=== PATIENT | female | born 1960 | race Caucasian/White ===

== ENCOUNTER → 2017-09-02 13:57 | Outpatient (CLI) | payer MEDICARE, SELFPAY ==
--- NOTE | 2017-09-02 15:33 | NEURO ---
NCS and/or EMG Patient Report Ordering Doctor: Maurisio Bueno DATE OF SERVICE: 09/02/17 Tata Ordaz is a 57-year-old female with chief complaint of weakness in the right arm. She reports difficulty obtaining full flexion of her right elbow. She notes this to be the case after fall a few months back. Testing is ordered for needle EMG only Electrodiagnostic findings: Needle EMG testing was performed in the right infraspinatus, deltoid, pronator teres, biceps, triceps, flexor carpi ulnaris, first dorsal interosseous and right cervical paraspinals. All muscles tested showed no evidence of denervation with normal motor unit action potentials. Electrodiagnostic impression: This is a normal needle EMG of the right upper limb and cervical paraspinals. There is no electrodiagnostic evidence for cervical radiculopathy. An accurate assessment regarding peripheral neuropathy cannot be determined. If symptoms persist, consider correlation with nerve conduction testing. If there are any further questions, please do not hesitate to contact me.
== END ==
PROVIDERS: Family Provider Student in an Organized Health Care Education/Training Program; PCP Student in an Organized Health Care Education/Training Program; Visit Provider Family Medicine
DX: M54.12 Radiculopathy, cervical region (principal)
CPT/HCPCS: 95860

== ENCOUNTER 2017-09-02 19:47 | Emergency (ER) | payer MEDICARE, SELFPAY ==
[2017-09-02 19:48] VITALS: BP 166/86; PULSE 65; RESP 16; TEMP 36.9; O2SAT 98; BMI 31.1
--- NOTE | 2017-09-02 20:29 | CT_ITS ---
STUDY: CT ABDOMEN AND PELVIS WITHOUT CONTRAST REASON FOR EXAM: Female, 57 years old. Left flank pain RADIATION DOSAGE (If Supplied By Facility): CTDIvol = ( 8.20 ) mGy, DLP = ( 413.64 ) mGycm TECHNIQUE: Transaxial images were obtained from the dome of the diaphragm to the symphysis pubis without oral contrast, and without intravenous contrast. Sagittal and coronal images were reconstructed. Individualized dose optimization techniques were used for this CT. COMPARISON: None. FINDINGS: The visualized lung bases are unremarkable. The visualized portions of the heart are within normal limits. Small hiatal hernia is present. Normal liver. Normal gallbladder and extrahepatic biliary system. Normal spleen. Normal pancreas. Normal bilateral adrenal glands. There are small simple cortical cysts in the upper and lower pole of the right kidney. There is moderate pelvocaliectasis of the left kidney in association with hydroureter secondary to a calculus in the upper third of the ureter measuring approximately 5 to 6 mm in size. There also appears to be a possible second smaller calculus more distally Normal visualized stomach. Normal small intestine. There are diverticular changes in the descending and sigmoid colon without evidence for acute diverticulitis.. The appendix is visualized and appears normal. Normal abdominal aorta. Normal inferior vena cava. Normal retroperitoneum. Incompletely distended diffusely thick-walled bladder likely of no significance. Normal abdominal wall. Lumbar spine demonstrates mild spondylosis. CT/Abdomen/Pelvis without Cont IMPRESSION: Moderate left hydroureteronephrosis secondary to proximal ureteral calculus measuring 5 to 6 mm in size. Cannot definitively exclude second smaller more distal calculus. Electronically Signed: Rafiq Randall MD at 21:48 EDT , Service support ,
[2017-09-02 20:44] LABS: Mucous, Urine 0 SEEN /hpf (<or=2+)
[2017-09-02] MEDS: 0.9% Normal Saline 1,000 ML 250 ML IV (20:51)
[2017-09-02] MEDS: Ondansetron 4 MG/2 ML Vial IV (20:51)
[2017-09-02] MEDS: Ketorolac 30 MG/ML Syringe IV (20:51)
[2017-09-02 20:53] LABS: Absolute Lymphocyte Count 3.21 X10^3/ul (0.83-4.51); Absolute Neutrophil Count 9.9 X10^3/uL (2.0-7.7); Basophil# 0.02 X10^3/uL; Basophil% 0.1 % (0-1); Eosinophil# 0.24 X10^3/uL; Eosinophils% 1.7 % (0-5); Hematocrit 36.8 % (37-47); Hemoglobin 12.2 g/dl (12.0-15.0); Lymphocyte # 3.21 X10^3/ul (4.0); Lymphocyte % 22.1 % (19-41); Mean Corp Hgb Conc 33.2 g/gl (32-36); Mean Corpuscular Hgb 32.7 pg (27.0-32.0); Mean Corpuscular Volume 98.7 fL (81-99); Mean Platelet Vol. 9.8 fl (6.2-12.0); Monocyte# 1.12 X10^3/uL; Monocyte% 7.7 % (0-10); Neutrophil # 9.89 X10^3/uL (2.7-7.7); Neutrophil % 68.1 % (47-70); Platelet Count 295 K/mm3 (150-450); RBC Distribution Width CV 12.8 % (11.6-14.6); Red Blood Count 3.73 M/mm3 (4.2-5.4); White Blood Count 14.5 K/mm3 (4.4-11.0)
[2017-09-02 20:55] LABS: POSITIVE COUNT NO; POSITIVE DIFFERENTIAL NO; POSITIVE MORPHOLOGY NO
[2017-09-02 20:57] LABS: Color, Urine Yellow (Yellow); Glucose, Dipstick Normal (Normal); Ketone-Dipstick Negative (Negative); Leukocyte Esterase-Dipstick 100 /ul (Negative); Nitrite-Dipstick Negative (Negative); Occult Blood-Urine 250 /ul (Negative); Protein-Dipstick 30 mg/dl (Negative); Urine Bilirubin Dipstick Negative (Negative); Urine Clarity Clear (Clear); Urine Urobilinogen Normal (Normal)
[2017-09-02 21:04] LABS: Bacteria RARE /hpf (None Seen); Calcium Oxalate Crystals Ur RARE /hpf (<or=2+); Red Blood Cells-Urine 0-5 SEEN /hpf (0-5); Squamous Epithelial Cells - UA 0-5 SEEN /hpf (5-10); White Blood Cells 0-5 SEEN /hpf (0-5)
[2017-09-02 21:17] LABS: Anion Gap 9 (5-15); BUN 14 mg/dL (7-18); BUN/Creat Ratio 10.8 RATIO (10-20); Calcium,Total 8.7 mg/dL (8.5-10.1); Chloride 104 mmol/L (98-107); EST Glomerular Filtration Rate 45 mL/min (>60); Est Glom Filt Rate - Afr Amer 54 mL/min (>60); Estimated Creatinine Clearance 33.47 ml/min; Glucose 106 mg/dL (74-106); Potassium 3.5 mmol/L (3.5-5.1); Sodium Level 140 mmol/L (136-145)
[2017-09-02 21:39] VITALS: BP 143/78; PULSE 70; RESP 16; O2SAT 98
--- NOTE | 2017-09-02 22:15 | ED.DCSUM_ITS ---
- ER Visit Summary Date of Service: 09/02/17 Chief Complaint: Left flank pain History of Present Illness: The patient is a 57 F who states that today she around 3:00 she has sudden onset of left flank pain. Described as pressure and sharp and stabbing. The pain comes in waves and is severe when it is present. She has had similar pains in the past when she has had kidney stones. She is seeing Dr. Garzon in [place] for urology. She denies any blood in the stool. She has had to have lithotripsy as well as ureteral stents before. No fevers. She does note nausea. The patient points to her inguinal region as the source of her pain that radiates into the left flank. Physical Examination: Afebrile vital signs are stable Gen: Well-nourished well-developed patient appears in pain pacing around the room. Head: Normocephalic atraumatic Eyes: Perrl EOMI ENT: TMs clear no rhinorrhea moist mucous membranes Neck: Supple no lymphadenopathy no JVD nontender CVS: Regular rate rhythm no murmurs normal S1-S2 Respiratory: No distress clear to auscultation bilaterally chest nontender Abdomen: Soft nontender nondistended normal bowel sounds no masses Back: Nontender Extremity: Nontender no edema Skin: Normal color no rash Neuro: alert orientated ?3 CN II-XII intact normal strength sensation reflexes gait cerebellar Psych: Normal affect normal mood Test Results: Urine demonstrates calcium oxalate crystals. White count is slightly elevated. Normal creatinine. CT demonstrates a mid ureteral 6 mm stone with a possible second stone just in front of it. There is associated hydronephroureter. Emergency Department Course and Treatment: Patient received IV fluids and Toradol has been resting more comfortably. I will have her follow-up with Dr. Garzon. Return if worsening. I will write for De Berry, Flomax, and Zofran. She understands her plan is comfortable with it Impression: Left mid ureteral 6 mm calculus with hydronephroureter and renal colic This note was generated with [employer] dictation software. It may contain incorrect words, spelling, and punctuation that were not noted in review of the chart prior to signing ED Disposition - Plan for ED Patient: Disposition: Home or Assisted Living Chief Complaint: Flank Pain Instructions: ED Stone Renal W Colic Prescriptions: Hydrocodone Bitart/Apap 5-325 [De Berry 5/325] 1 - 2 tab PO Q4H PRN PRN 3 Days #20 tab PRN Reason: Pain Ondansetron [Zofran Odt] 4 mg PO Q8H PRN PRN #10 tab PRN Reason: Nausea Tamsulosin HCl [Flomax] 0.4 mg PO DAILY 7 Days cap Additional Instructions: Call Dr. Garzon's office tomorrow to arrange early follow-up. Return if worsening or any concerns.
[2017-09-02] MEDS: HYDROcodone Bitartrate/Apap 5/325 Tablet PO (22:19)
[2017-09-02 22:26] VITALS: BP 147/76; PULSE 68; RESP 18; O2SAT 100
== END 2017-09-02 22:27 | disposition home or self-care (01) ==
PROVIDERS: Emergency Provider Emergency Medicine; Family Provider Student in an Organized Health Care Education/Training Program; PCP Student in an Organized Health Care Education/Training Program
DX: N20.1 Calculus of ureter (principal); N13.30 Unspecified hydronephrosis; Z87.442 Personal history of urinary calculi
CPT/HCPCS: 74176; 80048; 81001; 85025; 95860; 96361; 96374; 96375; 99284; J7030; A4216; J2405

== ENCOUNTER → 2017-09-14 10:01 | Outpatient (CLI) | payer MEDICARE, SELFPAY ==
--- NOTE | 2017-09-14 10:04 | US_ITS ---
STUDY: RENAL ULTRASOUND - COMPLETE REASON FOR EXAM: Female, 57 years old. Kidney stones, hydronephrosis, follow-up from earlier CT. TECHNIQUE: Ultrasound evaluation of the kidneys was performed with real-time and static anderson-scale imaging. COMPARISON: CT abdomen and pelvis September 02, 2017; bilateral renal ultrasound December 03, 2012. FINDINGS: RIGHT KIDNEY: Normal location of the right kidney, which is normal in size. The right kidney measures 10.4 x 5.6 x 4.1 cm. There is a normal cortex of the right kidney. The renal cortex measures 1.3 cm. There is a 1.1 x 1.1 x 0.8 cm mildly exophytic cortical cyst at the medial tip of the upper pole. Occasional focal hyperechogenicity suggesting non-shadowing stones are measured by the technologist, ranging from 3-5 mm. The largest is at the upper pole. There is no right hydronephrosis. DISTAL RIGHT URETER: There is non-visualization of the distal right ureter. There is no demonstrated right ureterovesical junction calculus. There is a visualized right ureteral jet. LEFT KIDNEY: Normal location of the left kidney, which is normal in size. The left kidney measures 9.7 x 5.6 x 5.6 cm. There is a normal cortex of the left kidney. The renal cortex measures 1.7 cm. Well-defined 9 x 12 x 12 mm rounded hypoechogenicity consistent with a cortical cyst seen at the midpole. There are a few hyperechogenicity is consistent with left renal calculi. One of the largest is at the renal pelvis, measuring 4 mm. There is mild pelvocaliectasis as well as mild distention of the visualized proximal left ureter. DISTAL LEFT URETER: There is non-visualization of the distal left ureter. There is no demonstrated left ureterovesical junction calculus. There is a visualized left ureteral jet. BLADDER: The distended urinary bladder has a volume of 268 ml. The empty urinary bladder has a volume of 9.6 ml. There is a normal wall thickness of the distended urinary bladder. There is no demonstrated mass within the urinary bladder. There are no demonstrated bladder calculi. US/Kidney and Bladder IMPRESSION: 1. Bilateral renal cortical cysts, as described. 2. Focal echogenicities suggesting nonocclusive renal stones are noted bilaterally, but no definite stones were seen by CT except the occlusive stone in the left ureter. 3. Mild left hydronephrosis, consistent with obstruction. It is unclear if this is due to the ureteral stone seen on earlier CT versus other occult obstructive etiology. 4. The urinary bladder is unremarkable. Electronically Signed: Peter Brady MD at 17:22 EDT , Service support ,
== END ==
PROVIDERS: Family Provider Student in an Organized Health Care Education/Training Program; PCP Student in an Organized Health Care Education/Training Program
DX: N20.0 Calculus of kidney (principal); N20.1 Calculus of ureter; N13.30 Unspecified hydronephrosis
CPT/HCPCS: 76770

== ENCOUNTER 2018-03-25 03:29 | Emergency (ER) | payer MEDICARE, SELFPAY ==
[2018-03-25 03:30] VITALS: BP 174/76; PULSE 81; RESP 20; TEMP 36.6; O2SAT 99; BMI 32.0
--- NOTE | 2018-03-25 03:44 | EKG12_ITS ---
Test Reason : HYPERTENSION Blood Pressure : / mmHG Vent. Rate : 083 BPM Atrial Rate : 083 BPM P-R Int : 158 ms QRS Dur : 092 ms QT Int : 428 ms P-R-T Axes : 069 083 090 degrees QTc Int : 502 ms Normal sinus rhythm Cannot rule out Anterior infarct , age undetermined Prolonged QT Abnormal ECG Confirmed by EDITH GARCIA ([id number]), avid editor TAYLOR BECERRIL ([id number]) on 04/06/2018 8:23:46 AM Referred By: RISHI Confirmed By:EDITH GARCIA
[2018-03-25 04:09] LABS: Bacteria 0 SEEN /hpf (None Seen); Mucous, Urine 0 SEEN /hpf (<or=2+); Red Blood Cells-Urine 0 SEEN /hpf (0-5)
[2018-03-25 04:23] LABS: Absolute Lymphocyte Count 4.07 X10^3/ul (0.83-4.51); Absolute Neutrophil Count 3.7 X10^3/uL (2.0-7.7); Basophil# 0.02 X10^3/uL; Basophil% 0.2 % (0-1); Eosinophil# 0.45 X10^3/uL; Eosinophils% 4.8 % (0-5); Hematocrit 37.1 % (37-47); Hemoglobin 12.2 g/dl (12.0-15.0); Lymphocyte # 4.07 X10^3/ul (4.0); Lymphocyte % 43.9 % (19-41); Mean Corp Hgb Conc 32.9 g/gl (32-36); Mean Corpuscular Hgb 32.7 pg (27.0-32.0); Mean Corpuscular Volume 99.5 fL (81-99); Mean Platelet Vol. 10.5 fl (6.2-12.0); Monocyte# 1.03 X10^3/uL; Monocyte% 11.1 % (0-10); Neutrophil # 3.69 X10^3/uL (2.7-7.7); Neutrophil % 39.8 % (47-70); POSITIVE COUNT NO; POSITIVE DIFFERENTIAL NO; POSITIVE MORPHOLOGY NO; Platelet Count 333 K/mm3 (150-450); RBC Distribution Width CV 12.2 % (11.6-14.6); RBC Distribution Width SD 43.7 fl (35.1-43.9); Red Blood Count 3.73 M/mm3 (4.2-5.4); White Blood Count 9.3 K/mm3 (4.4-11.0)
[2018-03-25 04:24] LABS: Color, Urine Yellow (Yellow); Glucose, Dipstick Normal (Normal); Ketone-Dipstick Negative (Negative); Protein-Dipstick Negative (Negative); Urine Bilirubin Dipstick Negative (Negative); Urine Clarity Clear (Clear); Urine pH 6.5 (5.0 - 8.0)
[2018-03-25 04:25] LABS: Leukocyte Esterase-Dipstick 25 /ul (Negative); Nitrite-Dipstick Negative (Negative); Occult Blood-Urine Negative /ul (Negative); Urine Urobilinogen Normal (Normal)
[2018-03-25 04:33] LABS: Squamous Epithelial Cells - UA 0-5 SEEN /hpf (5-10); White Blood Cells 0-5 SEEN /hpf (0-5)
[2018-03-25 04:36] LABS: Anion Gap 8 (5-15); BUN 20 mg/dL (7-18); BUN/Creat Ratio 20.1 RATIO (10-20); Calcium,Total 9.1 mg/dL (8.5-10.1); Chloride 105 mmol/L (98-107); EST Glomerular Filtration Rate 60 mL/min (>60); Est Glom Filt Rate - Afr Amer 73 mL/min (>60); Estimated Creatinine Clearance 42.97 ml/min; Glucose 102 mg/dL (74-106); Potassium 3.2 mmol/L (3.5-5.1); Sodium Level 143 mmol/L (136-145)
[2018-03-25 04:50] VITALS: BP 139/70; PULSE 73; RESP 13; O2SAT 96
--- NOTE | 2018-03-25 04:53 | ED.VISSUMM ---
- ER Visit Summary Date of Service: 03/25/18 Chief Complaint: [Hypertension] History of Present Illness: The patient is a 58 F [presents the emergency department complaint of high blood pressure this evening. Patient states that she was getting ready to go to bed check her blood pressure and noted that it was high so she checked it again. And it was over 200 systolic. Patient states that she has been under increased stress of late. Patient did have a sensation of pressure behind her eyes and in her head as well as the back of her head and neck. Patient took 2 Aleve and those symptoms have resolved. Patient denies any chest pain or shortness of breath. Patient has had similar symptoms in the past when her blood pressures been high. Patient states normally her blood pressure runs in the normal range when she is taking her lisinopril. Patient has been compliant with her lisinopril. She denies recent illness.] Physical Examination: [HEENT-PERRLA, EOMI. Cranial nerves II through XII grossly intact. TMs clear. Mucous membranes moist. No adenopathy. Cardiovascular-regular rate and rhythm without murmur or ectopy Lungs-clear to auscultation, chest wall stable without crepitus or subcu emphysema Abdomen-normoactive bowel sounds, soft, nontender, no rebound or rigidity, no peritoneal signs. Neuro [id number] and heel singh testing within normal limits, negative Romberg, negative pronator drift Extremities-intact ?4, normal range of motion, normal pulses, atraumatic] Test Results: [EKG obtained arrival shows sinus rhythm with a ventricular rate of 83 bpm with no acute ST segment changes. CBC with differential is normal. Chemistries showed a sodium 143, potassium 3.2, chloride 105, CO2 30, glucose 102, BUN 20, creatinine 1.0. Troponin was less than 0.015. Urinalysis was normal.] Emergency Department Course and Treatment: [Patient was monitored and without any treatment her blood pressure now is 139/70 prior to discharge. Patient is asymptomatic.] Treatment Plan: Patient advised to keep a journal of her blood pressures and follow-up with her primary care physician within a week [] Disposition: [Discharged home in stable condition. Patient advised return of chest pain, shortness of breath, severe headaches, or condition should worsen anyway.] Impression: [Hypertension] This note was generated with Dragon dictation software. It may contain incorrect words, spelling, and punctuation that were not noted in review of the chart prior to signing ED Disposition - Plan for ED Patient: Chief Complaint: Hypertension Referrals: José Luis Boss DO [Primary Care Provider] -
--- NOTE | 2018-03-25 04:56 | ED.DEP ---
ED Disposition - Plan for ED Patient: Chief Complaint: Hypertension Instructions: ED HTN Established Referrals: José Luis Boss DO [Primary Care Provider] - 5-7 Days
[2018-03-25 05:07] VITALS: BP 126/69; PULSE 76; RESP 18; O2SAT 97
== END 2018-03-25 05:10 | disposition home or self-care (01) ==
LOC: ED 04:15
PROVIDERS: Emergency Provider Emergency Medicine; Family Provider Student in an Organized Health Care Education/Training Program; PCP Student in an Organized Health Care Education/Training Program
DX: I10 Essential (primary) hypertension (principal); E78.00 Pure hypercholesterolemia, unspecified; J45.909 Unspecified asthma, uncomplicated; E03.9 Hypothyroidism, unspecified
CPT/HCPCS: 80048; 81001; 84484; 85025; 93005; 99285; A4216

== ENCOUNTER 2018-07-15 03:06 | Observation (INO) | payer MEDICARE, SELFPAY ==
[2018-07-15] VITALS (11 sets, daily range): BP systolic 101–158; BP diastolic 45–91; PULSE 62–72; RESP 11–16; TEMP 36.4–36.8; O2SAT 94–98; BMI 32.4; BMI 31.8; BMI 31.9
--- NOTE | 2018-07-15 03:29 | RAD_ITS ---
HISTORY: CPChest Pain EXAM:XR Chest 2 Views: COMPARISON: 09/21/2014 FINDINGS: EKG leads in place. No significant change. Normal heart size. No vascular congestion, pleural effusion, or acute pulmonary infiltration. No pneumothorax. Previous surgical fusion of the lower cervical spine. RAD/Chest PA and Lateral IMPRESSION: No acute cardiopulmonary disease. No significant interval change. at [id number] Reported and signed by: Steven Marin MD Electronically Signed: Steven Marin, at 3:56 EST Tel , Service support ,
--- NOTE | 2018-07-15 03:29 | EKG12_ITS ---
Test Reason : CP Blood Pressure : / mmHG Vent. Rate : 073 BPM Atrial Rate : 073 BPM P-R Int : 170 ms QRS Dur : 136 ms QT Int : 474 ms P-R-T Axes : 068 101 077 degrees QTc Int : 522 ms Normal sinus rhythm Right bundle branch block Possible Inferior infarct , age undetermined Abnormal ECG Confirmed by TRIP RACHEL, SAV ([id number]), editor managing director TAYLOR BECERRIL ([id number]) on 07/19/2018 10:12:21 AM Referred By: Abdifatah Yuan Confirmed By:SAV DOMINIQUE MD
[2018-07-15] MEDS: Morphine 4 MG/ML Syringe IV (03:36)
[2018-07-15] MEDS: Aspirin 81 MG TAB.CHEW 243 MG PO (03:36)
--- NOTE | 2018-07-15 03:38 | ED.VISSUMM ---
- ER Visit Summary Date of Service: 07/15/18 Chief Complaint: [] Chest pain History of Present Illness: The patient is a 58 F presents with chest pain for last 2 days. Gradual onset. It is a continuous aching pain. Current severity is moderate. It started on her right 2 days ago and she began to feel on her left side tonight at 8 PM. She was unable to sleep this evening. She did take 2 Aleve at 8 PM and one baby aspirin this evening prior to coming into the emergency department. She was admitted for chest pain in 2014 with negative nuclear stress test. This was her last stress test. 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 She does have hypertension and a family history of early coronary artery disease as well. She denies any pulmonary embolism risk factors. Is not movement related. The patient does have a chronic right-sided rotator cuff tear which causes her pain but stated that this does not feel like that. Physical Examination: [] Vital signs reviewed General: Well-nourished well-developed Head: Normocephalic atraumatic Eyes: Pupils equal round and reactive to light extraocular movements intact ENT: TMs clear no hemotympanum no trauma Neck: Nontender full range of motion Cardiovascular: Regular rate rhythm no murmurs normal S1-S2 Respiratory: No distress clear to auscultation bilaterally chest nontender Abdomen: Soft nontender nondistended normal bowel sounds no masses Back: Nontender no CVA tenderness Extremities: Nontender active range of motion ?4 extremities no trauma Skin: Normal color no trauma Neuro alert oriented cranial nerves II through XII intact normal strength sensation reflexes Test Results: [] Emergency Department Course and Treatment: [] EKG shows sinus rhythm at a rate of 73 with a right bundle branch block noted. No STEMI pattern. This right bundle branch block is new. Lab work and chest x-ray obtained. Patient given oral aspirin times 381 mg tablets as she already took 1 tablet at home. Given morphine IV and nitroglycerin sublingual. On reevaluation patient felt better but still with some pain. Chest x-ray showed nothing acute. CBC and chemistries show a creatinine of 1.1 otherwise nothing acute. Troponin negative. Discussed case with the patient. Her heart score is a 4 which puts her at moderate risk. She has a new right bundle branch block. She is willing to be admitted for further cardiac evaluation. Have a low suspicion for PE or dissection. I do not think she needs a CT of her chest. Discussed with the hospitalist and will be admitted. Treatment Plan: [] Disposition: [] Impression: [] Chest pain Right bundle branch block This note was generated with [employer] dictation software. It may contain incorrect words, spelling, and punctuation that were not noted in review of the chart prior to signing ED Disposition - Plan for ED Patient: Referrals: José Luis Boss DO [Primary Care Provider] -
[2018-07-15 03:48] LABS: Absolute Lymphocyte Count 4.79 X10^3/ul (0.83-4.51); Absolute Neutrophil Count 3.8 X10^3/uL (2.0-7.7); Basophil# 0.02 X10^3/uL; Basophil% 0.2 % (0-1); Eosinophil# 0.45 X10^3/uL; Eosinophils% 4.5 % (0-5); Hematocrit 38.2 % (37-47); Hemoglobin 12.9 g/dl (12.0-15.0); Lymphocyte # 4.79 X10^3/ul (4.0); Lymphocyte % 48.4 % (19-41); Mean Corp Hgb Conc 33.8 g/gl (32-36); Mean Corpuscular Hgb 33.3 pg (27.0-32.0); Mean Corpuscular Volume 98.7 fL (81-99); Monocyte# 0.82 X10^3/uL; Monocyte% 8.3 % (0-10); Neutrophil # 3.79 X10^3/uL (2.7-7.7); Neutrophil % 38.3 % (47-70); Platelet Count 309 K/mm3 (150-450); RBC Distribution Width CV 12.8 % (11.6-14.6); RBC Distribution Width SD 45.4 fl (35.1-43.9); Red Blood Count 3.87 M/mm3 (4.2-5.4); White Blood Count 9.9 K/mm3 (4.4-11.0)
[2018-07-15 03:49] LABS: POSITIVE COUNT NO; POSITIVE DIFFERENTIAL NO; POSITIVE MORPHOLOGY NO
[2018-07-15 04:01] LABS: Anion Gap 8 (5-15); BUN 16 mg/dL (7-18); BUN/Creat Ratio 14.5 RATIO (10-20); Calcium,Total 8.9 mg/dL (8.5-10.1); Chloride 106 mmol/L (98-107); EST Glomerular Filtration Rate 54 mL/min (>60); Est Glom Filt Rate - Afr Amer 65 mL/min (>60); Estimated Creatinine Clearance 39.07 ml/min; Glucose 128 mg/dL (74-106); Potassium 3.5 mmol/L (3.5-5.1); Sodium Level 143 mmol/L (136-145)
--- NOTE | 2018-07-15 04:30 | HP.PCM_ITS ---
Problem List (1) Chest pain Status: Acute History of Present Illness Date of Admission: 07/15/18 Chief Complaint: chest Pain The patient is a 58 year old F with a significant history of anxiety, depression,obesity; right rotator cuff injury, neck surgery with rods, pins and cadaver bones in the neck; chronic lower back pain; hypertension, Alfreda's thyroiditis and hyperlipidemia who presented with 2-day history of progressively worsening chest pain. Her chest pain began from her right shoulder where she usually have pain from her rotator cuff injury. However she reports that the pain at the right shoulder was different from previous. The pain radiated to her left shoulder and to her bilateral pectoralis muscles; and to her bilateral trapezius and to her lower back. Also the pain radiates to her bilateral neck. She reports diaphoresis upon waking up and subsequently coming to the ED. She described her chest pain as continuous and aching. Patient reported that about 20 years ago she had a negative treadmill stress test; and about 4 years ago she had a negative chemical stress test. 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 Wade was going to schedule her for an outpatient stress test but because of kidney stones she could not do the outpatient stress test at that time. She reports that about a week ago she had a concerning acid reflux symptoms. She reported that she has been undergoing emotional stress recently. At emergency department EKG showed right bundle branch block. She reports that her mother has had multiple heart attacks. Her mother has had a CABG and coronary stents. Her mother's first heart attack was in her 50s. She was adopted and she does not know the medical history of her biological father. Past Medical History Past Medical History (Chronic Problems): Chronic Problems Hypertension (Chronic) Osteoarthritis (Chronic) Hypothyroidism (Chronic) Hyperlipidemia (Chronic) Overweight (BMI 25.0-29.9) (Chronic) Chronic back pain (Chronic) Asthma (Chronic) Allergies shellfish derived Allergy (Unknown, Verified 07/15/18 03:10) Unknown gabapentin Allergy (Verified 07/15/18 03:10) Other audible hallucinations prochlorperazine edisylate [From Compazine] Adverse Reaction (Intermediate, Verified 07/15/18 03:10) Other makes me crazy, want to climb the damian, anxious prochlorperazine maleate [From Compazine] Adverse Reaction (Intermediate, Verified 07/15/18 03:10) Other makes me crazy, want to climb the damian, anxious Iodinated Contrast- Oral and IV Dye [CONTRASTS] Adverse Reaction (Verified 07/15/18 03:10) Other Home Medications: Ambulatory Orders Medication Instructions Recorded Duloxetine Hcl [Cymbalta] 60 mg PO DAILY 07/07/13 Levothyroxine Sodium [Levoxyl] 125 mcg PO DAILY 07/07/13 Magnesium 700 mg PO DAILY 07/07/13 Lisinopril [Zestril] 10 mg PO DAILY 02/28/14 Multivitamin [Daily Multiple 1 each PO DAILY 03/25/18 Vitamin] Ubidecarenone [Co Q-10] 10 mg PO DAILY 03/25/18 Cholecalciferol (Vitamin D3) 2,000 units PO QHS 07/15/18 [Vitamin D3] Cyclobenzaprine HCl 5 mg PO QHS PRN 07/15/18 Surgical History: - - ?3, hysterectomy, eyelid surgery, cervical fusion. 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 Paternal History Items: - - Patient reported that she was adopted and does not know her paternal medical history. Review of Systems Constitutional: Denies: Chills, Fever, Weight Change HEENT: Denies: Head Aches, Sinus Congestion, Sinus Drainage Cardiovascular: Reports: Chest Pain. Denies: Palpitations Respiratory: Denies: Cough, Shortness of breath at rest, Sputum production Gastrointestinal: Denies: Abdominal Pain, Nausea, Vomiting Genitourinary: Denies: Dysuria Musculoskeletal: Reports: Back Pain. Denies: Joint Pain, Joint Tenderness Skin: Denies: Rash, Wounds Neurological: Denies: Numbness, Tingling, Focal weakness Psychiatric: Denies: Anxiety, Depression, Homicidal Ideations, Suicidal Ideations Hematologic/ Lymphatic: Denies: Easy Bruising, Easy Bleeding VTE Information - Inpt Only VTE Present on Admission: No VTE Mechan Device Prophylaxis: None VTE Pharm Prophylaxis ordered?: Yes - Physical Exam General: Alert, Oriented x3, Cooperative HEENT: Atraumatic, PERRLA, EOMI, Normocephalic Neck: Supple, No JVD, Negative Carotid Bruits Lungs: Clear to auscultation, Normal air movement, - Cardiovascular: Regular rate, No murmurs Abdomen: Bowel Sounds Present, Soft, Non Tender Extremities: No edema, Capillary Refill Less than 3 Seconds Skin: No rashes, No breakdown Musculoskeletal: No Muscle Wasting, Tenderness - chest Neurological: Neuro grossly intact Psych/Mental Status: Normal Affect, Appropriate Vital Signs Temp Pulse Resp BP Pulse Ox 98 F 68 16 137/65 H 98 07/15/18 03:07 07/15/18 03:36 07/15/18 03:07 07/15/18 03:36 07/15/18 03:07 Oxygen Delivery Method Room Air Weight: 75.4 kg Body Mass Index (BMI) 32.4 Laboratory Tests Past 24 Hrs 07/15/18 07/15/18 03:15 03:15 WBC 9.9 RBC 3.87 L Hgb 12.9 Hct 38.2 MCV 98.7 MCH 33.3 H MCHC 33.8 RDW 12.8 RDW Differential 45.4 H Plt Count 309 MPV 11.0 Immature Gran % (Auto) 0.300 Neut % (Auto) 38.3 L Lymph % (Auto) 48.4 H [place] % (Auto) 8.3 Eos % (Auto) 4.5 Baso % (Auto) 0.2 Absolute Neuts (auto) 3.8 Absolute Lymphs (auto) 4.79 H Total Counted Not Reportable Sodium 143 Potassium 3.5 Chloride 106 Carbon Dioxide 29.0 Anion Gap 8 BUN 16 Creatinine 1.10 H Estim Creat Clear Calc 39.07 Est GFR (MDRD) Af Amer 65 Est GFR (MDRD) Non-Af 54 L BUN/Creatinine Ratio 14.5 Glucose 128 H Calcium 8.9 Troponin I < 0.015 Assessment/Plan All Active Problems Chest pain (Acute) The patient is a 58 year old F with a significant history of anxiety, depression, obesity; right rotator cuff injury, neck surgery with rods, pins and cadaver bones in the neck; back pain hypertension, Alfreda's thyroiditis and hyperlipidemia who presented with 2-day history of progressively worsening chest pain and with a concerning family history of heart disease. Chest pain Admit to a monitored bed on PCU CXR independently reviewed confirms no acute cardiopulmonary process. EKG independently reviewed confirms right bundle branch block. Old records reviewed showed that the right bundle branch block is new. At the emergency department patient received aspirin at 243 mg. Emergency department doctor reported that few hours before patient came to emergency department she took 2 Aleve and one baby aspirin. Consider further aspirin therapy after chemical stress test will be ordered. Morphine as needed for pain We will check lipid panel. She reports adverse effects of joint pain with statins. Statin not ordered. Serial cardiac enzymes Stat EKG as needed for chest pain Chemical stress test in the AM if the cardiac enzymes are negative Lisinopril continued Hypertension On presentation blood pressure was fairly stable. Lisinopril continued. Trend blood pressure and adjust blood pressure medication as necessary. Alfreda thyroiditis Synthroid continued History of rotator cuff injury and back pain Flexeril and Cymbalta continued Depression and anxiety: Cymbalta continued. DVT prophylaxis Heparin subcutaneous ordered. Code Visit OBSV E&M: [id number] Initial observation care L3
--- NOTE | 2018-07-15 05:50 | EKG12_ITS ---
Test Reason : ADM EKG Blood Pressure : / mmHG Vent. Rate : 062 BPM Atrial Rate : 062 BPM P-R Int : 172 ms QRS Dur : 132 ms QT Int : 516 ms P-R-T Axes : 070 093 089 degrees QTc Int : 523 ms Normal sinus rhythm Right bundle branch block Abnormal ECG When compared with ECG of 15-JUL-2018 03:10, MANUAL COMPARISON REQUIRED, DATA IS UNCONFIRMED Confirmed by TRIP RACHEL, SAV ([id number]), editor farm journal TAYLOR BECERRIL ([id number]) on 07/22/2018 11:51:54 AM Referred By: Abdifatah Yuan Confirmed By:SAV DOMINIQUE MD
[2018-07-15] MEDS: Levothyroxine 125 MCG Tablet PO (06:52)
[2018-07-15 06:55] LABS: Cholesterol 290 mg/dL (200); High Density Lipoprotein 37 mg/dL; Triglycerides 226 mg/dL; Very Low Density Lipoprotein 45 mg/dL (5-40)
[2018-07-15] MEDS: 0.9% NaCl Peripheral Flush Adult/Peds IV (10:06)
[2018-07-15] MEDS: Morphine 2 MG/ML Syringe IV (10:06)
[2018-07-15 10:33] LABS: Hemoglobin A1c 5.6 % (4.2-6.3)
--- NOTE | 2018-07-15 11:22 | PCA ---
pt off floor
[2018-07-15 11:29] LABS: Free T3 1.7 pg/mL (2.18-3.98); T4 Free Direct 0.67 ng/dL (0.76-1.46)
--- NOTE | 2018-07-15 12:10 | STRESSREP ---
Stress Test Report Pharmacologic myocardial perfusion stress test. 58-year-old lady with a history of chest pain. Stress protocol: Resting EKG demonstrates normal sinus rhythm with a rate of 60 bpm normal intervals noted resting blood pressure 131/68 mmHg. Right bundle branch block pattern is noted. 0.4 mg of regadenoson was infused per usual protocol followed by rapid intravenous saline flush injection continuous EKG monitoring was performed. The maximum heart rate attained was 83 bpm which was 51% of maximum predicted heart rate. At rest and during peak infusion there were no ST or T wave changes noted suggest ischemia. The final blood pressure was 133/66. Myocardial perfusion protocol. 11.4 mCi of technetium 99m sestamibi was injected at rest. 0.4 mg of regadenoson was infused per usual protocol peak infusion 34.2 mCi of technetium 99m sestamibi was injected stress images were obtained stress and rest images were reconstructed and compared in the short axis vertical long and horizontal long axis. Gated images were also obtained Perfusion SPECT analysis: Review of the stress images demonstrate normal uptake of tracer noted in all areas of the myocardium. The resting images similarly demonstrate normal uptake of tracer noted in all areas of myocardium. No areas of reversibility are noted suggest ischemia no previous infarct is noted Gated SPECT analysis: The gated ejection fraction is noted to be 85% Conclusion: Normal pharmacologic myocardial perfusion stress test. Preserved ejection fraction.
--- NOTE | 2018-07-15 13:38 | PCM.DC ---
You will use the following diet at home:: Cardiac Your food should be the consistency of: Regular Your liquids should be the consistency of: Regular/Thin Discharge Activity: Return to Normal Activity Additional Instructions: You need to talk to your primary care provider about having a sleep study performed for your night time breathing issues. You will also need close follow up for your thyroid issues, with follow up thyroid lab studies. Allergies/Adverse Reactions: Allergies shellfish derived Allergy (Unknown, Verified 07/15/18 03:10) Unknown gabapentin Allergy (Verified 07/15/18 03:10) Other audible hallucinations prochlorperazine edisylate [From Compazine] Adverse Reaction (Intermediate, Verified 07/15/18 03:10) Other makes me crazy, want to climb the damian, anxious prochlorperazine maleate [From Compazine] Adverse Reaction (Intermediate, Verified 07/15/18 03:10) Other makes me crazy, want to climb the damian, anxious epinephrine [From Adrenalin] Adverse Reaction (Verified 07/15/18 05:47) Other Iodinated Contrast- Oral and IV Dye [CONTRASTS] Adverse Reaction (Verified 07/15/18 03:10) Other Ltxxhuc-Qwg-Bqc Reductase Inhibitor Adverse Reaction (Verified 07/15/18 05:47) Pain in joints Medications to take at Discharge Duloxetine Hcl [Cymbalta] 60 mg PO QHS 07/07/13 Magnesium 700 mg PO QHS 07/07/13 Lisinopril [Zestril] 10 mg PO QHS 02/28/14 Multivitamin [Daily Multiple Vitamin] 1 each PO QHS 03/25/18 Ubidecarenone [Co Q-10] 10 mg PO QHS 03/25/18 Cholecalciferol (Vitamin D3) [Vitamin D3] 2,000 units PO QHS 07/15/18 Cyclobenzaprine HCl 5 mg PO QHS PRN 07/15/18 Levothyroxine [Synthroid] 150 mcg PO DAILY@0600 #30 tab 07/15/18 The following prescriptions were given: Levothyroxine [Synthroid] 150 mcg PO DAILY@0600 #30 tab Primary Care Physician: José Luis Boss DO [Primary Care Provider] - Please follow up with your Primary Care Physician in: 1-2 weeks Test Results: Test results from this visit will be discussed in further detail at your follow-up appointment, if applicable. Please Follow Up With: Your Rehab Liaison When: 2 weeks Proposed Discharge Date: 07/15/18
--- NOTE | 2018-07-15 14:20 | DS.PCM_ITS ---
<Armond Porter - Last Filed: 07/15/18 14:15> Discharge Date and Diagnosis Date of Admission: 07/15/18 Date of Discharge: 07/15/18 - Primary Discharge Diagnosis Chest pain - musculoskeletal Alfreda thyroiditis HTN Chronic back pain, shoulder pain, rotator cuff injury Depression and anxiety - Secondary Discharge Diagnosis Chronic Problems Hypertension (Chronic) Osteoarthritis (Chronic) Hypothyroidism (Chronic) Hyperlipidemia (Chronic) Overweight (BMI 25.0-29.9) (Chronic) Chronic back pain (Chronic) Asthma (Chronic) Hospital Course and Treatment Imaging Results: 07/15/18 05:50 Nuclear Stress Test - Chemical [NM] Routine Conclusion: Normal pharmacologic myocardial perfusion stress test. Preserved ejection fraction. RAD/Chest PA and Lateral IMPRESSION: No acute cardiopulmonary disease. No significant interval change. Operations: None Procedures: Stress test Summary of Care Provided: Hospital Course: The patient is a 58 year old F with past medical history of Alfreda thyroiditis, hypertension, anxiety and depression, obesity, who presented to the emergency room with veins of chest pain across her anterior chest wall. She had a negative chest x-ray, negative EKG, negative troponin. She was admitted to the PCU on telemetry for chest pain workup. Telemetry remained negative. Troponin was negative x3. Following morning she underwent stress test. This was negative. She had noted that she had not had her thyroid checked in a while, and noted increased weight gain and paroxysmal nocturnal dyspnea. She had TSH was checked and was elevated at 79, T3 and T4 were low. Levothyroxine was increased to 150/day. 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 She was also advised to follow-up with her PCP. She was advised that she would need repeat thyroid studies to measure the efficacy of therapy. She was also advised that she should talk to her PCP about having a sleep study with her PND and weight gain. Cardiac etiology was ruled out for her chest pain and it was felt to be musculoskeletal. She was discharged home in stable condition. This patient was seen by Armond Porter PA-C under the supervision of Doctor Yunior. [] - Physical Exam General: Alert, Oriented x3, Cooperative HEENT: Atraumatic, PERRLA, EOMI, Normocephalic Neck: Supple, No JVD, Negative Carotid Bruits Lungs: Clear to auscultation, Normal air movement Cardiovascular: Regular rate, No murmurs Abdomen: Bowel Sounds Present, Soft, Non Tender, Obese Extremities: No edema, Capillary Refill Less than 3 Seconds Skin: No rashes, No breakdown Musculoskeletal: No Tenderness to Palpation of Joints or Extremities Neurological: Cranial nerves II-XII grossly intact Psych/Mental Status: Normal Affect, Appropriate, Alert and oriented to time, place, person, mood and affect Vital Signs Temp Pulse Resp BP Pulse Ox 97.5 F L 62 16 149/91 H 94 07/15/18 10:00 07/15/18 10:00 07/15/18 10:00 07/15/18 10:00 07/15/18 10:00 Oxygen Delivery Method Room Air Weight: 163 lb 5.8 oz Body Mass Index (BMI) 31.8 Intake and Output for Last 24 Hours 07/13/18 07/14/18 07/15/18 23:59 23:59 23:59 Intake Total 0 / 0 Output Total 0 / 0 Balance 0 / 0 Laboratory Tests Past 24 Hrs 07/15/18 07/15/18 07/15/18 03:15 03:15 06:30 WBC 9.9 RBC 3.87 L Hgb 12.9 Hct 38.2 MCV 98.7 MCH 33.3 H MCHC 33.8 RDW 12.8 RDW Differential 45.4 H Plt Count 309 MPV 11.0 Immature Gran % (Auto) 0.300 Neut % (Auto) 38.3 L Lymph % (Auto) 48.4 H Isabela % (Auto) 8.3 Eos % (Auto) 4.5 Baso % (Auto) 0.2 Absolute Neuts (auto) 3.8 Absolute Lymphs (auto) 4.79 H Total Counted Not Reportable Sodium 143 Potassium 3.5 Chloride 106 Carbon Dioxide 29.0 Anion Gap 8 BUN 16 Creatinine 1.10 H Estim Creat Clear Calc 39.07 Est GFR (MDRD) Af Amer 65 Est GFR (MDRD) Non-Af 54 L BUN/Creatinine Ratio 14.5 Glucose 128 H Hemoglobin A1c Calcium 8.9 Troponin I < 0.015 < 0.015 Triglycerides 226 H Cholesterol 290 H LDL Cholesterol 208 H VLDL Cholesterol 45 H HDL Cholesterol 37 L TSH Free T4 Free T3 pg/dL 02/12/2407/15/18 07/15/18 09:00 09:00 09:00 WBC RBC Hgb Hct MCV MCH MCHC RDW RDW Differential Plt Count MPV Immature Gran % (Auto) Neut % (Auto) Lymph % (Auto) Isabela % (Auto) Eos % (Auto) Baso % (Auto) Absolute Neuts (auto) Absolute Lymphs (auto) Total Counted Sodium Potassium Chloride Carbon Dioxide Anion Gap BUN Creatinine Estim Creat Clear Calc Est GFR (MDRD) Af Amer Est GFR (MDRD) Non-Af BUN/Creatinine Ratio Glucose Hemoglobin A1c 5.6 Calcium Troponin I < 0.015 Triglycerides Cholesterol LDL Cholesterol VLDL Cholesterol HDL Cholesterol TSH 79.80 H Free T4 Free T3 pg/dL 07/15/18 09:00 WBC RBC Hgb Hct MCV MCH MCHC RDW RDW Differential Plt Count MPV Immature Gran % (Auto) Neut % (Auto) Lymph % (Auto) Isabela % (Auto) Eos % (Auto) Baso % (Auto) Absolute Neuts (auto) Absolute Lymphs (auto) Total Counted Sodium Potassium Chloride Carbon Dioxide Anion Gap BUN Creatinine Estim Creat Clear Calc Est GFR (MDRD) Af Amer Est GFR (MDRD) Non-Af BUN/Creatinine Ratio Glucose Hemoglobin A1c Calcium Troponin I Triglycerides Cholesterol LDL Cholesterol VLDL Cholesterol HDL Cholesterol TSH Free T4 0.67 L Free T3 pg/dL 1.7 L Discharge Diet: Low fat/ Low Cholesterol, 2000 mg Sodium Diet Discharge Activity: Return to Normal Activity Additional Activity Instructions:: Talk to her family medicine doctor about having a sleep study performed. Home Medications: Medications to take at Discharge Duloxetine Hcl [Cymbalta] 60 mg PO QHS 07/07/13 Magnesium 700 mg PO QHS 07/07/13 Lisinopril [Zestril] 10 mg PO QHS 02/28/14 Multivitamin [Daily Multiple Vitamin] 1 each PO QHS 03/25/18 Ubidecarenone [Co Q-10] 10 mg PO QHS 03/25/18 Cholecalciferol (Vitamin D3) [Vitamin D3] 2,000 units PO QHS 07/15/18 Cyclobenzaprine HCl 5 mg PO QHS PRN 07/15/18 Levothyroxine [Synthroid] 150 mcg PO DAILY@0600 #30 tab 07/15/18 Following Prescrptions Were Given to Patient: Levothyroxine [Synthroid] 150 mcg PO DAILY@0600 #30 tab Primary Care Physician: José Luis Boss DO [Primary Care Provider] - Please follow up with your Primary Care Physician in: 1-2 weeks Please Follow Up With: Your Table Cover Folder When: 2 weeks Disposition: Home Minutes spent on discharge:: 35 Patient Condition:: Stable Medical Necessity - Tobacco Use Smoking Status: Never smoker Meaningful Use Info Meaningful Use Diagnoses (Choose all that apply): None applicable <Alfonso Mojica - Last Filed: 07/15/18 16:18> Discharge Date and Diagnosis - Secondary Discharge Diagnosis Chronic Problems Hypertension (Chronic) Osteoarthritis (Chronic) Hypothyroidism (Chronic) Hyperlipidemia (Chronic) Overweight (BMI 25.0-29.9) (Chronic) Chronic back pain (Chronic) Asthma (Chronic) Hospital Course and Treatment Operations: None Procedures: Stress test Summary of Care Provided: Patient seen and examined independently. Data reviewed. I agree with the above note by the physician payroll human resources assistant. The patient is a 58 year old F presents with chest pain. There is concern as there is noted to be a new right bundle branch block on EKG. Patient was admitted underwent a stress test. The stress test came back and was normal. I reviewed the EKG and reviewed the previous EKG with the patient and patient did have an incomplete right bundle branch block back in March. So there is a new bundle branch block. However, I try to reassure the patient that there is no sign of any acute cardiac ischemia but I did recommend patient have further treatment of her hypothyroidism and possible sleep apnea as these may be c oncerning factor to some these EKG changes. Patient did have an elevated T4 and T3. I advised the patient to increase her Synthroid from 125-150 mg daily. Patient did have history of sleep apnea and was on CPAP for period of time but then she lost weight when her Alfreda's was active when she was hyperthyroid is him. She is now hypothyroid and has put back on the weight that she had lost when she was hyperthyroid. She does endorse that she has paroxysmal nocturnal dyspnea. I advised patient follow-up for sleep study and a reevaluation of sleep apnea. [] - Physical Exam General: Alert, Cooperative HEENT: Atraumatic, Normocephalic Lungs: Clear to auscultation, Normal air movement, No rhonchi, No wheeze Cardiovascular: Regular rate, Regular Rhythm, Normal S1, Normal S2, No murmurs Vital Signs Temp Pulse Resp BP Pulse Ox 36.8 C 67 16 147/74 H 95 07/15/18 14:37 07/15/18 14:37 07/15/18 14:37 07/15/18 14:37 07/15/18 14:37 Oxygen Delivery Method Room Air Weight: 74.1 kg Body Mass Index (BMI) 31.8 Intake and Output for Last 24 Hours 07/13/18 07/14/18 07/15/18 23:59 23:59 23:59 Intake Total 0 / 0 Output Total 0 / 0 Balance 0 / 0 Laboratory Tests Past 24 Hrs 07/15/18 07/15/18 07/15/18 03:15 03:15 06:30 WBC 9.9 RBC 3.87 L Hgb 12.9 Hct 38.2 MCV 98.7 MCH 33.3 H MCHC 33.8 RDW 12.8 RDW Differential 45.4 H Plt Count 309 MPV 11.0 Immature Gran % (Auto) 0.300 Neut % (Auto) 38.3 L Lymph % (Auto) 48.4 H Isabela % (Auto) 8.3 Eos % (Auto) 4.5 Baso % (Auto) 0.2 Absolute Neuts (auto) 3.8 Absolute Lymphs (auto) 4.79 H Total Counted Not Reportable Sodium 143 Potassium 3.5 Chloride 106 Carbon Dioxide 29.0 Anion Gap 8 BUN 16 Creatinine 1.10 H Estim Creat Clear Calc 39.07 Est GFR (MDRD) Af Amer 65 Est GFR (MDRD) Non-Af 54 L BUN/Creatinine Ratio 14.5 Glucose 128 H Hemoglobin A1c Calcium 8.9 Troponin I < 0.015 < 0.015 Triglycerides 226 H Cholesterol 290 H LDL Cholesterol 208 H VLDL Cholesterol 45 H HDL Cholesterol 37 L TSH Free T4 Free T3 pg/dL 07/15/18 07/15/18 07/15/18 09:00 09:00 09:00 WBC RBC Hgb Hct MCV MCH MCHC RDW RDW Differential Plt Count MPV Immature Gran % (Auto) Neut % (Auto) Lymph % (Auto) Isabela % (Auto) Eos % (Auto) Baso % (Auto) Absolute Neuts (auto) Absolute Lymphs (auto) Total Counted Sodium Potassium Chloride Carbon Dioxide Anion Gap BUN Creatinine Estim Creat Clear Calc Est GFR (MDRD) Af Amer Est GFR (MDRD) Non-Af BUN/Creatinine Ratio Glucose Hemoglobin A1c 5.6 Calcium Troponin I < 0.015 Triglycerides Cholesterol LDL Cholesterol VLDL Cholesterol HDL Cholesterol TSH 79.80 H Free T4 Free T3 pg/dL 07/15/18 09:00 WBC RBC Hgb Hct MCV MCH MCHC RDW RDW Differential Plt Count MPV Immature Gran % (Auto) Neut % (Auto) Lymph % (Auto) Isabela % (Auto) Eos % (Auto) Baso % (Auto) Absolute Neuts (auto) Absolute Lymphs (auto) Total Counted Sodium Potassium Chloride Carbon Dioxide Anion Gap BUN Creatinine Estim Creat Clear Calc Est GFR (MDRD) Af Amer Est GFR (MDRD) Non-Af BUN/Creatinine Ratio Glucose Hemoglobin A1c Calcium Troponin I Triglycerides Cholesterol LDL Cholesterol VLDL Cholesterol HDL Cholesterol TSH Free T4 0.67 L Free T3 pg/dL 1.7 L Discharge Diet: Low fat/ Low Cholesterol, 2000 mg Sodium Diet Discharge Activity: Return to Normal Activity Disposition: Home Patient Condition:: Stable Medical Necessity - Tobacco Use Smoking Status: Never smoker Meaningful Use Info Meaningful Use Diagnoses (Choose all that apply): None applicable Code Visit OBSV E&M: 93580 Observation care discharge
== END 2018-07-15 14:14 | disposition home or self-care (01) ==
LOC: ED 04:38 → PCU 04:46
PROVIDERS: Physician Assistant; Admitting Provider Hospitalist; Emergency Provider Emergency Medicine; Family Provider Student in an Organized Health Care Education/Training Program; PCP Student in an Organized Health Care Education/Training Program; Referring Provider Hospitalist
DX: R07.89 Other chest pain (principal); I45.10 Unspecified right bundle-branch block; J45.909 Unspecified asthma, uncomplicated; I10 Essential (primary) hypertension; F41.9 Anxiety disorder, unspecified; F32.9 Major depressive disorder, single episode, unspecified; E78.5 Hyperlipidemia, unspecified; E06.3 Autoimmune thyroiditis; Z79.899 Other long term (current) drug therapy; Z82.49 Family history of ischemic heart disease and other diseases of the circulatory system; M19.90 Unspecified osteoarthritis, unspecified site; E66.9 Obesity, unspecified; Z68.31 Body mass index [BMI] 31.0-31.9, adult; Z71.3 Dietary counseling and surveillance
CPT/HCPCS: 36415; 71046; 78452; 80048; 80061; 83036; 84439; 84443; 84481; 84484; 85025; 93005; 93017; 99218; 99285; A9500; A4216; G0378; J2785

== ENCOUNTER 2018-08-25 15:44 | Emergency (ER) | payer MEDICARE, SELFPAY ==
[2018-07-15 05:29] VITALS: BMI 31.8
[2018-08-25 15:45] VITALS: BP 149/68; PULSE 87; RESP 16; TEMP 36.8; O2SAT 98; BMI 31.1
--- NOTE | 2018-08-25 15:58 | RAD_ITS ---
STUDY: X-RAY - CERVICAL SPINE REASON FOR EXAM: Female, 58 years old. Pain after lifting TECHNIQUE: 3 view(s) of the cervical spine were obtained. COMPARISON: None FINDINGS: Normal anterior atlantoaxial articulation. Normal odontoid process. Patient has undergone previous anterior cervical fusion between C5 and C7. Hardware is intact and free of complication. Normal cervical lordosis. Normal vertebral bodies and endplates. Mild disc space narrowing. The soft tissue structures are unremarkable. RAD/Cerv Spine 2 or 3 Views IMPRESSION: Mild degenerative and postsurgical changes in the cervical spine, no demonstrated fracture or suspicious osseous lesion Electronically Signed: Peter Pierre MD at 16:50 EDT , Service support ,
--- NOTE | 2018-08-25 16:00 | ED.VISSUMM ---
- ER Visit Summary Date of Service: 08/25/18 Chief Complaint: Neck pain History of Present Illness: The patient is a 58 F who complains of low neck pain over the past 3 days after working out. She had a cervical fusion 4 years ago is concerned about her hardware. She denies pain radiating to her arms. She denies paresthesias or weakness. She is been taking anti-inflammatories and muscle relaxers. Physical Examination: Vital signs unremarkable. Patient standing at bedside no acute distress. Head neck examination reveals no sign of trauma. She does have reproducible midline and bilateral lower cervical paraspinal tenderness. Heart is regular rate and rhythm. Lung sounds are clear. Abdomen is soft nontender. Extremity examination reveals normal strength and sensation in both arms. She has strong and equal radial pulses. Test Results: Cervical spine x-rays reveal mild degenerative and postsurgical changes. No fracture. Hardware is intact without complication. Emergency Department Course and Treatment: Patient is reassured with these findings. She will continue her anti-inflammatories and muscle relaxers as needed. Treatment Plan: [] Disposition: Discharge Impression: Cervical strain This note was generated with [employer] dictation software. It may contain incorrect words, spelling, and punctuation that were not noted in review of the chart prior to signing ED Disposition - Plan for ED Patient: Referrals: José Luis Boss DO [Primary Care Provider] -
--- NOTE | 2018-08-25 17:03 | ED.DEP ---
ED Disposition - Plan for ED Patient: Disposition: Home or Assisted Living Instructions: ED Sprain Strain Neck Referrals: José Luis Boss DO [Primary Care Provider] - 1 Week if not improving
== END 2018-08-25 17:20 | disposition home or self-care (01) ==
PROVIDERS: Emergency Provider Emergency Medicine; Family Provider Student in an Organized Health Care Education/Training Program; PCP Student in an Organized Health Care Education/Training Program
DX: S16.1XXA Strain of muscle, fascia and tendon at neck level, initial encounter (principal); X58.XXXA Exposure to other specified factors, initial encounter; Y93.A9 Activity, other involving cardiorespiratory exercise; Y92.9 Unspecified place or not applicable; Y99.9 Unspecified external cause status; Z98.1 Arthrodesis status; I10 Essential (primary) hypertension; E78.00 Pure hypercholesterolemia, unspecified; J45.909 Unspecified asthma, uncomplicated
CPT/HCPCS: 72040; 99282

== ENCOUNTER 2020-05-06 13:44 | Emergency (ER) | payer MEDICARE, SELFPAY ==
[2020-05-06 13:45] VITALS: BP 127/67; PULSE 79; RESP 18; TEMP 36.4; O2SAT 96; O2SAT 97; BMI 32.8
[2020-05-06 13:48] VITALS: BP 127/67; PULSE 79; RESP 16; TEMP 36.4; O2SAT 97
--- NOTE | 2020-05-06 13:49 | ED.VIS.GEN ---
History of Present Illness Chief Complaint: Shortness of Breath Past Medical History - Allergies and Home Meds Allergies/Adverse Reactions: Allergies shellfish derived Allergy (Unknown, Verified 05/06/20 13:45) Unknown gabapentin Allergy (Verified 05/06/20 13:45) Other audible hallucinations prochlorperazine edisylate [From Compazine] Adverse Reaction (Intermediate, Verified 05/06/20 13:45) Other makes me crazy, want to climb the damian, anxious prochlorperazine maleate [From Compazine] Adverse Reaction (Intermediate, Verified 05/06/20 13:45) Other makes me crazy, want to climb the damian, anxious epinephrine [From Adrenalin] Adverse Reaction (Verified 05/06/20 13:45) Other Iodinated Contrast Media [CONTRASTS] Adverse Reaction (Verified 05/06/20 13:45) Other Ktbfkta-Rdy-Scn Reductase Inhibitor Adverse Reaction (Verified 05/06/20 13:45) Pain in joints Primary Care Physician: José Luis Boss DO [Primary Care Provider] - Surgical History: - - ?3, hysterectomy, eyelid surgery, cervical fusion. Smoking Status: Never smoker - Family History Maternal Family History: Reports: Heart Disease - Mother with CABG in 50s. Paternal Family History: Reports: - - Patient reported that she was adopted and does not know her paternal medical history. Physical Exam Vital Signs/Narrative: Vital Signs Temp Pulse Resp BP Pulse Ox 05/06/20 13:45 97.5 F L 79 18 127/67 H 97 ED Disposition - Plan for ED Patient: Referrals: José Luis Boss DO [Primary Care Provider] -
--- NOTE | 2020-05-06 14:02 | RAD_ITS ---
STUDY: X-RAY CHEST REASON FOR EXAM: Female, 60 years old. increased sob, headache, muscle ache, congestion TECHNIQUE: AP COMPARISON: 07/15/2018 FINDINGS: Fusion hardware of the lower cervical spine. The lungs are clear and expanded. There is no demonstrated pleural abnormality. Normal size heart. Normal mediastinum and royer. Normal visualized pulmonary arteries. Normal visualized aortic arch and descending thoracic aorta. Normal visualized thoracic spine. Normal visualized ribs, clavicles, and shoulders. There is no demonstrated abnormality of the visualized soft tissue structures of the upper abdomen. RAD/Chest 1 View (Portable) IMPRESSION: Stable, nonacute portable x-ray examination of the chest. Electronically Signed: Jaylen Mohr MD ([place]) at 14:52 EST , Service support ,
--- NOTE | 2020-05-06 14:02 | EKG12_ITS ---
Test Reason : Blood Pressure : / mmHG Vent. Rate : 072 BPM Atrial Rate : 072 BPM P-R Int : 138 ms QRS Dur : 088 ms QT Int : 424 ms P-R-T Axes : 074 075 085 degrees QTc Int : 464 ms Normal sinus rhythm Normal ECG Confirmed by TRIP RACHEL, SAV ([id number]), editor map VAMSI PINZON ([id number]) on 05/08/2020 9:18:16 AM Referred By: ART Confirmed By:SAV DOMINIQUE MD
[2020-05-06 14:03] VITALS: O2SAT 95
[2020-05-06 14:04] VITALS: O2SAT 95
--- NOTE | 2020-05-06 14:08 | ED.VIS.GEN ---
History of Present Illness Chief Complaint: Shortness of Breath Informant: Patient Narrative: 60-year-old female presenting with burning chest pain on deep inspiration. She states that she started having a sore throat and painful tongue about 10 days ago. Her tongue and throat pain have resolved. She has had a fever at home as well. She was tested for Covid 7 days ago and is positive. She does not wear home O2 . She does admit to loss of taste and smell. She does not have nausea or vomiting. No diarrhea. Does not have abdominal pain. She states that her doctor has had her on Decadron and azithromycin. She has been using her home nebulizer also she states it hurts when she has to breathe in. - Past Medical History (1) Hypertension Status: Chronic (2) Osteoarthritis Status: Chronic (3) Hypothyroidism Status: Chronic (4) Hyperlipidemia Status: Chronic (5) Asthma Status: Chronic Past Medical History - Allergies and Home Meds Allergies/Adverse Reactions: Allergies shellfish derived Allergy (Unknown, Verified 05/06/20 13:45) Unknown gabapentin Allergy (Verified 05/06/20 13:45) Other audible hallucinations prochlorperazine edisylate [From Compazine] Adverse Reaction (Intermediate, Verified 05/06/20 13:45) Other makes me crazy, want to climb the damian, anxious prochlorperazine maleate [From Compazine] Adverse Reaction (Intermediate, Verified 05/06/20 13:45) Other makes me crazy, want to climb the damian, anxious epinephrine [From Adrenalin] Adverse Reaction (Verified 05/06/20 13:45) Other Iodinated Contrast Media [CONTRASTS] Adverse Reaction (Verified 05/06/20 13:45) Other Sjdhsym-Ooa-Zei Reductase Inhibitor Adverse Reaction (Verified 05/06/20 13:45) Pain in joints Primary Care Physician: José Luis Boss DO [Primary Care Provider] - Prior records reviewed: Yes Past Medical History: - - Reviewed in problem list Surgical History: - - ?3, hysterectomy, eyelid surgery, cervical fusion. Lives: Alone Smoking Status: Never smoker Alcohol: None Drugs: None - Family History Maternal Family History: Reports: Heart Disease - Mother with CABG in 50s. Paternal Family History: Reports: - - Patient reported that she was adopted and does not know her paternal medical history. Review of Systems General: Reports: Chills, Fever, Malaise Eyes: Denies: Visual changes - bilaterally, Diplopia ENT: Reports: Rhinorrhea, Sore throat Cardiovascular: Reports: Chest pain. Denies: Palpitations, Heart racing Respiratory: Reports: Dyspnea, Cough Gastrointestinal: Denies: Abdominal pain, Nausea, Vomiting Genitourinary: Denies: Dysuria, Hematuria Musculoskeletal: Reports: Myalgias. Denies: Arthralgias Skin: Denies: Rash, Abscess, Abrasions Neurological: Reports: Headache. Denies: Parasthesia, Numbness Physical Exam Vital Signs/Narrative: Vital Signs Temp Pulse Resp BP Pulse Ox 05/06/20 14:04 95 05/06/20 13:48 97.5 F L 79 16 127/67 H 97 05/06/20 13:45 97.5 F L 79 18 127/67 H 97 Inital Vital Signs reviewed: Yes General: Well nourished, No Acute Distress Head: Normocephalic, Atraumatic Eyes: Perrl, EOMI ENT: Moist mucous membranes, Nasal congestion Cardiovascular: Regular rate, Regular rhythm Respiratory: No distress, CTA bilaterally Abdomen: Soft, Nontender, Nondistended Extremities: Nontender, No edema Skin: Normal color, No rash. Negative for: Cyanosis, Diaphoresis Neurological: Alert, Oriented x3 Psychological: Normal affect Diagnostic/Tx/Re-eval - Rhythm Strip Rhythm Strip: Sinus Rhythm Rate: 72 - EKG Initial EKG Interpretation: Sinus Rhythm, No Acute Injury Pattern - Medical Decision Making Patient presents with painful cough and pain with deep inspiration. She states she has had Covid?19 10th day. I do not believe she needs to be tested for Covid again. Her chest x-ray was negative. EKG is sinus rhythm at 73 bpm without any signs of ischemic change. She had a negative D-dimer. She was slightly dehydrated and given 500 cc of IV fluids. Patient does have a leukocytosis however she has been on steroids this week I think this explains why the white blood cell count is elevated given that her chest x-ray is normal. Opponent is negative. I offered to check her urine although she states she is asymptomatic of anything and she wishes to go home. She will continue outpatient therapy and follow-up with her PCP. She is given return precautions. Impression: 1. Covid?19 infection 2. Dehydration 3. Atypical chest pain ED Disposition - Plan for ED Patient: Disposition: Home or Assisted Living Instructions: Coronavirus Disease 2019 (COVID-19), Dehydration Referrals: José Luis Boss DO [Primary Care Provider] -
[2020-05-06 14:13] LABS: Absolute Lymphocyte Count 1.89 X10^3/uL (0.83-4.51); Absolute Neutrophil Count 11.3 X10^3/uL (2.0-7.7); Basophil# 0.03 X10^3/uL; Basophil% 0.2 % (0-1); Differential Indicated SCAN CRITERIA MET; Hematocrit 39.7 % (37-47); Hemoglobin 13.1 g/dL (12.0-15.0); Lymphocyte # 1.89 X10^3/ul (4.0); Lymphocyte % 12.5 % (19-41); Mean Corpuscular Volume 97.1 fL (81-99); Monocyte# 1.55 X10^3/uL; Monocyte% 10.3 % (0-10); NRBC Flagged by Analyzer 0 % (0-5); Neutrophil # 11.32 X10^3/uL (2.7-7.7); Neutrophil % 74.9 % (47-70); POSITIVE DIFFERENTIAL YES; Platelet Count 351 K/mm3 (150-450); RBC Distribution Width SD 43.3 fl (35.1-43.9); Red Blood Count 4.09 M/mm3 (4.2-5.4); White Blood Count 15.1 K/mm3 (4.4-11.0)
[2020-05-06 14:20] LABS: D-Dimer Quantitative (DVT/PE) 0.29 FEU/ug/m (0.27-0.49)
[2020-05-06 14:26] LABS: Anion Gap 5 (5-15); BUN 21 mg/dL (7-18); BUN/Creat Ratio 21.7 RATIO (10-20); Calcium,Total 8.9 mg/dL (8.5-10.1); Chloride 106 mmol/L (98-107); Creatinine, Serum 0.97 mg/dL (0.55-1.02); EST Glomerular Filtration Rate 62 mL/min (>60); Est Glom Filt Rate - Afr Amer 75 mL/min (>60); Estimated Creatinine Clearance 43.19 ml/min; Glucose 120 mg/dL (74-106); Potassium 4.1 mmol/L (3.5-5.1); Sodium Level 138 mmol/L (136-145)
[2020-05-06 14:32] LABS: Platelet Estimate ADEQUATE (ADEQ); Red Cell Morphology NORM C+C NORMAL (NORM C&C)
[2020-05-06 15:36] LABS: Bacteria 0 SEEN /hpf (None Seen); Mucous, Urine 0 SEEN /hpf (<or=2+); Red Blood Cells-Urine 0 SEEN /hpf (0-5)
[2020-05-06 15:39] LABS: Color, Urine Yellow (Yellow); Glucose, Dipstick Normal (Normal); Ketone-Dipstick Negative (Negative); Leukocyte Esterase-Dipstick 25 /ul (Negative); Nitrite-Dipstick Negative (Negative); Occult Blood-Urine Negative /ul (Negative); Protein-Dipstick Negative (Negative); Urine Bilirubin Dipstick Negative (Negative); Urine Clarity Clear (Clear); Urine Urobilinogen Normal (Normal)
[2020-05-06 15:50] LABS: Squamous Epithelial Cells - UA 0-5 SEEN /hpf (5-10)
[2020-05-06 15:51] LABS: White Blood Cells 0-5 SEEN /hpf (0-5)
[2020-05-06 16:00] VITALS: BP 109/55; PULSE 68; RESP 15; O2SAT 95
[2020-05-07 13:07] LABS: Pathologist Review Reviewed
== END 2020-05-06 17:20 | disposition home or self-care (01) ==
LOC: ED 16:03
PROVIDERS: Emergency Provider Student in an Organized Health Care Education/Training Program; PCP Student in an Organized Health Care Education/Training Program
DX: U07.1 COVID-19 (principal); E86.0 Dehydration; R07.89 Other chest pain; I10 Essential (primary) hypertension; M19.90 Unspecified osteoarthritis, unspecified site; E03.9 Hypothyroidism, unspecified; E78.5 Hyperlipidemia, unspecified; J45.909 Unspecified asthma, uncomplicated; Z82.49 Family history of ischemic heart disease and other diseases of the circulatory system; Z88.8 Allergy status to other drugs, medicaments and biological substances; Z90.710 Acquired absence of both cervix and uterus; Z79.899 Other long term (current) drug therapy
CPT/HCPCS: 71045; 80048; 81001; 84484; 85025; 85379; 87086; 87088; 93005; 96374; 96375; 99285; J7040; A4216; J3490

== ENCOUNTER 2020-05-12 16:21 | Emergency (ER) | payer MEDICARE, SELFPAY ==
[2020-05-12 16:22] VITALS: BP 86/48; PULSE 64; RESP 14; TEMP 36.8; O2SAT 95; BMI 32.0
[2020-05-12 16:26] VITALS: BP 102/59; PULSE 69; RESP 19; TEMP 36.8; O2SAT 97
[2020-05-12 16:28] VITALS: BP 102/59; PULSE 63; RESP 17; TEMP 36.8; O2SAT 94
--- NOTE | 2020-05-12 16:40 | EKG12_ITS ---
Test Reason : GENERAL ILLNESS Blood Pressure : / mmHG Vent. Rate : 059 BPM Atrial Rate : 059 BPM P-R Int : 122 ms QRS Dur : 080 ms QT Int : 438 ms P-R-T Axes : 041 071 075 degrees QTc Int : 433 ms Sinus bradycardia Nonspecific ST abnormality Abnormal ECG Confirmed by CHRYSTAL RACHEL, RADHA ([id number]), industrial editor VAMSI PINZON ([id number]) on 05/15/2020 8:40:19 AM Referred By: ANNE Confirmed By:RADHA JARRELL MD
--- NOTE | 2020-05-12 16:46 | RAD_ITS ---
STUDY: X-RAY CHEST REASON FOR EXAM: Female, 60 years old. INCREASED SOB TECHNIQUE: Frontal view of the chest COMPARISON: 06 May 2020 FINDINGS: There is ill-defined nodular focal left lower lung opacities. There is no demonstrated pleural abnormality. Normal size heart. Normal mediastinum and royer. Normal visualized pulmonary arteries. Normal visualized aortic arch and descending thoracic aorta. Normal visualized thoracic spine. Normal visualized ribs, clavicles, and shoulders. There is cervical ACDF. There is no demonstrated abnormality of the visualized soft tissue structures of the upper abdomen. RAD/Chest 1 View (Portable) IMPRESSION: Possible early left lung viral pneumonia. Electronically Signed: Elizabeth Tsang, at 17:59 EST Tel , Service support ,
[2020-05-12 17:00] LABS: Absolute Lymphocyte Count 2.69 X10^3/uL (0.83-4.51); Absolute Neutrophil Count 6.2 X10^3/uL (2.0-7.7); Basophil# 0.01 X10^3/uL; Basophil% 0.1 % (0-1); Eosinophil# 0.25 X10^3/uL; Eosinophils% 2.5 % (0-5); Hematocrit 37.7 % (37-47); Hemoglobin 12.6 g/dL (12.0-15.0); Lymphocyte # 2.69 X10^3/ul (4.0); Lymphocyte % 27.3 % (19-41); Mean Corp Hgb Conc 33.4 g/dL (32-36); Mean Corpuscular Hgb 32.7 pg (27.0-32.0); Mean Corpuscular Volume 97.9 fL (81-99); Mean Platelet Vol. 10.3 fl (6.2-12.0); Monocyte# 0.61 X10^3/uL; Monocyte% 6.2 % (0-10); NRBC Flagged by Analyzer 0 % (0-5); Neutrophil # 6.22 X10^3/uL (2.7-7.7); Neutrophil % 63.3 % (47-70); Platelet Count 268 K/mm3 (150-450); RBC Distribution Width CV 12.1 % (11.6-14.6); RBC Distribution Width SD 43.6 fl (35.1-43.9); Red Blood Count 3.85 M/mm3 (4.2-5.4); White Blood Count 9.8 K/mm3 (4.4-11.0)
[2020-05-12 17:17] LABS: Anion Gap 4 (5-15); BUN 30 mg/dL (7-18); BUN/Creat Ratio 29.7 RATIO (10-20); Calcium,Total 8.6 mg/dL (8.5-10.1); Chloride 105 mmol/L (98-107); Creatinine, Serum 1.01 mg/dL (0.55-1.02); EST Glomerular Filtration Rate 59 mL/min (>60); Est Glom Filt Rate - Afr Amer 71 mL/min (>60); Estimated Creatinine Clearance 41.48 ml/min; Glucose 98 mg/dL (74-106); Potassium 3.8 mmol/L (3.5-5.1); Sodium Level 137 mmol/L (136-145)
--- NOTE | 2020-05-12 17:21 | ED.DCSUM_ITS ---
History of Present Illness Chief Complaint: General Illness Informant: Patient Onset: Weeks Maximum Severity: Mild Narrative: Patient presents complaining cough and shortness of breath which she has had since around when she was diagnosed with coronavirus, she was given medications including what she recalls was dexamethasone, she indicates she had persistent cough and shortness of breath she has asthma and MS has been using her inhalers and nebulizer machine presents because of the persistent cough and shortness of breath. She is able to execute all of her daily activities she is eating and drinking bowel bladder habits are normal, she is followed through [facility] outpatient provider system including sounds like Covid surveillance she is not sure she has actually followed up with that system. No fever no other complaints, she is currently taking an erythromycin antibiotic and doxycycline Past Medical History - Allergies and Home Meds Allergies/Adverse Reactions: Allergies shellfish derived Allergy (Unknown, Verified 05/12/20 16:34) Unknown gabapentin Allergy (Verified 05/12/20 16:34) Other audible hallucinations prochlorperazine edisylate [From Compazine] Adverse Reaction (Intermediate, Verified 05/12/20 16:34) Other makes me crazy, want to climb the damian, anxious prochlorperazine maleate [From Compazine] Adverse Reaction (Intermediate, Verified 05/12/20 16:34) Other makes me crazy, want to climb the damian, anxious epinephrine [From Adrenalin] Adverse Reaction (Verified 05/12/20 16:34) Other Iodinated Contrast Media [CONTRASTS] Adverse Reaction (Verified 05/12/20 16:34) Other Ozfgxlj-Cfn-Mxw Reductase Inhibitor Adverse Reaction (Verified 05/12/20 16:34) Pain in joints Primary Care Physician: José Luis Boss DO [Primary Care Provider] - Past Medical History: - - MS asthma reportedly Covid positive around Surgical History: - - ?3, hysterectomy, eyelid surgery, cervical fusion. Smoking Status: Never smoker - Family History Maternal Family History: Reports: Heart Disease - Mother with CABG in 50s. Paternal Family History: Reports: - - Patient reported that she was adopted and does not know her paternal medical history. Review of Systems General: Denies: Chills, Fever, Sweats Eyes: Denies: Visual changes - bilaterally, Diplopia ENT: Denies: Rhinorrhea, Sore throat Cardiovascular: Denies: Chest pain, Palpitations Respiratory: Reports: Dyspnea, Cough. Denies: Dyspnea on exertion Gastrointestinal: Denies: Abdominal pain, Nausea, Vomiting, Diarrhea, Melena, Hematochezia Genitourinary: Denies: Dysuria, Hematuria, Frequency Musculoskeletal: Denies: Back pain, Extremity Pain Skin: Denies: Rash, Wounds Neurological: Denies: Headache, Weakness, Numbness Physical Exam Vital Signs/Narrative: Vital Signs Temp Pulse Resp BP Pulse Ox 05/12/20 16:28 98.3 F 63 17 102/59 L 94 05/12/20 16:26 98.3 F 69 19 H 102/59 L 97 05/12/20 16:22 98.3 F 64 14 86/48 L 95 General: Well nourished, Well developed, No Acute Distress Head: Normocephalic, Atraumatic Eyes: Perrl, EOMI ENT: Moist mucous membranes, No rhinorrhea Neck: Supple, Nontender Cardiovascular: Regular rate, Regular rhythm, No murmurs Respiratory: No distress, CTA bilaterally, Chest nontender Abdomen: Soft, Nontender, Nondistended, Normal bowel sounds Back: Nontender, Normal Inspection Extremities: Nontender, No edema Skin: Normal color, No rash Neurological: Alert, Oriented x3, Cranial nerves II-XII grossly intact, Normal Strength, Normal Sensation Psychological: Normal affect, Normal Mood Diagnostic/Tx/Re-eval - Medical Decision Making Patient has been ill for weeks diagnosed around Thanks[place] clinically she looks well her vital signs are all normal her pulse ox is 95% on room air resting comfortably breathing normally, given all the above ED screening evaluation chest x-ray and will reevaluate Patient's 1 view chest x-ray to my review shows mild cardiomegaly nothing else acute radiology reviewed the film concern for possible small viral pneumonia type infiltrate left base see those reports Patient's EKG shows a sinus rhythm rate 60 no acute injury pattern intervals within normal range nonspecific T wave abnormalities in V1 V2, all screening labs are generally unremarkable otherwise see all those reports Plan the above with the patient she remains hemodynamically stable here in the emergency department she has been ill for a week she is on therapy by her outpatient providers there is no signs of hypoxemia respiratory failure distress she is currently on antibiotics, she is comfortable with discharge home to follow-up with her providers take all her medications and return for change in symptoms we did discuss Covid instructions with her as well and she is aware of them Home stable Impression final COVID-19 infection ED Disposition - Plan for ED Patient: Diagnosis: COVID-19 Instructions: Coronavirus Disease 2019 (COVID-19): Overview, Coronavirus Disease 2019 (COVID-19): Caring for Yourself or Others Referrals: José Luis Boss, [Primary Care Provider] - Additional Instructions: Continue your outpatient management your doctors have outlined for you follow-up with them return for change in symptoms
[2020-05-12 17:47] VITALS: BP 96/42; PULSE 57; RESP 20; O2SAT 99
[2020-05-12 17:50] LABS: Bacteria 0 SEEN /hpf (None Seen); Mucous, Urine 0 SEEN /hpf (<or=2+); Red Blood Cells-Urine 0 SEEN /hpf (0-5)
[2020-05-12 17:51] LABS: Color, Urine Yellow (Yellow); Glucose, Dipstick Normal (Normal); Ketone-Dipstick 5 mg/dl (Negative); Leukocyte Esterase-Dipstick 100 /ul (Negative); Nitrite-Dipstick Negative (Negative); Occult Blood-Urine Negative /ul (Negative); Protein-Dipstick 30 mg/dl (Negative); Urine Bilirubin Dipstick Negative (Negative); Urine Clarity Clear (Clear); Urine Urobilinogen 4 mg/dl (Normal)
[2020-05-12 18:00] LABS: Squamous Epithelial Cells - UA 0-5 SEEN /hpf (5-10); White Blood Cells 0-5 SEEN /hpf (0-5)
[2020-05-12 18:44] VITALS: BP 110/57; PULSE 58; RESP 20; O2SAT 100
[2020-05-12 19:27] VITALS: BP 127/64; PULSE 60; RESP 24; O2SAT 98
== END 2020-05-12 19:44 | disposition home or self-care (01) ==
LOC: ED 16:53
PROVIDERS: Emergency Provider Emergency Medicine; PCP Student in an Organized Health Care Education/Training Program
DX: U07.1 COVID-19 (principal); J45.909 Unspecified asthma, uncomplicated; Z82.49 Family history of ischemic heart disease and other diseases of the circulatory system; Z88.8 Allergy status to other drugs, medicaments and biological substances; Z90.710 Acquired absence of both cervix and uterus
CPT/HCPCS: 71045; 80048; 81001; 84484; 85025; 93005; 99285; J7030; A4216

== ENCOUNTER → 2020-06-19 12:09 | Outpatient (CLI) | payer MEDICARE, SELFPAY ==
[2020-06-19 12:37] LABS: D-Dimer Quantitative (DVT/PE) 0.37 FEU/ug/m (0.27-0.49)
== END ==
PROVIDERS: PCP Student in an Organized Health Care Education/Training Program; Referring Provider Nurse Practitioner Family; Visit Provider Nurse Practitioner Family
DX: R07.89 Other chest pain (principal); R06.02 Shortness of breath; R05 Cough; Z20.822 Contact with and (suspected) exposure to COVID-19
CPT/HCPCS: 85379

== ENCOUNTER → 2020-10-11 14:00 | Outpatient (CLI) | payer MEDICARE, SELFPAY ==
--- NOTE | 2020-10-11 14:04 | ECHOD_ITS ---
Reason For Study: DYSPNEA/EVALUATE FOR PHTN Procedure This was a 2D Doppler, Color Flow transthoracic echocardiogram. Exam performed in department. Left Ventricle Normal LV size. The estimated ejection fraction is 75 %. No evidence for diastolic dysfunction. No regional wall motion abnormalities noted. Right Ventricle Normal RV size. Normal systolic function. Atria Normal left atrium. Normal right atrium. No doppler evidence for ASD. Mitral Valve There is no mitral valve stenosis. No mitral valve insufficiency. Tricuspid Valve There is no tricuspid stenosis. Unable to estimate RV systolic pressure due to inadequate jet, pulmonary artery pressure probably normal. Aortic Valve Trisinus/trileaflet aortic valve. Aortic sclerosis, no stenosis. No aortic valve insufficiency. Pulmonic Valve There is no pulmonic valvular stenosis. No pulmonic valve insufficiency. Great Vessels Normal aortic root. Pericardium/Pleural No pericardial effusion. MMode/2D Measurements & Calculations LVIDd: 3.5 cm IVSd: 1.0 cm Ao root diam: 3.0 cm LVIDs: 2.4 cm LVPWd: 1.0 cm RVDd: 3.0 cm FS: 32.8 % LAV(MOD-bp): 23.2 ml LVAd ap4: 18.1 cm2 LVAd ap2: 18.7 cm2 LAV(MOD-bp) Indexed: 13.3 ml/m2 LVLd ap4: 6.6 cm LVLd ap2: 6.6 cm LAV(MOD-sp2): 21.5 ml EDV(MOD-sp4): 39.9 ml EDV(MOD-sp2): 44.1 ml LAV(MOD-sp4): 24.7 ml EDV(sp4-el): 42.2 ml EDV(sp2-el): 45.1 ml LVAs ap4: 10.0 cm2 LVAs ap2: 10.1 cm2 LVLs ap4: 5.5 cm LVLs ap2: 5.2 cm ESV(MOD-sp4): 14.3 ml ESV(MOD-sp2): 16.9 ml ESV(sp4-el): 15.5 ml ESV(sp2-el): 16.8 ml EF(MOD-sp4): 64.3 % EF(MOD-sp2): 61.6 % EF(sp4-el): 63.3 % SV(MOD-sp4): 25.7 ml SV(MOD-sp2): 27.1 ml SV(sp4-el): 26.7 ml LA dimension(2D): 2.9 cm LA A4 area: 12.3 cm2 RA A4 area: 9.6 cm2 Time Measurements MV dec time: 0.30 sec Doppler Measurements & Calculations MV E max silver: 77.8 cm/sec Lat Peak E' Silver: 7.5 cm/sec Med Peak E' Silver: 6.6 cm/sec MV A max silver: 100.9 cm/sec E/E' lat: 10.3 E/E' med: 11.8 MV E/A: 0.77 Ao V2 max: 121.1 cm/sec LV V1 max: 131.7 cm/sec PA V2 max: 175.0 cm/sec Ao max P.9 mmHg LV V1 max P.9 mmHg TR max silver: 245.0 cm/sec TR max P.0 mmHg ECHO/Echo Complete Interpretation Summary The estimated ejection fraction is 75 %. No evidence for diastolic dysfunction. Ordering Physician: Tomás Trotter Referring Physician: EMILY BURGER Performed By: Kim Danielle RDCS
== END ==
LOC: CVS 14:02
PROVIDERS: PCP Student in an Organized Health Care Education/Training Program; Referring Provider Internal Medicine Pulmonary Disease; Visit Provider Internal Medicine Pulmonary Disease
DX: R06.00 Dyspnea, unspecified (principal); Z86.16 Personal history of COVID-19
CPT/HCPCS: 93306

== ENCOUNTER 2021-02-15 10:12 | Outpatient (RCR) | payer MEDICARE, MEDICAID, SELFPAY ==
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
--- NOTE | 2021-04-24 12:29 | HP.PTDCNRP_ITS ---
TANIA KEATING was seen in my office for initial evaluation on 02/15/21. The following Plan of Care was established for this patient: Initial Frequency: 2-3x /Week Initial Duration: 4-6 Weeks Patient/Client Instruction: Educate patient on: Condition, Plan of Care, Risk Factors For the Purpose of:: To improve self management Therapeutic Exercise to Include: Strength training, Body mechanics, Postural training, Flexibilty training, Neuromotor development, Scapular Strength/Stabilization For the Purpose of:: To decrease pain, To increase ROM, To improve muscle performance and motor function, To increase tolerance to activity/cond ition/position, To improve ability of physical actions for home/community/work/leisure Cryotherapy (ice pack, ice massage): Yes Thermo therapy (hot pack): Yes For the Purpose of:: To decrease pain, To improve nutrient delivery to tissue This patient was last seen in our office 02/15/21. Pertinent comments regarding their Physical therapy will appear below: This patient has not returned to Physical Therapy and is appropriate to return to MD for further follow-up as needed. At this point I will be discontinuing this patient from physical therapy. I would be happy to see this patient again in the future if found appropriate by the physician. Thank you! Meagan Medina, PT, Cert MDT Balance/Gait/Functional tests - Balance/Special Test Scores Oswestry Neck Score: 32
== END 2021-02-15 19:00 | disposition home or self-care (01) ==
LOC: PT 10:12
PROVIDERS: PCP Student in an Organized Health Care Education/Training Program; Referring Provider Nurse Practitioner Family; Visit Provider Nurse Practitioner Family
DX: M54.12 Radiculopathy, cervical region (principal); M96.1 Postlaminectomy syndrome, not elsewhere classified
CPT/HCPCS: 97162

== ENCOUNTER 2021-04-20 08:55 | Emergency (ER) | payer MEDICARE, MEDICAID, SELFPAY ==
[2021-04-20 08:56] VITALS: BP 163/86; PULSE 73; RESP 14; TEMP 36.6; O2SAT 99; BMI 33.1
--- NOTE | 2021-04-20 09:53 | CT_ITS ---
STUDY: CT ABDOMEN AND PELVIS WITHOUT CONTRAST REASON FOR EXAM: Female, 61 years old. Kidney Stone RADIATION DOSAGE (If Supplied By Facility): CTDIvol = ( 12.15 ) mGy, DLP = ( 546.31 ) mGycm TECHNIQUE: Transaxial images were obtained from the dome of the diaphragm to the symphysis pubis without oral contrast, and without intravenous contrast. Sagittal and coronal images were reconstructed. Individualized dose optimization techniques were used for this CT. COMPARISON: CT abdomen and pelvis without contrast 09/02/2017. Images of bilateral renal ultrasound 09/14/2017 not available, but report for that study was reviewed. FINDINGS: The visualized lung bases are unremarkable. The visualized portions of the heart are within normal limits. Borderline to mild hepatomegaly, the right lobe of the liver measuring 18.25 cm in height. The portal vein diameter is 11 mm. Normal gallbladder and extrahepatic biliary system. Normal spleen. Normal pancreas. Normal bilateral adrenal glands. Exophytic 12 x 9.5 x 10 mm subcapsular cortical cyst is again seen at the lateral lower pole. Very small calcifications in the upper pole calyces of left kidney could be nonobstructing stones. No hydronephrosis. Normal visualized stomach. Normal small intestine. There are multiple colonic diverticula consistent with diverticulosis. The appendix is visualized and appears normal. Normal abdominal aorta. Normal inferior vena cava. Normal retroperitoneum. Normal urinary bladder. Stable 2.0 x 1.4 x 0.7 cm moderately calcified structure of indeterminate etiology along the right dome of the bladder. There is absence of the uterus consistent with a prior hysterectomy. Incidental note of fatty replacement in much of the mid to lower right rectus abdominis muscle. There are stable degenerative changes of the visualized thoracolumbar spine, particularly involving the thoracic vertebral endplates and mid to lower lumbar facet articulations. CT/Abdomen/Pelvis without Cont IMPRESSION: 1. Possible punctate nonobstructing stones in the upper pole left kidney. The larger proximal ureteral calculus seen on previous exam is no longer present. No hydronephrosis. 2. Mildly increased size of subcapsular cortical cyst lateral lower pole of the right kidney, now measuring 12 mm. 3. Stable 2 cm oblong, moderately calcified structure of indeterminate etiology along the right dome of the otherwise normal-appearing urinary bladder. 4. Prior hysterectomy. 5. Borderline to mild hepatomegaly. 6. Stable degenerative changes of the thoracolumbar spine. Electronically Signed: Peter Brady MD at 11:08 EST , Service support ,
[2021-04-20 09:59] LABS: Bacteria 0 SEEN /hpf (None Seen); Mucous, Urine 0 SEEN /hpf (<or=2+); Red Blood Cells-Urine 0 SEEN /hpf (0-5)
--- NOTE | 2021-04-20 10:03 | EDS_ITS ---
HPI HPI - Female History of Present Illness Chief Complaint: Flank Pain Narrative Narrative: 60-year-old female presenting with right flank pain. She states is been having this intermittently for 3 days. Patient denies any injury. She does have a history of kidney stones in the past. She sees a urologist but has not associated with [facility]. She has intermittent nausea. She has not had significant vomiting. She denies dysuria or hematuria. No fever or chills. No diarrhea or constipation. PFSH PFSH Medical History Asthma COVID-19 long hauler Hypertension Kidney stones Multiple sclerosis Home Medications duloxetine 60 mg PO QHS 07/07/13 [History Last Taken 07/14/18 20:00] lisinopril 5 mg PO QHS 02/28/14 [History Last Taken 07/14/18 20:00] coenzyme Q10 [Co Q-10] 10 mg PO QHS 03/25/18 [History Last Taken 07/14/18 22:00] multivitamin [Daily Multiple] 1 ea PO QHS 03/25/18 [History Last Taken 07/14/18 22:00] cholecalciferol (vitamin D3) [Vitamin D3] 2,000 units PO QHS 07/15/18 [History Last Taken 07/14/18 22:00] cyclobenzaprine 5 mg PO QHS PRN 07/15/18 [History Last Taken 07/13/18 22:00] levothyroxine 150 mcg PO DAILY@0600 #30 tab 07/15/18 [Rx Last Taken Unknown] albuterol sulfate 2.5 mg INHALATION Q6HWA.RT 05/06/20 [History Last Taken Unknown] budesonide-formoterol 2 puff INHALATION BID 05/06/20 [History Last Taken Unknown] montelukast [Singulair] 10 mg PO DAILY 04/20/21 [History Last Taken Unknown] naproxen [Naprosyn] 500 mg PO BID #20 tab 04/20/21 [Rx Last Taken Unknown] ondansetron 4 mg PO Q8H PRN PRN #10 tab 04/20/21 [Rx Last Taken Unknown] Allergy/AdvReac Type Severity Reaction Status Date / Time shellfish derived Allergy Unknown Unknown Verified 04/20/21 08:58 gabapentin Allergy Other Verified 04/20/21 08:58 prochlorperazine edisylate AdvReac Intermediate Other Verified 04/20/21 08:58 [From Compazine] prochlorperazine maleate AdvReac Intermediate Other Verified 04/20/21 08:58 [From Compazine] epinephrine [From Adrenalin] AdvReac Other Verified 04/20/21 08:58 Iodinated Contrast Media AdvReac Other Verified 04/20/21 08:58 [CONTRASTS] Wkbqpzz-Taj-Sip Reductase AdvReac Pain in Verified 04/20/21 08:58 Inhibitor joints Surgical History History of History of hysterectomy History of neck surgery Social History Smoking Status: Never smoker ROS ROS ED Constitutional Constitutional ED: Denies chills or fever(s) ENT ENT ED: Denies rhinorrhea or sore throat Cardiovascular Cardiovascular: Denies chest pain or palpitations Respiratory/Chest Respiratory/Chest: Denies cough or dyspnea Gastrointestinal Gastrointestinal: Reports nausea; Denies abdominal pain, constipation, diarrhea or vomiting Genitourinary Genitourinary ED: Denies dysuria or hematuria Musculoskeletal Musculoskeletal: Reports other Details: Right flank pain Integumentary Denies Abrasions or rash Neurologic Neurologic: Denies headache(s) or paresthesias Psychiatric Psychiatric: Denies anxiety or depression EXAM Physical Exam Const Vital Signs: 04/20/21 08:56 Temperature 97.9 F Temperature Source Temporal Pulse Rate 73 Respiratory Rate 14 Blood Pressure 163/86 H Blood Pressure Mean 111 Pulse Ox 99 Oxygen Delivery Method Room Air Positive well nourished General Appearance ED: NAD; Negative for pallor HEENT Reports moist mucous membranes Negative for trauma Eyes PERRL and EOMs intact bilaterally Resp normal respiratory effort and clear to auscultation bilaterally Cardio regular rate and regular rhythm GI normal to inspection, nondistended, normoactive bowel sounds Back/Spine General Back: CVA tenderness right Neuro oriented x3 Sensorium / Orientation: alert Psych mental status grossly normal Skin General Skin Exam: Negative for jaundice or pallor MDM MDM MDM Narrative Medical decision making narrative: Patient presented with right flank pain. She does appear to have CVA tenderness. I did check a urinalysis and this is negative for blood or infection. Patient's BMP is normal with exception of a mildly low potassium at 3.4. CT of the abdomen pelvis without contrast is performed which does show a possible nonobstructing punctate stone in the left upper pole left kidney there is also a mild enlargement of a previously noted subcortical cyst on the right kidney. There does not appear to be any acute obstructing stones. Patient is counseled on this finding. She feels better after receiving morphine, Zofran, Toradol. I will discharge her home with Naprosyn and Zofran. It is possible that she could have passed a kidney stone given her history. She requested follow-up with urology that is local and I gave her Dr. Villalpando. Impression: 1. Right flank pain Lab Data Attestation: I reviewed the patient's lab results. Labs: Laboratory Results - last 24 hr 04/20/21 04/20/21 09:55 10:24 Sodium 138 Potassium 3.4 L Chloride 107 Carbon Dioxide 25.0 Anion Gap 6 BUN 8 Creatinine 1.02 Estim Creat Clear Calc 40.55 Est GFR (MDRD) Af Amer 70 Est GFR (MDRD) Non-Af 58 L BUN/Creatinine Ratio 7.8 L Glucose 112 H Calcium 8.5 Urine Color Yellow Urine Clarity Clear Urine pH 6.5 Ur Specific [place] 1.010 Urine Protein Negative Urine Glucose (UA) Normal Urine Ketones Negative Urine Occult Blood Negative Urine Nitrite Negative Urine Bilirubin Negative Urine Urobilinogen Normal Ur Leukocyte Esterase 100 H Urine RBC 0 SEEN Urine WBC 0-5 SEEN Ur Squamous Epith Cells 0-5 SEEN Urine Bacteria 0 SEEN Urine Mucus 0 SEEN Radiography Diagnostic Testing: Clinical Impression(s) from Imaging Studies Abdomen/Pelvis CT 04/20/21 09:53 IMPRESSION: 1. Possible punctate nonobstructing stones in the upper pole left kidney. The larger proximal ureteral calculus seen on previous exam is no longer present. No hydronephrosis. 2. Mildly increased size of subcapsular cortical cyst lateral lower pole of the right kidney, now measuring 12 mm. 3. Stable 2 cm oblong, moderately calcified structure of indeterminate etiology along the right dome of the otherwise normal-appearing urinary bladder. 4. Prior hysterectomy. 5. Borderline to mild hepatomegaly. 6. Stable degenerative changes of the thoracolumbar spine. Electronically Signed: Peter Brady MD at 11:08 EST , Service support , Discharge Plan Triage Chief Complaint: Flank Pain ED Provider: Kenneth Betancourt Dx/Rx/DC Orders Instructions: ED Flank Pain, Uncertain Cause Prescriptions: New naproxen [Naprosyn] 500 mg tablet 500 mg PO BID Qty: 20 RF: 0 ondansetron 4 mg tablet,disintegrating 4 mg PO Q8H PRN PRN (Reason: Nausea) Qty: 10 RF: 0 No Action duloxetine 60 MG capsule 60 mg PO QHS RF: 0 lisinopril 10 MG tablet 5 mg PO QHS RF: 0 multivitamin [Daily Multiple] 1 EACH tablet 1 ea PO QHS RF: 0 coenzyme Q10 [Co Q-10] 10 MG capsule 10 mg PO QHS RF: 0 cyclobenzaprine 5 MG tablet 5 mg PO QHS PRN (Reason: Pain) RF: 0 cholecalciferol (vitamin D3) [Vitamin D3] 2,000 UNIT capsule 2,000 units PO QHS RF: 0 levothyroxine 150 MCG tablet 150 mcg PO DAILY@0600 Qty: 30 RF: 0 albuterol sulfate 2.5 MG/3 ML solution for nebulization 2.5 mg INHALATION Q6HWA.RT RF: 0 budesonide-formoterol 10.2 GM HFA aerosol inhaler 2 puff INHALATION BID RF: 0 montelukast [Singulair] 10 mg Tablet 10 mg PO DAILY RF: 0 Primary Care Provider: José Luis Boss Referrals: Leelee Villalpando MD [STAFF PHYSICIAN] - As Needed José Luis Boss DO [Primary Care Provider] - Disposition Disposition: Home, Self Care
[2021-04-20 10:09] LABS: Color, Urine Yellow (Yellow); Glucose, Dipstick Normal (Normal); Ketone-Dipstick Negative (Negative); Leukocyte Esterase-Dipstick 100 /ul (Negative); Nitrite-Dipstick Negative (Negative); Occult Blood-Urine Negative /ul (Negative); Protein-Dipstick Negative (Negative); Urine Bilirubin Dipstick Negative (Negative); Urine Clarity Clear (Clear); Urine Urobilinogen Normal (Normal); Urine pH 6.5 (5.0 - 8.0)
[2021-04-20] MEDS: Ketorolac 15 MG/ML Vial IV (10:17)
[2021-04-20] MEDS: Morphine 4 MG/ML Syringe IV (10:17)
[2021-04-20] MEDS: Ondansetron 4 MG/2 ML Vial IV (10:17)
[2021-04-20 10:45] LABS: Anion Gap 6 (5-15); BUN 8 mg/dL (7-18); BUN/Creat Ratio 7.8 RATIO (10-20); Calcium,Total 8.5 mg/dL (8.5-10.1); Chloride 107 mmol/L (98-107); Creatinine, Serum 1.02 mg/dL (0.55-1.02); EST Glomerular Filtration Rate 58 mL/min (>60); Est Glom Filt Rate - Afr Amer 70 mL/min (>60); Estimated Creatinine Clearance 40.55 ml/min; Glucose 112 mg/dL (74-106); Potassium 3.4 mmol/L (3.5-5.1); Sodium Level 138 mmol/L (136-145)
[2021-04-20 10:46] LABS: Squamous Epithelial Cells - UA 0-5 SEEN /hpf (5-10); White Blood Cells 0-5 SEEN /hpf (0-5)
[2021-04-20 11:31] VITALS: PULSE 82; RESP 16; O2SAT 98
== END 2021-04-20 11:33 | disposition home or self-care (01) ==
PROVIDERS: Emergency Provider Student in an Organized Health Care Education/Training Program; PCP Student in an Organized Health Care Education/Training Program
DX: R10.9 Unspecified abdominal pain (principal); R11.0 Nausea; R16.0 Hepatomegaly, not elsewhere classified; J45.909 Unspecified asthma, uncomplicated; G35 Multiple sclerosis; I10 Essential (primary) hypertension; Z90.710 Acquired absence of both cervix and uterus; Z86.16 Personal history of COVID-19; Z87.442 Personal history of urinary calculi; Z79.1 Long term (current) use of non-steroidal anti-inflammatories (NSAID)
CPT/HCPCS: 74176; 80048; 81001; 96374; 96375; 99283; A4216; J2405

== ENCOUNTER 2021-06-10 14:36 | Outpatient (CLI) | payer MEDICARE, MEDICAID, SELFPAY ==
--- NOTE | 2021-06-10 14:46 | CT_ITS ---
STUDY: CT ABDOMEN WITHOUT CONTRAST REASON FOR EXAM: Female, 61 years old. STONES,RENAL CYST RADIATION DOSAGE (If Supplied By Facility): CTDIvol = ( 12.67 ) mGy, DLP = ( 373.31 ) mGycm TECHNIQUE: Transaxial images were obtained without intravenous contrast, and oral contrast. Sagittal and coronal images were reconstructed. Individualized dose optimization techniques were used for this CT. COMPARISON: 04/20/2021 FINDINGS: Lung bases clear. Mild diffuse hepatic steatosis. Unremarkable spleen, pancreas, adrenals, and gallbladder on this unenhanced study. Stable 1.2 cm hyperdense lesion arising from the anterior cortex of the left kidney. A stable 1.1 cm exophytic lesion arising from the lower pole of the right kidney. 2 punctate nonobstructing stones in the upper pole of the left kidney. No additional radiopaque stone in the bilateral kidneys and proximal to mid ureters. No free air or free fluid. Normal visualized appendix. Bowel loops nonobstructed. No abdominal adenopathy. Minimal vascular constipation. No abdominal aortic aneurysm. Multilevel thoracolumbar spondylosis. CT/Abdomen without IV Contrast IMPRESSION: 2 punctate nonobstructing stones in the upper pole of the left kidney. Stable exophytic lesions arising from the bilateral kidneys. Electronically Signed: Wayne Jaimes MD at 19:56 EST Tel , Service support ,
== END 2021-06-10 23:59 | disposition home or self-care (01) ==
PROVIDERS: PCP Student in an Organized Health Care Education/Training Program; Referring Provider Urology; Visit Provider Urology
DX: N20.0 Calculus of kidney (principal); N28.1 Cyst of kidney, acquired
CPT/HCPCS: 74150

== ENCOUNTER 2021-06-19 13:10 | Outpatient (CLI) | payer MEDICARE, MEDICAID, SELFPAY ==
--- NOTE | 2021-06-18 | FLU_PTH ---
PATIENT: TANIA KEATING LOC: [facility] U#:[id number] AGE/SX: 61/F ROOM: RE06/19/[address]: Dr. Matt Flanagan MD : 1960 BED: DIS: 06/19/2021 SPEC #: [id number] RECD: 06/19/21 11:59 STATUS: BECKA REMilla #: [id number] CHARLES: 06/18/21 00:[address]: Matt Flanagan DEPT: CYTOLOGY RECD BY: Jaz Goncalves ENTERED: 06/19/21 13:40 SP TYPE: Fluid OTHR DR: Dr. José Luis Boss, DO Tissues: A - Thyroid gland, NOS B - Thyroid gland, NOS Procedures: Special Stain Group II Surgery Specimen Level IV Cytospin Fluid Cytology Other HEADER OPERATION: Fine needle aspiration, left thyroid PRE-OP DIAGNOSIS: Abnormal thyroid ultrasound TISSUE SUBMITTED: A ? FNA left thyroid nodule fluid, B ? FNA left thyroid nodule x6 slides DIAGNOSIS CYTOLOGY A. Left thyroid nodule fluid, FNA (cytospin and cell block): A few benign follicular cells noted. B. Left thyroid nodule, FNA (smears): Consistent with benign follicular/colloid nodule. Adequate for evaluation. See comment. ANNE:sadi 06/20/2021 COMMENT B. The smears also show drying artifact. Correlation with clinical, radiologic findings and appropriate follow up are necessary. CYTOLOGY STUDY Slides are reviewed. CYTOLOGY GROSS A - Received is 25 ml of light cherry fluid labeled with the patient's name and and designated per the requisition as left thyroid. Submitted for cytology preparation including cell block. B - Received are six smears labeled with the patient's name and designated per the requisition as left thyroid. Submitted for staining. / sadi 06/19/2021 TC:5 CPT: 82553, 38735, 91309
== END 2021-06-19 23:59 | disposition short-term general hospital (02) ==
LOC: LABSPEC 13:12
PROVIDERS: PCP Student in an Organized Health Care Education/Training Program; Visit Provider Surgery
DX: E04.1 Nontoxic single thyroid nodule (principal)
CPT/HCPCS: 88108; 88161; 88305; 88313

== ENCOUNTER 2021-07-16 16:25 | Emergency (ER) | payer MEDICARE, MEDICAID, SELFPAY ==
[2021-07-16 16:26] VITALS: BP 161/87; PULSE 73; RESP 14; TEMP 35.5; O2SAT 98; BMI 32.4
--- NOTE | 2021-07-16 17:20 | CT_ITS ---
EXAM: CT ABDOMEN AND PELVIS WITHOUT INTRAVENOUS CONTRAST : 1960 CLINICAL INDICATION: LLQ pain TECHNIQUE: Helically acquired images were obtained of the abdomen and pelvis without intravenous contrast. This CT exam was performed using one or more of the following dose reduction techniques: automated exposure control, adjustment of the mA and/or kV according to patient size, and/or use of iterative reconstruction technique. This report was created using [employer] report generation technology. COMPARISON: June 10, 2021 FINDINGS: LOWER THORAX: Unremarkable. Lung bases are clear. No cardiomegaly. No significant pericardial effusion. ABDOMEN: LIVER: Unremarkable. Homogeneous. GALLBLADDER AND BILE DUCTS: Unremarkable. No calcified gallstones. No gallbladder distention or wall edema. No intra- or extrahepatic biliary ductal dilation. PANCREAS: Unremarkable. No focal cystic mass. SPLEEN: Unremarkable. Normal size without focal cystic or solid mass. ADRENALS: Unremarkable. No nodules. KIDNEYS AND URETERS: Punctate stones again noted within the upper pole of the left kidney. Stable small renal lesions noted bilaterally which may represent simple and complex cysts. Normal renal size and position. No hydronephrosis. STOMACH AND BOWEL: Colon diverticulosis noted without evidence of acute diverticulitis. No stomach or bowel distention. PELVIS: APPENDIX: Appendix is visualised and normal in appearance. BLADDER: Unremarkable. REPRODUCTIVE: Unremarkable as visualized. No mass. ABDOMEN and PELVIS: INTRAPERITONEAL SPACE: Unremarkable. No ascites or other fluid collection. No free air. BONES/JOINTS: Unremarkable. No suspicious lytic or blastic abnormality. SOFT TISSUES: Unremarkable. No discrete abdominal or pelvic wall hernia. VASCULATURE: Unremarkable. Abdominal aorta is non-dilated. LYMPH NODES: Unremarkable. No enlarged lymph nodes. CT/Abdomen/Pelvis without Cont IMPRESSION: 1. No acute abnormality. 2. Diverticulosis coli. 3. Stable left nephrolithiasis. Individualized dose optimization techniques were used for this CT. at 1808 Reported and signed by: King Ramirez MD Electronically Signed: King Ramirez MD at 18:07 EST Reading Location ID and State: [facility] / [place] Tel , Service support ,
[2021-07-16] MEDS: Ondansetron 4 MG/2 ML Vial IV (17:30)
[2021-07-16] MEDS: Ketorolac 15 MG/ML Vial IV (17:30)
[2021-07-16] MEDS: 0.9% Normal Saline 1,000 ML 999 ML IV (17:30)
--- NOTE | 2021-07-16 17:36 | ED.VIS.GI ---
HPI HPI - GI History of Present Illness Chief Complaint: Abd Pain Informant: patient Abdominal Pain/Flank Pain Onset: Days (2) Context: Gradual Onset Timing: Continuous Quality: Aching Location: LLQ Current Severity: Moderate Maximum Severity: Moderate Worsened by: Nothing Relieved by: Nothing Nausea/Vomiting/Emesis GI Symptom: Positive for Nausea; Negative for Vomiting Diarrhea/Melena/Hematochezia GI Symptom: Negative for Diarrhea, Melena and Hematochezia Narrative Narrative: Patient with left lower quadrant pain worsening over the last couple days, nausea no fevers no bleeding. Has had diverticular low cysts in the past on colonoscopy. No prior abdominal surgeries except for a remote hysterectomy. Urinating like usual, she does have some issues getting her bladder emptied and is following up with urologist tomorrow. [facility] Medical History Asthma COVID-19 long hauler Hypertension Kidney stones Multiple sclerosis Home Medications duloxetine 60 mg PO QHS 07/07/13 [History Last Taken 07/14/18 20:00] lisinopril 5 mg PO QHS 02/28/14 [History Last Taken 07/14/18 20:00] coenzyme Q10 [Co Q-10] 10 mg PO QHS 03/25/18 [History Last Taken 07/14/18 22:00] multivitamin [Daily Multiple] 1 ea PO QHS 03/25/18 [History Last Taken 07/14/18 22:00] cholecalciferol (vitamin D3) [Vitamin D3] 2,000 units PO QHS 07/15/18 [History Last Taken 07/14/18 22:00] cyclobenzaprine 5 mg PO QHS PRN 07/15/18 [History Last Taken 07/13/18 22:00] levothyroxine 150 mcg PO DAILY@0600 #30 tab 07/15/18 [Rx Last Taken Unknown] albuterol sulfate 2.5 mg INHALATION Q6HWA.RT 05/06/20 [History Last Taken Unknown] budesonide-formoterol 2 puff INHALATION BID 05/06/20 [History Last Taken Unknown] montelukast [Singulair] 10 mg PO DAILY 04/20/21 [History Last Taken Unknown] naproxen [Naprosyn] 500 mg PO BID #20 tab 04/20/21 [Rx Last Taken Unknown] ondansetron 4 mg PO Q8H PRN PRN #10 tab 04/20/21 [Rx Last Taken Unknown] Allergy/AdvReac Type Severity Reaction Status Date / Time shellfish derived Allergy Unknown Unknown Verified 07/16/21 16:26 gabapentin Allergy Other Verified 07/16/21 16:26 prochlorperazine edisylate AdvReac Intermediate Other Verified 07/16/21 16:26 [From Compazine] prochlorperazine maleate AdvReac Intermediate Other Verified 07/16/21 16:26 [From Compazine] epinephrine [From Adrenalin] AdvReac Other Verified 07/16/21 16:26 Iodinated Contrast Media AdvReac Other Verified 07/16/21 16:26 [CONTRASTS] Byezuyd-KDM-BnI Reductase AdvReac Pain in Verified 07/16/21 16:26 Inhibitor joints [Zstddzp-Qmk-Vwo Reductase Inhibitor] Surgical History History of History of hysterectomy History of neck surgery Social History Smoking Status: Never smoker ROS ROS ED Constitutional Constitutional ED: Denies chills or fever(s) Eyes Eyes: Denies change in vision or diplopia ENT ENT ED: Denies rhinorrhea or sore throat Cardiovascular Cardiovascular: Denies chest pain or palpitations Respiratory/Chest Respiratory/Chest: Denies cough or dyspnea Gastrointestinal Gastrointestinal: Reports as per HPI, abdominal pain and nausea; Denies diarrhea or vomiting Genitourinary Genitourinary ED: Denies dysuria or hematuria Musculoskeletal Musculoskeletal: Denies back pain or neck pain Integumentary Denies abscess or rash Neurologic Neurologic: Denies headache(s), paresthesias or weakness Psychiatric Psychiatric: Denies anxiety or suicidal thoughts EXAM Physical Exam Const Vital Signs: 07/16/21 16:26 07/16/21 19:12 Temperature 96 F L Temperature Source Temporal Pulse Rate 73 Respiratory Rate 14 16 Blood Pressure 161/87 H Blood Pressure Mean 111 Pulse Ox 98 Oxygen Delivery Method Room Air Positive well nourished and well developed General Appearance ED: well developed and NAD HEENT Reports moist mucous membranes normocephalic and atraumatic Eyes PERRL and EOMs intact bilaterally Neck full ROM and supple Resp normal respiratory effort and clear to auscultation bilaterally Cardio regular rate, regular rhythm and no murmurs GI non-distended GI Narrative: Moderate tenderness to palpation left lower quadrant laterally, no guarding or rebound tenderness. Otherwise benign abdomen. Auscultation: normoactive bowel sounds Palpation: soft Back/Spine no CVA tenderness General Back: other FROM Extremity normal to inspection General Extremety ED: Negative for edema, pulses abnormal or tenderness General Extremity: Negative for edema or pulses abnormal Neuro oriented x3, CN's II-XII intact bilaterally and no sensory deficits noted Sensorium / Orientation: awake and alert Motor Exam: strength 5/5 throughout Skin no rashes or lesions noted and no wounds MDM MDM MDM Narrative Medical decision making narrative: Labs are within normal limits for the most part, white blood count at the high end of normal limits, no leftward shift. CT of the abdomen/pelvis was performed and there is diverticulosis without any evidence for diverticulitis, since patient has had this for 2 or 3 days, I do not think empiric antibiotics for diverticulitis is warranted. I obtained a urinalysis since we did not have an obvious reason for pain, it shows no pyuria but there were calcium oxalate crystals. She states this feels a little different than kidney stone pain, but that is why she has an appointment with her urologist tomorrow. She was given Zofran and Toradol she feels better. She states she was having a lot of bloating and gurgling, will give her a Bentyl to see if that helps prior to discharge but at this time I think she can follow-up with her regular doctor if she continues to have abdominal pain after her urology appointment tomorrow. She is comfortable with that plan. Lab Data Attestation: I reviewed the patient's lab results. Labs: Laboratory Results - last 24 hr 07/16/21 07/16/21 07/16/21 17:31 17:31 19:30 WBC 10.9 RBC 3.79 L Hgb 12.6 Hct 37.3 MCV 98.4 MCH 33.2 H MCHC 33.8 RDW Std Deviation 45.3 H RDW Coeff of Lea 12.6 Plt Count 319 MPV 10.7 Immature Gran % (Auto) 0.300 Neut % (Auto) 45.1 L Lymph % (Auto) 42.6 H Holt % (Auto) 8.4 Eos % (Auto) 3.1 Baso % (Auto) 0.5 Absolute Neuts (auto) 4.9 Absolute Lymphs (auto) 4.65 H Nucleated RBC % 0 Sodium 140 Potassium 3.5 Chloride 107 Carbon Dioxide 26.0 Anion Gap 7 BUN 14 Creatinine 1.09 H Estim Creat Clear Calc 37.95 Est GFR (MDRD) Af Amer 65 Est GFR (MDRD) Non-Af 54 L BUN/Creatinine Ratio 12.8 Glucose 111 H Calcium 9.0 Urine Color Yellow Urine Clarity Clear Urine pH 6.0 Ur Specific [place] 1.010 Urine Protein Negative Urine Glucose (UA) Normal Urine Ketones Negative Urine Occult Blood Negative Urine Nitrite Negative Urine Bilirubin Negative Urine Urobilinogen Normal Ur Leukocyte Esterase 100 H Urine RBC 0 SEEN Urine WBC 0 SEEN Ur Squamous Epith Cells 0-5 SEEN Ur Transition Epith Cell 0-5 SEEN Calcium Oxalate Crystal RARE Urine Bacteria 0 SEEN Urine Mucus 0 SEEN Radiography Diagnostic Testing: Clinical Impression(s) from Imaging Studies Abdomen/Pelvis CT 07/16/21 17:20 IMPRESSION: 1. No acute abnormality. 2. Diverticulosis coli. 3. Stable left nephrolithiasis. Individualized dose optimization techniques were used for this CT. at 1808 Reported and signed by: King Ramirez MD Electronically Signed: King Ramirez MD at 18:07 EST Reading Location ID and State: [address] [place] [address] Tel , Service support , Discharge Plan Triage Chief Complaint: Abd Pain ED Provider: Jake Dahl Dx/Rx/DC Orders Clinical Impression: Abdominal pain, LLQ Instructions: Abdominal Pain Prescriptions: No Action duloxetine 60 MG capsule 60 mg PO QHS RF: 0 lisinopril 10 MG tablet 5 mg PO QHS RF: 0 multivitamin [Daily Multiple] 1 EACH tablet 1 ea PO QHS RF: 0 coenzyme Q10 [Co Q-10] 10 MG capsule 10 mg PO QHS RF: 0 cyclobenzaprine 5 MG tablet 5 mg PO QHS PRN (Reason: Pain) RF: 0 cholecalciferol (vitamin D3) [Vitamin D3] 2,000 UNIT capsule 2,000 units PO QHS RF: 0 levothyroxine 150 MCG tablet 150 mcg PO DAILY@0600 Qty: 30 RF: 0 albuterol sulfate 2.5 MG/3 ML solution for nebulization 2.5 mg INHALATION Q6HWA.RT RF: 0 budesonide-formoterol 10.2 GM HFA aerosol inhaler 2 puff INHALATION BID RF: 0 montelukast [Singulair] 10 mg Tablet 10 mg PO DAILY RF: 0 naproxen [Naprosyn] 500 mg tablet 500 mg PO BID Qty: 20 RF: 0 ondansetron 4 mg tablet,disintegrating 4 mg PO Q8H PRN PRN (Reason: Nausea) Qty: 10 RF: 0 Primary Care Provider: José Luis Boss Referrals: José Luis Boss DO [Primary Care Provider] - 3-5 Days if not improving Disposition Disposition: Home, Self Care
[2021-07-16 17:39] LABS: Absolute Lymphocyte Count 4.65 X10^3/uL (0.83-4.51); Absolute Neutrophil Count 4.9 X10^3/uL (2.0-7.7); Basophil# 0.05 X10^3/uL; Basophil% 0.5 % (0-1); Eosinophil# 0.34 X10^3/uL; Eosinophils% 3.1 % (0-5); Hematocrit 37.3 % (37-47); Hemoglobin 12.6 g/dL (12.0-15.0); Lymphocyte # 4.65 X10^3/ul (0.83-4.51); Lymphocyte % 42.6 % (19-41); Mean Corp Hgb Conc 33.8 g/dL (32-36); Mean Corpuscular Hgb 33.2 pg (27.0-32.0); Mean Corpuscular Volume 98.4 fL (81-99); Mean Platelet Vol. 10.7 fl (6.2-12.0); Monocyte# 0.92 X10^3/uL; Monocyte% 8.4 % (0-10); NRBC Flagged by Analyzer 0 % (0-5); Neutrophil # 4.93 X10^3/uL (2.7-7.7); Neutrophil % 45.1 % (47-70); Platelet Count 319 K/mm3 (150-450); RBC Distribution Width CV 12.6 % (11.6-14.6); RBC Distribution Width SD 45.3 fl (35.1-43.9); Red Blood Count 3.79 M/mm3 (4.2-5.4); White Blood Count 10.9 K/mm3 (4.4-11.0)
[2021-07-16 18:00] LABS: Anion Gap 7 (5-15); BUN 14 mg/dL (7-18); BUN/Creat Ratio 12.8 RATIO (10-20); Chloride 107 mmol/L (98-107); Creatinine, Serum 1.09 mg/dL (0.55-1.02); EST Glomerular Filtration Rate 54 mL/min (>60); Est Glom Filt Rate - Afr Amer 65 mL/min (>60); Estimated Creatinine Clearance 37.95 ml/min; Glucose 111 mg/dL (74-106); Potassium 3.5 mmol/L (3.5-5.1); Sodium Level 140 mmol/L (136-145)
[2021-07-16 19:12] VITALS: RESP 16
[2021-07-16 19:37] LABS: Bacteria 0 SEEN /hpf (None Seen); Mucous, Urine 0 SEEN /hpf (<or=2+); Red Blood Cells-Urine 0 SEEN /hpf (0-5); White Blood Cells 0 SEEN /hpf (0-5)
[2021-07-16 19:39] LABS: Color, Urine Yellow (Yellow); Glucose, Dipstick Normal (Normal); Ketone-Dipstick Negative (Negative); Leukocyte Esterase-Dipstick 100 /ul (Negative); Nitrite-Dipstick Negative (Negative); Occult Blood-Urine Negative /ul (Negative); Protein-Dipstick Negative (Negative); Urine Bilirubin Dipstick Negative (Negative); Urine Clarity Clear (Clear); Urine Urobilinogen Normal (Normal)
[2021-07-16 20:14] LABS: Calcium Oxalate Crystals Ur RARE /hpf (<or=2+); Squamous Epithelial Cells - UA 0-5 SEEN /hpf (5-10); Transitional Epithelial - Ur 0-5 SEEN /hpf (0-5)
[2021-07-16 20:46] VITALS: BP 158/87; PULSE 71; RESP 16; O2SAT 93
[2021-07-16] MEDS: Dicyclomine 10 MG Capsule 20 MG PO (20:49)
== END 2021-07-16 20:52 | disposition home or self-care (01) ==
PROVIDERS: Emergency Provider Emergency Medicine; PCP Student in an Organized Health Care Education/Training Program; Visit Provider Emergency Medicine
DX: R11.2 Nausea with vomiting, unspecified (principal); G35 Multiple sclerosis; K57.90 Diverticulosis of intestine, part unspecified, without perforation or abscess without bleeding; R10.32 Left lower quadrant pain; I10 Essential (primary) hypertension; J45.909 Unspecified asthma, uncomplicated; Z86.16 Personal history of COVID-19
CPT/HCPCS: 74176; 80048; 81001; 85025; 96361; 96374; 96375; 99283; J7030; A4216; J2405

== ENCOUNTER → 2021-10-31 | Outpatient (CLI) | payer MEDICARE, MEDICAID, SELFPAY ==
--- NOTE | 2021-10-31 12:51 | CDU_ITS ---
Reason For Study: Bruit Rt. Velocities/BP Lt. Velocities/BP Prox CCA 89.1/17.3 cm/sec. Prox CCA 108.4/18.8 cm/sec. Mid CCA 78.6/18.6 cm/sec. Mid CCA 87.6/16.3 cm/sec. Dist CCA 70.8/16 cm/sec. Dist CCA 64.2/15.1 cm/sec. Prox ICA 100.8/27.8 cm/sec. Prox ICA 56.4/14.6 cm/sec. Mid ICA 89.1/26.5 cm/sec. Mid ICA 99.2/26.1 cm/sec. Dist ICA 77/23.1 cm/sec. Dist ICA 93.7/24.3 cm/sec. Rt. ICA/CCA = 1.28. Lt. ICA/CCA = 1.13. Prox ECA 98.2/9.5 cm/sec. Prox ECA 75.3/10.2 cm/sec. Rt. Vert. 34.3/10.7 cm/sec. Lt. Vert. 48.5/13.5 cm/sec. Right Extracranial There is intimal thickening but no significant atherosclerotic plaque noted in the right common carotid artery. There is intimal thickening but no significant atherosclerotic plaque noted in the right internal carotid artery. The right internal carotid artery is very tortuous. There is intimal thickening but no significant atherosclerotic plaque noted in the right external carotid artery. Antegrade flow is noted in the right vertebral artery. Left Extracranial There is homogeneous, smooth atherosclerotic plaque noted in the left common carotid artery. There is homogeneous, smooth atherosclerotic plaque noted in the left internal carotid artery. The left internal carotid artery is very tortuous. There is intimal thickening but no significant atherosclerotic plaque noted in the left external carotid artery. Antegrade flow is noted in the left vertebral artery. Procedure Carotid Duplex 54236. This is a Carotid Duplex examination using B-mode, color flow and specral Doppler. Exam performed in department. VL/Carotid Duplex Ultrasound Interpretation Summary Mild (<50%) stenosis right extracranial internal carotid. Mild (<50%) stenosis left extracranial internal carotid. Flow within the vertebral arteries is antegrade bilaterally. Ordering Physician: Harrison Mcginnis Referring Physician: José Luis Boss Performed By: Gita Millan RVT
== END | disposition home or self-care (01) ==
LOC: CVS 12:50
PROVIDERS: PCP Student in an Organized Health Care Education/Training Program; Referring Provider Internal Medicine Cardiovascular Disease; Visit Provider Internal Medicine Cardiovascular Disease
DX: R09.89 Other specified symptoms and signs involving the circulatory and respiratory systems (principal)
CPT/HCPCS: 93880

== ENCOUNTER → 2021-11-08 | Outpatient (CLI) | payer MEDICARE, MEDICAID, SELFPAY ==
--- NOTE | 2021-11-08 06:55 | ECHOD_ITS ---
Reason For Study: Chest Pain Procedure This was a 2D Doppler, Color Flow transthoracic echocardiogram. Exam performed in department. Left Ventricle Normal LV size. Left ventricular systolic function is normal. The estimated ejection fraction is 60 %. Stage 1 diastolic dysfunction. No regional wall motion abnormalities noted. Right Ventricle Normal RV size. Normal systolic function. Atria Normal left atrium. Normal right atrium. Mitral Valve Normal mitral valve. Tricuspid Valve Normal tricuspid valve. Aortic Valve Normal aortic valve. Trisinus/trileaflet aortic valve. Pulmonic Valve Normal pulmonic valve. Great Vessels Normal aortic root. The pulmonary artery is normal size. Normal inferior vena cava. Pericardium/Pleural No pericardial effusion. MMode/2D Measurements & Calculations LVIDd: 4.0 cm IVSd: 1.1 cm Ao root diam: 3.0 cm LVIDs: 2.7 cm LVPWd: 1.0 cm LA dimension: 3.4 cm RVDd: 2.5 cm FS: 33.6 % LAV(MOD-bp): 32.0 ml LA A4 area: 11.9 cm2 RA A4 area: 12.7 cm2 LAV(MOD-bp) Indexed: 18.4 ml/m2 LAV(MOD-sp2): 34.9 ml LAV(MOD-sp4): 26.0 ml Time Measurements MV dec time: 0.33 sec Doppler Measurements & Calculations MV E max silver: 86.4 cm/sec Lat Peak E' Silver: 5.9 cm/sec Med Peak E' Silver: 6.9 cm/sec MV A max silver: 120.4 cm/sec E/E' lat: 14.6 E/E' med: 12.5 MV E/A: 0.72 MV V2 max: 122.3 cm/sec MV P1/2t max silver: 100.2 cm/sec Ao V2 max: 114.0 cm/sec MV max P.0 mmHg MV P1/2t: 77.0 msec Ao max P.2 mmHg MV V2 mean: 63.3 cm/sec MV dec slope: 380.9 cm/sec2 MV mean P.9 mmHg MVA(P1/2t): 2.9 cm2 MV V2 VTI: 33.2 cm LV V1 max: 91.0 cm/sec PA V2 max: 127.1 cm/sec LV V1 max P.3 mmHg ECHO/Echo Complete Interpretation Summary Normal LV size. Left ventricular systolic function is normal. The estimated ejection fraction is 60 %. Stage 1 diastolic dysfunction. Structurally normal valves. Ordering Physician: Harrison Mcginnis Referring Physician: José Luis Boss Performed By: Eugenio Ball RCS
--- NOTE | 2021-11-08 16:10 | STRESSREP ---
Stress Test Report Allergic myocardial perfusion stress test. 61-year-old lady with a history of hypertension hyperlipidemia and a right bundle branch block. Resting KG demonstrates normal sinus rhythm with a rate of 65 bpm normal intervals are noted. 0.4 mg of regadenoson was infused per usual protocol followed by rapid intravenous saline flush injection. Continuous EKG monitoring was performed. The maximum heart rate attained was 81 bpm which was 51% of max impact at heart rate the maximum workload was 1 metabolic equivalent. At rest there were no ST or T wave changes noted to suggest abnormal flow reserve and at peak infusion nonspecific ST changes were noted which did not meet the criteria for ischemia. No clinical angina was noted. The peak blood pressure was 138/84 mmHg. Myocardial perfusion protocol. 14.1 mCi of technetium 99m sestamibi was injected at rest. 0.4 mg of regadenoson was infused per usual protocol. At peak infusion 44.1 mCi of technetium 99m sestamibi was injected stress images were obtained stress and rest images were reconstructed and compared in the short axis vertical long and horizontal long axis. Gated images were also obtained. Perfusion SPECT analysis: Review of the stress images demonstrate normal uptake of tracer noted in all areas of the myocardium. The resting images similarly demonstrate normal uptake of tracer noted in all areas of the myocardium. No areas of reversibility are noted to suggest ischemia and no previous infarct is noted. Gated SPECT analysis: The gated ejection fraction is noted to be 83%. Conclusion: Normal pharmacologic myocardial perfusion stress test. Preserved ejection fraction.
== END | disposition home or self-care (01) ==
LOC: CVS 06:54
PROVIDERS: PCP Student in an Organized Health Care Education/Training Program; Referring Provider Internal Medicine Cardiovascular Disease; Visit Provider Internal Medicine Cardiovascular Disease
DX: R07.9 Chest pain, unspecified (principal)
CPT/HCPCS: 78452; 93017; 93306; A9500; A4216; J2785

== ENCOUNTER → 2021-11-19 | Outpatient (CLI) | payer MEDICARE, MEDICAID, SELFPAY ==
--- NOTE | 2021-11-19 10:33 | RAD_ITS ---
STUDY: X-RAY - PELVIS AND LEFT HIP REASON FOR EXAM: Female, 61 years old. Low back pain; left hip pain TECHNIQUE: 3 views of the pelvis and hip. COMPARISON: Comparison is made with prior study dated 11/25/2012. FINDINGS: There is a non-specific bowel gas pattern. There are multiple calcified phleboliths. Normal bilateral iliac wings, sacroiliac joints and visualized sacrum. Normal bilateral superior and inferior pubic rami. Normal pubic symphysis. Normal bilateral ischial tuberosities. Normal visualized femoral head. Normal acetabulum. There is mild articular joint space narrowing of the hip. RAD/HIP, UNI W/ Pelvis 2-3 Views IMPRESSION: Degenerative changes of the left hip joint. Electronically Signed: Wojciech Burks MD at 13:10 EDT ,
[2021-11-19 12:38] LABS: Erythrocyte Sedimentation Rate 6 mm/hr (0-30)
[2021-11-19 13:28] LABS: CPK Total, Creatine Kinase 309 U/L (26-192); Rheumatoid Factor < 10.0 IU/mL (<15)
[2021-11-21 14:03] LABS: ANTINUCLEAR ANTIBODIES DIRECT Negative (Negative)
[2021-11-24 17:07] LABS: Aldolase 5.2 U/L (3.3-10.3); Vitamin B1, Thiamine 113.7 nmol/L (66.5-200.0)
[2021-11-24 19:39] LABS: Myoglobin, Serum 71 ng/mL (25-58)
== END | disposition home or self-care (01) ==
PROVIDERS: PCP Student in an Organized Health Care Education/Training Program; Referring Provider Psychiatry & Neurology Neurology; Visit Provider Psychiatry & Neurology Neurology
DX: M54.9 Dorsalgia, unspecified (principal); G89.29 Other chronic pain; M25.552 Pain in left hip; M79.7 Fibromyalgia; R53.83 Other fatigue
CPT/HCPCS: 36415; 73502; 82085; 82550; 82746; 83874; 84425; 84443; 85652; 86038; 86225; 86235; 86431

== ENCOUNTER 2021-12-05 06:17 | Day surgery (SDC) | payer MEDICARE, MEDICAID, SELFPAY ==
[2021-12-05] VITALS (8 sets, daily range): BP systolic 121–144; BP diastolic 65–82; PULSE 56–72; RESP 16–18; TEMP 36.2–36.5; O2SAT 95–100; BMI 32.3
--- NOTE | 2021-12-05 06:38 | HP.PCM_ITS ---
History and Physical Date of Admission: 12/05/21 PIERRE KEATING, is a 61 F who presents to the office today for Evaluation of abdominal pain. Tata established with this clinic 08.22.21 following presentation to [facility] ED 07.16.21. She presented to the ED with LLQ abdominal pain for several days. History of diverticular cysts seen on previous colonoscopies. Remote hysterectomy, no other abdominal surgeries. No obvious signs of pain found and she was discharged home with dicyclomine. She was seen previously in the ED for right flank pain and was sent to urology for suspected kidney stones causing pain. She is having difficulty with abdominal cramps with increased severity in the LLQ, subsequently she will have a formed stool with continued cramping, then she uses mechanical maneuvers with abdominal pressure utilizing cat pose and this promotes a large watery bowel movement. This happens about once a month, however cramping and bloating happen infrequently. Admits to a poor diet with some of the symptoms following a ?poor diet?. She has eliminated peanuts and nuts. COVID infection with long-hauler syndrome and she is continuing to follow with neurology, cardiology and rheumatology. Reports she had neck surgery several years ago with three discs replaced and is experiencing severe pain, this is being followed by her surgeon. There is a family history of colon cancer, siblings with suspicious polyps and personal history of a suspicious polyp. Brunch ? eggs, whole wheat waffles with butter. Dinner ? salad, pasta, chicken. Drinks sweet tea (diluted) and some pop and water. Colonoscopy, screening about three years prior. Tata reports diverticulitis present, no polyps. CT abd/pel 07.16.21 found colon diverticulosis without acute diverticulitis. punctate stones within upper pole of left kidney and stable small renal lesions. ROS Const Constitutional: No anorexia, fatigue, fever(s), weight change or sleep problems Eyes Eyes: No change in vision ENT ENT: No abnormal hearing, difficulty swallowing, mouth lesions, tongue swelling or throat swelling Resp Respiratory: No cough or shortness of breath Cardio Cardiology: No chest pain at rest, chest pain with exertion, shortness of breath or dyspnea on exertion Gastro GI: No difficulty swallowing Genitourinary-Female: No difficulty urinating or burning urination Musc Musculoskeletal: No joint pain, joint swelling, muscle weakness or decreased muscle mass Skin Skin: No hair loss in leg, yellowing of the eye, itchy eyes, rash, skin ulcer or skin swelling Neuro Neurology: No abnormal hearing, abnormal movements, confusion, unsteady gait/balance or memory loss Psych Psychiatric: No anxiety, No confusion and No memory loss Endo Endocrine: No fatigue or weight change Aller/Imm Allergy/Immunologic: No itchy eyes, throat swelling or tongue swelling George/Lymp Hematologic/Lymphatic: No easy bleeding, easy bruising or enlarged lymph nodes Exam Const General: cooperative and comfortable Nutritional Appearance: average body habitus and well nourished [facility] Head: normal to inspection Ears: hearing grossly normal bilaterally Nose: external nose normal Face and sinus: normal facial exam Mouth: oral mucosae normal Throat: posterior oropharynx normal Eyes General: appearance normal, both eyes and all related structures Neck Neck: normal visual inspection Chest Chest palpation & inspection: normal inspection of the chest and normal palpation of entire chest wall Resp Effort & Inspection: normal respiratory effort Auscultation: Bilateral: Clear to Auscultation Cardio Palpation: normal PMI Rate: regular rate Rhythm: regular rhythm GI Inspection: normal to inspection Auscultation: normal bowel sounds Percussion: normal to percussion Palpation: no hepatosplenomegaly Skin General: no rashes or lesions noted Neuro General: patient alert Extrem General: normal to inspection Psych Affect: normal affect Quality Reporting Tobacco Screening ([facility] 138) Smoking Status: Never smoker Assessment and Plan Assessment and Plan (1) Diverticulosis: ?Status:?Acute ?Plan - Dr. Potter Friend, DO: She could be having sigmoid colitis associated with diverticulosis.? This is called scad.? She will need to undergo colonoscopy for evaluation of the lower GI tract to see if there is inflammation surrounding the sigmoid colon area but not exactly affecting the diverticuli.? Treatment for that would be mesalamine based therapy plus a probiotic and ciprofloxacin with Flagyl.? We will also look for signs of ischemic disease such as ischemic colitis less likely inflammatory bowel disease. (2) Abdominal pain: ?Status:?Acute ?Plan - Dr. Potter Friend, DO: Her abdominal pain is likely multifactorial.? I think she has episodes of constipation which leads to her symptoms.? However there is also the possibility of peptic ulcer disease or celiac disease affecting upper GI tract.? Therefore she should undergo an upper endoscopy to evaluate upper GI tract for upper GI pathology. I have re-examined the patient. There are no clinical changes since date of exam.
[2021-12-05] MEDS: Lactated Ringers 1,000 ML 15 ML IV (06:53)
--- NOTE | 2021-12-05 07:30 | COLBX_PTH ---
PATIENT: TANIA KEATING LOC: [facility] U#:[id number] AGE/SX: 61/F ROOM: RE12/05/[address]: Dr. Tariq Florez DO : 1960 BED: DIS: 12/05/2021 SPEC #: [id number] RECD: 12/05/21 12:47 STATUS: BECKA KELL #: [id number] CHARLES: 12/05/21 07:[address]: Tariq Florez DEPT: SURGICAL PATHOLOGY RECD BY: Dorinda Mas ENTERED: 12/05/21 13:32 SP TYPE: COLON BX OTHR DR: Dr. José Luis Boss DO Tissues: A - Gastric mucous membrane B - Gastric mucous membrane C - Esophagus, NOS D - Transverse colon E - COLON BIOPSY Procedures: Special Stain Group II Surgery Specimen Level IV Alcian Blue/PAS (control) HEADER OPERATION: Colonoscopy, EGD ([facility] [place]), biopsy PRE-OP DIAGNOSIS: Diverticulosis, abdominal pain TISSUE SUBMITTED: A ? Gastric ulcer biopsy, B ? Gastric body biopsy, C ? Distal esophagus biopsy, D ? Transverse polyp biopsy, E ? Hepatic flexure polyps (2) MICROSCOPIC DIAGNOSIS A. Gastric ulcer, biopsy: Fragments of gastric mucosa with focal superficial erosion, congestion and chronic inflammation. B. Gastric body, biopsy: Mild chronic gastritis. See microscopic description and comment. C. Distal esophagus, biopsy: Fragments of gastroesophageal mucosa with moderate to marked chronic inflammation and mild acute inflammation. Intestinal metaplasia (goblet cell metaplasia) not identified. See comment. D. Transverse colon polyp, biopsy: Fragments of tubular adenoma. E. Hepatic flexure polyps (2), biopsy: Tubular adenoma. Fragments of hyperplastic polyp. SJ:sadi 12/06/2021 COMMENT B. The results of immunohistochemistry for Helicobacter pylori will be reported separately ([id number]). C. Alcian blue/PAS stain with matched control is used in the evaluation of the specimen. MICROSCOPIC DESCRIPTION Slides are reviewed. B. The specimen shows fragments of gastric mucosa with chronic inflammatory cell infiltrates in the lamina propria consisting of lymphocytes and plasma cells, consistent with mild chronic gastritis. GROSS DESCRIPTION A - Received in fixative is one container labeled with the patient's name and designated gastric ulcer biopsy. The specimen consists of two irregular fragments of light cherry soft tissue that in aggregate measure 0.6 x 0.2 x 0.1 cm. The specimen is totally submitted in one cassette. B - Received in fixative is one container labeled with the patient's name and designated gastric body biopsy. The specimen consists of multiple irregular fragments of light cherry soft tissue that in aggregate measure 0.5 x 0.5 x 0.1 cm. The specimen is totally submitted in one cassette. C - Received in fixative is one container labeled with the patient's name and designated distal esophagus. The specimen consists of two irregular fragments of light cherry soft tissue that in aggregate measure 0.5 x 0.5 x 0.1 cm. The specimen is totally submitted in one cassette. D - Received in fixative is one container labeled with the patient's name and designated transverse polyp biopsy. The specimen consists of two irregular fragments of light cherry soft tissue that in aggregate measure 0.4 x 0.1 x 0.1 cm. The specimen is totally submitted in one cassette. E - Received in fixative is one container labeled with the patient's name and designated hepatic flexure polyp. The specimen consists of multiple irregular fragments of light cherry soft tissue that in aggregate measure 1.5 x 0.5 x 0.3 cm. The specimen is totally submitted in one cassette. / SJ:rg 12/05/2021 TC:1 CPT: 92121 x5, 76096
--- NOTE | 2021-12-05 07:30 | IMM_PTH ---
PATIENT: TANIA KEATING LOC: [facility] U#:[id number] AGE/SX: 61/F ROOM: RE12/05/[address]: Dr. Tariq Florez DO : 1960 BED: DIS: 12/05/2021 SPEC #: [id number] RECD: 12/05/21 13:53 STATUS: BECKA REQ #: [id number] CHARLES: 12/05/21 07:[address]: Tariq Florez DEPT: IMMUNOHISTOCHEMISTRY RECD BY: Lilian Sharif ENTERED: 12/05/21 13:53 SP TYPE: IMMUNO OTHR DR: Dr. José Luis Boss DO Tissues: B - Stomach, NOS Procedures: H Pylori (initial) PHYSICIAN & INSTITUTION [place] [id number] SPECIMEN INFORMATION: Tissue Source: B ? Gastric body biopsy Clinical Info: Diverticulosis, abdominal pain Specimen Number: [id number] CPT code: 08547 METHODOLOGY: Deparaffinized sections of prefer/formalin-fixed tissue or PAP/DQ stained slides are incubated with monoclonal/polyclonal antibodies/oligonucleotide probes. Localization is made via biotin free immunoperoxidase method. Appropriate controls are performed and reacted as expected. Results on target cell population are indicated in the following table: RESULTS: ANTIBODY / CLONE RESULT Block B H Pylori (polyclonal) negative These tests were developed and their performance characteristics determined by [facility]. They may not have been cleared or approved by the U.S. Food and Drug Administration. The FDA has determined that such clearance or approval is not necessary. The above immunohistochemical/dualISH markers are ordered and reviewed by the Pathologist. INTERPRETATION: B. Gastric body, biopsy: Negative for Helicobacter pylori organisms. SJ:sadi 12/06/2021
--- NOTE | 2021-12-05 08:15 | OP.EGD_ITS ---
Patient Name: Tata Ordaz Procedure Date: 12/05/2021 7:20 AM Date of : 1960 Age: 61 Procedure: Upper GI endoscopy Indications: Epigastric abdominal pain Providers: Tariq Florez DO Referring MD: José Luis Boss Medicines: Monitored Anesthesia Care Patient Profile: This is a 61 year old female. Refer to note in patient chart for documentation of history and physical. Patient has symptoms of acute epigastric abdominal pain. Complications: No immediate complications. Procedure: Pre-Anesthesia Assessment: - Prior to the procedure, a History and Physical was performed, and patient medications and allergies were reviewed. The risks and benefits of the procedure and the sedation options and risks were discussed with the patient. All questions were answered and informed consent was obtained. Patient identification and proposed procedure were verified by the physician in the pre-procedure area. Mental Status Examination: alert and oriented. Airway Examination: normal oropharyngeal airway and neck mobility. Respiratory Examination: clear to auscultation. CV Examination: normal. Prophylactic Antibiotics: The patient does not require prophylactic antibiotics. Prior Anticoagulants: The patient has taken no previous anticoagulant or antiplatelet agents. ASA Grade Assessment: II - A patient with mild systemic disease. After reviewing the risks and benefits, the patient was deemed in satisfactory condition to undergo the procedure. The anesthesia plan was to use moderate sedation / analgesia (conscious sedation). Immediately prior to administration of medications, the patient was re-assessed for adequacy to receive sedatives. The heart rate, respiratory rate, oxygen saturations, blood pressure, adequacy of pulmonary ventilation, and response to care were monitored throughout the procedure. The physical status of the patient was re-assessed after the procedure. After obtaining informed consent, the endoscope was passed under direct vision. Throughout the procedure, the patient's blood pressure, pulse, and oxygen saturations were monitored continuously. The colonoscope was introduced through the mouth, and advanced to the second part of duodenum. The upper GI endoscopy was accomplished without difficulty. The patient tolerated the procedure well. Scope In: 7:32:14 AM Scope Out: 7:38:32 AM Total Procedure Duration Time 0 hours 6 minutes 18 seconds Findings: LA Grade A (one or more mucosal breaks less than 5 mm, not extending between tops of 2 mucosal folds) esophagitis with no bleeding was found 36 to 38 cm from the incisors. Biopsies were taken with a cold forceps for histology. Verification of patient identification for the specimen was done. Estimated blood loss was minimal. One non-bleeding cratered gastric ulcer with no stigmata of bleeding was found in the gastric antrum. The lesion was 6 mm in largest dimension. Biopsies were taken with a cold forceps for histology. Verification of patient identification for the specimen was done. Estimated blood loss was minimal. Patchy mild inflammation characterized by erosions and erythema was found in the gastric body. Biopsies were taken with a cold forceps for histology. Verification of patient identification for the specimen was done. Estimated blood loss was minimal. The second portion of the duodenum was normal. Impression: - LA Grade A reflux esophagitis. Biopsied. - Non-bleeding gastric ulcer with no stigmata of bleeding. Biopsied. - Gastritis. Biopsied. - Normal second portion of the duodenum. Recommendation: - Discharge patient to home. - Resume previous diet. - Continue present medications. - Await pathology results. - Use Protonix (pantoprazole) 40 mg PO BID for 8 weeks. - Use sucralfate tablets 1 gram PO BID for 2 weeks. Procedure Code(s): --- Professional --- 70059, Esophagogastroduodenoscopy, flexible, transoral; with biopsy, single or multiple CPT copyright 2017 [employer]. All rights reserved. The codes documented in this report are preliminary and upon lead quality technician review may be revised to meet current compliance requirements. Tariq Florez DO 12/05/2021 8:14:37 AM This report has been signed electronically. Number of Addenda: 1 Note Initiated On: 12/05/2021 7:20 AM Addendum Number: 1 Addendum Date: 03/11/2022 6:00:28 AM MAC was used as sedation for this procedure. Tariq Florez DO 03/11/2022 6:00:33 AM This report has been signed electronically.
--- NOTE | 2021-12-05 08:15 | OP.CCLET_ITS ---
03/11/2022 José Luis Boss [address] [place] [address] Re : Upper GI endoscopy procedure for Tata Ordaz Dear Dr. Boss This procedure was performed on November. My impressions and recommendations are as follows: Impressions : - LA Grade A reflux esophagitis. Biopsied. - Non-bleeding gastric ulcer with no stigmata of bleeding. Biopsied. - Gastritis. Biopsied. - Normal second portion of the duodenum. Recommendations : - Discharge patient to home. - Resume previous diet. - Continue present medications. - Await pathology results. - Use Protonix (pantoprazole) 40 mg PO BID for 8 weeks. - Use sucralfate tablets 1 gram PO BID for 2 weeks. My findings are described in the full procedure note, which is enclosed. If I can be of further assistance, please feel free to contact me at . Sincerely, Tariq Friend, 12/05/2021 8:14:37 AM This report has been signed electronically.
--- NOTE | 2021-12-05 09:07 | OP.COLON_ITS ---
Patient Name: Tata Ordaz Procedure Date: 12/05/2021 7:38 AM Date of : 1960 Age: 61 Procedure: Colonoscopy Indications: Abdominal pain in the left lower quadrant, Abnormal CT of the GI tract Providers: Tariq Florez DO Referring MD: José Luis Boss Medicines: Monitored Anesthesia Care Patient Profile: This is a 61 year old female. Refer to note in patient chart for documentation of history and physical. Patient has symptoms of acute epigastric abdominal pain. Last Colonoscopy: 5 years ago. Complications: No immediate complications. Procedure: Pre-Anesthesia Assessment: - Prior to the procedure, a History and Physical was performed, and patient medications and allergies were reviewed. The risks and benefits of the procedure and the sedation options and risks were discussed with the patient. All questions were answered and informed consent was obtained. Patient identification and proposed procedure were verified by the physician in the pre-procedure area. Mental Status Examination: alert and oriented. Airway Examination: normal oropharyngeal airway and neck mobility. Respiratory Examination: clear to auscultation. CV Examination: normal. Prophylactic Antibiotics: The patient does not require prophylactic antibiotics. Prior Anticoagulants: The patient has taken no previous anticoagulant or antiplatelet agents. ASA Grade Assessment: II - A patient with mild systemic disease. After reviewing the risks and benefits, the patient was deemed in satisfactory condition to undergo the procedure. The anesthesia plan was to use moderate sedation / analgesia (conscious sedation). Immediately prior to administration of medications, the patient was re-assessed for adequacy to receive sedatives. The heart rate, respiratory rate, oxygen saturations, blood pressure, adequacy of pulmonary ventilation, and response to care were monitored throughout the procedure. The physical status of the patient was re-assessed after the procedure. After I obtained informed consent, the scope was passed under direct vision. Throughout the procedure, the patient's blood pressure, pulse, and oxygen saturations were monitored continuously. The colonoscope was introduced through the anus and advanced to the terminal ileum. The colonoscopy was performed without difficulty. The patient tolerated the procedure well. The quality of the bowel preparation was good. Scope In: 7:43:12 AM Scope Withdrawal Time 0 hours 7 minutes 50 seconds Scope Out: 8:04:44 AM Total Procedure Duration Time 0 hours 21 minutes 32 seconds Findings: The perianal and digital rectal examinations were normal. Three sessile polyps were found in the transverse colon and hepatic flexure. The polyps were 1 to 2 mm in size. These polyps were removed with a hot snare. Resection and retrieval were complete. Verification of patient identification for the specimen was done. Estimated blood loss was minimal. Multiple small and large-mouthed diverticula were found in the recto-sigmoid colon, sigmoid colon and descending colon. There was no evidence of diverticular bleeding. Impression: - Three 1 to 2 mm polyps in the transverse colon and at the hepatic flexure, removed with a hot snare. Resected and retrieved. - Moderate diverticulosis in the recto-sigmoid colon, in the sigmoid colon and in the descending colon. There was no evidence of diverticular bleeding. Recommendation: - Discharge patient to home. - Resume previous diet. - Continue present medications. - Await pathology results. - Repeat colonoscopy in 3 years for surveillance. Procedure Code(s): --- Professional --- 81488, Colonoscopy, flexible; with removal of tumor(s), polyp(s), or other lesion(s) by snare technique CPT copyright 2017 [employer]. All rights reserved. The codes documented in this report are preliminary and upon inbound sales representative review may be revised to meet current compliance requirements. Tariq Florez DO 12/05/2021 9:06:44 AM This report has been signed electronically. Number of Addenda: 1 Note Initiated On: 12/05/2021 7:38 AM Addendum Number: 1 Addendum Date: 03/11/2022 6:00:42 AM MAC was used as sedation for this procedure. Tariq Florez DO 03/11/2022 6:00:48 AM This report has been signed electronically.
--- NOTE | 2021-12-05 09:08 | OP.CCLET_ITS ---
03/11/2022 José Luis Boss [address] [place] [address] Re : Colonoscopy procedure for Tata Ordaz Dear Dr. Boss This procedure was performed on November. My impressions and recommendations are as follows: Impressions : - Three 1 to 2 mm polyps in the transverse colon and at the hepatic flexure, removed with a hot snare. Resected and retrieved. - Moderate diverticulosis in the recto-sigmoid colon, in the sigmoid colon and in the descending colon. There was no evidence of diverticular bleeding. Recommendations : - Discharge patient to home. - Resume previous diet. - Continue present medications. - Await pathology results. - Repeat colonoscopy in 3 years for surveillance. My findings are described in the full procedure note, which is enclosed. If I can be of further assistance, please feel free to contact me at . Sincerely, Tariq Friend, 12/05/2021 9:06:44 AM This report has been signed electronically.
== END 2021-12-05 09:15 | disposition home or self-care (01) ==
LOC: EN 06:20 → AC 06:20
PROVIDERS: PCP Student in an Organized Health Care Education/Training Program; Referring Provider Student in an Organized Health Care Education/Training Program; Visit Provider Internal Medicine Gastroenterology
PROC: 0DJD8ZZ Inspection of Lower Intestinal Tract, Via Natural or Artificial Opening Endoscopic (ICD-10-PCS; CPT 45378; principal; 2021-12-05 07:25)
DX: K29.50 Unspecified chronic gastritis without bleeding (principal); K57.30 Diverticulosis of large intestine without perforation or abscess without bleeding; K25.9 Gastric ulcer, unspecified as acute or chronic, without hemorrhage or perforation; K21.00 Gastro-esophageal reflux disease with esophagitis, without bleeding; D12.3 Benign neoplasm of transverse colon; Z80.0 Family history of malignant neoplasm of digestive organs
CPT/HCPCS: 45385; 43239; 88305; 88313; 88342; J7120; J2405

== ENCOUNTER → 2022-01-06 | Outpatient (CLI) | payer MEDICARE, MEDICAID, SELFPAY ==
--- NOTE | 2022-01-06 15:41 | RAD_ITS ---
EXAM: XR LUMBOSACRAL SPINE, 2 OR 3 VIEWS CLINICAL INDICATION: low back pain TECHNIQUE: Frontal and lateral views of the lumbar spine and sacrum. This report was created using [employer] report [employer] technology. COMPARISON: None. FINDINGS: VERTEBRAE: Spondylitic changes with marginal osteophytes in the upper lumbar spine. Slight anterolisthesis of L4 on L5 associated with bilateral facet arthropathy. Moderate bilateral vertebral facet arthropathy in the lower lumbar spine. Preserved vertebral body height. No fracture. No spondylolisthesis. Preservation of the normal lumbar lordosis. DISC SPACES: No acute findings. Disc spaces are maintained. GASTROINTESTINAL TRACT: Unremarkable as visualized. Included bowel gas pattern is non-obstructive. RAD/Lumbar Spine 2 or 3 Views IMPRESSION: 1. Spondylitic changes with marginal osteophytes in the upper lumbar spine. 2. Slight anterolisthesis of L4 on L5 associated with bilateral facet arthropathy. 3. Moderate bilateral vertebral facet arthropathy in the lower lumbar spine. 4. No acute abnormality. Electronically Signed: Camilo Randle MD at 6:09 EDT ,
== END | disposition home or self-care (01) ==
PROVIDERS: PCP Student in an Organized Health Care Education/Training Program; Referring Provider Psychiatry & Neurology Neurology; Visit Provider Psychiatry & Neurology Neurology
DX: M54.50 Low back pain, unspecified (principal)
CPT/HCPCS: 72100

== ENCOUNTER → 2022-11-04 | Outpatient (CLI) | payer MEDICARE, MEDICAID, SELFPAY ==
[2022-11-04 14:26] LABS: Erythrocyte Sedimentation Rate 20 mm/hr (0-30)
[2022-11-06 13:08] LABS: Anti-Centromere B Ab <0.2 AI (0.0-0.9); Anti-Chromatin <0.2 AI (0.0-0.9); Anti-Jo <0.2 AI (0.0-0.9); Anti-Scleroderma-70 AB <0.2 AI (0.0-0.9); Anti-dsDNA Ab <1 IU/mL (0-9); RNP Ab <0.2 AI (0.0-0.9); SJOGREN'S Anti-SS-A test < 0.2 AI (0.0-0.9); SJOGREN'S Anti-SS-B test < 0.2 AI (0.0-0.9); Smith Ab <0.2 AI (0.0-0.9)
[2022-11-06 16:09] LABS: Endomysial Antibody IgA Negative (Negative); Immunoglobulin A 339 mg/dL (87-352); t-Transglutaminase IgA <2 U/mL (0-3)
== END | disposition home or self-care (01) ==
PROVIDERS: PCP Student in an Organized Health Care Education/Training Program; Referring Provider Nurse Practitioner Adult Health; Visit Provider Nurse Practitioner Adult Health
DX: K57.90 Diverticulosis of intestine, part unspecified, without perforation or abscess without bleeding (principal); R10.32 Left lower quadrant pain
CPT/HCPCS: 36415; 82784; 83516; 85652; 86140; 86225; 86235; 86255

== ENCOUNTER → 2022-11-10 | Outpatient (CLI) | payer MEDICARE, MEDICAID, SELFPAY ==
[2022-11-19 16:09] LABS: Calprotectin, Stool 44 ug/g (0-120)
== END | disposition home or self-care (01) ==
LOC: LABSPEC 16:14
PROVIDERS: PCP Student in an Organized Health Care Education/Training Program; Referring Provider Nurse Practitioner Adult Health; Visit Provider Nurse Practitioner Adult Health
DX: K57.90 Diverticulosis of intestine, part unspecified, without perforation or abscess without bleeding (principal); K58.9 Irritable bowel syndrome, unspecified
CPT/HCPCS: 83630; 83993

== ENCOUNTER → 2022-12-24 | Outpatient (CLI) | payer MEDICARE, MEDICAID, SELFPAY ==
--- NOTE | 2022-12-24 16:48 | STRESSREP ---
Stress Test Report Pharmacologic myocardial perfusion stress test. 62-year-old lady with a history of chest pain Resting EKG demonstrates sinus rhythm with a rate of 64 bpm. Resting blood pressure is in the 8/70 mmHg. 0.4 mg of regadenoson was infused per usual protocol followed by rapid intravenous saline flush injection. Continuous EKG monitoring was performed. The maximum heart rate was 84 bpm which was 53% of max impacted heart rate the maximum workload was 1 metabolic equivalent. At rest there were no ST or T wave changes noted to suggest ischemia and at peak infusion nonspecific ST changes were noted which did not meet the criteria for ischemia. No clinical angina is noted. The final blood pressure was 128/78 mmHg. Myocardial perfusion protocol. 14.2 mCi of technetium 99m sestamibi was injected at rest. 0.4 mg of regadenoson was infused per usual protocol. At peak infusion 43.5 mCi of technetium 99m sestamibi was injected stress images were obtained stress and rest images were reconstructed and compared in the short axis vertical long and horizontal long axis. Gated images were also obtained. Perfusion SPECT analysis: Review of the stress images demonstrate normal uptake of tracer noted in all areas of the myocardium. The resting images similar demonstrated normal uptake of tracer noted in all areas of the myocardium. No areas of reversibility are noted to suggest ischemia and no previous infarct is noted. Gated SPECT analysis: The gated ejection fraction is 83%. Conclusion: Normal pharmacologic myocardial perfusion stress test. Preserved ejection fraction.
== END | disposition home or self-care (01) ==
LOC: CVS 06:20
PROVIDERS: PCP Student in an Organized Health Care Education/Training Program; Referring Provider Nurse Practitioner Family; Visit Provider Nurse Practitioner Family
DX: R07.9 Chest pain, unspecified (principal); R06.02 Shortness of breath
CPT/HCPCS: 78452; 93017; A9500; A4216; J2785

== ENCOUNTER 2023-02-24 11:30 | Outpatient (RCR) | payer MEDICARE, MEDICAID, SELFPAY ==
--- NOTE | 2022-12-29 13:28 | HP.PTEVAL ---
Patient's Visit Information Visit Information Visit Information: TANIA KEATING is a 62 year old F referred to Physical Therapy by Dr. Steven Taylor DPM with a diagnosis of Left Achilles Repair August 2022. Date of Evaluation: 12/29/22 Physical Therapist: Adriana Linton DPT Visit Plan Frequency: 2x /Week Duration: 4 Weeks Plan: Aquatics- focus on LE and core strength/stabilization- balance and flexibility HEP Given: reviewed current- pool paperwork given Subjective Subjective: She was having pain for a year in the left heel when walking- finally went to Dr. Taylor- she did PT- wasn't getting better. So she had surgery August 2022- Dr. Medina removed the heel spurs- detached/reattached the Achilles. She went to the hospital for a few days then was sent to [facility]. She went back to them for therapy- it has been about 2 weeks since she saw them. She reports that the pain is worse at night. The pain starts in the heel and will radiate up the calf- she has the sensation of a rug/rope burn on either side of the scar. It will radiate into the hamstring. Worst: 10/10 Agg: walking, using the mower (she was in bed for 2 days). Best: 2/10 Eases: rest and ice, hot shower. Describes the pain as sharp/shooting and dull and achy- depending on the time of day. Sleep: disturbed. She has been wearing backless shoes but does have on tennis shoes on today- she ordered [employer]- they were too small so she is still looking shoes. She gained 15 lbs since she got COVID and continued to put on another 15 due to immobility. She does not wear an insert in her shoes. No N/T in the bottom of her foot. HEP from therapy: ankle ROM ex, towel scrunches, gastroc stretch, hamstring stretch. PMHx/Meds: no change since Dr. Aguila 12/27/22 Objective Objective: Posture: FH, RS- can correct with verbal cues but does not maintain Gait: slightly antalgic with decreased law and step length HR: able but very hesitant and reports pain TR: able without tightness Observation: scar is raised and has adhesions Palpation: tender from calf throughout and along the scar on the achilles into the medial and lateral malleolus ROM: DF: 15 degrees, PF: 60 degrees Inver: 40 degrees Ever: 30 degrees Strength: 4+/5 throughout ankle with discomfort, Knee: 4-/5 Flex: HS: severe, Gastroc: severe, Soleus: severe Balance: weight shift but does not SLS reports discomfort Balance/Special Test Scores Lower Extremity Functional Score: 19 Goals Goal 1:: Patient will be I with HEP and progression Goal Time Frame: 4-6 Weeks Goal 2:: Patient will ambulate >300 feet with a normalized gait pattern Goal Time Frame: 4-6 Weeks Goal 3:: Patient will SLS for 15 sec without LOB Goal Time Frame: 4-6 Weeks Goal 4:: Patient will report 80% improvement Goal Time Frame: 4-6 Weeks Rehabilitation Potential Physical Therapy Diagnosis: Patient presents with hypomobility- she has decreased ROM, strength, flex and muscular endurance leading to abnormal gait increased pain with ADL's. Rehabilitation Potential: Fair Anticipated Interventions Patient/Client Instruction: Educate patient on: Benefits of Fitness Program Therapeutic Exercise to Include: Strength training, Endurance training, Balance training, Coordination, Agility training, Body mechanics, Postural training, Flexibilty training, Gait and locomotor training, Neuromotor development, In an aquatic setting, Passive ROM, Active ROM, Dynamic Lumbar Stabilization and Scapular Strength/Stabilization Text: Thank you for the opportunity to evaluate your patient. For Medicare and Medicare HMO plans, please review the plan of care and approve it. It will need to be FAXED BACK to us at [phone] for Medicare purposes. For Medicare only, by signing this I certify the plan of care. Please let me know if there are questions or concerns regarding this plan of care. Physician Signature: Date:
--- NOTE | 2023-01-28 12:07 | HP.PTREVAL ---
Re-Evaluation Intro: Dr. Steven Taylor, DPM, It has been my pleasure to treat TANIA KEATING over the last 8 visits for Left Achilles Repair August 2022. Please see the progress note below for an update on the physical therapy plan of care! Subjective Subjective: Patient reports that the water is the best thing over- she feels that the foot is getting better. She has not had much swelling and the pain is much better. She reports she feels she is still limping but is really working to stop. She feels that she would like to keep coming to therapy to keep coming to get the rest of the way there. Objective Objective/Function: Posture: FH, RS- can correct with verbal cues but does not maintain Gait:no deviation noted HR: able but very hesitant and reports pain TR: no pain Observation: scar is raised and has adhesions Palpation: tender from calf throughout and along the scar on the achilles into the medial and lateral malleolus ROM: DF: 15 degrees, PF: 60 degrees Inver: 40 degrees Ever: 30 degrees Strength: 4+/5 throughout , Knee: 4-/5 Flex: HS: mod, Gastroc: mod, Soleus: mod Balance: 5 sec Plan Plan Plan: 01/28/23: Continue current POC 2x a week for 4 weeks *1 pool sessions before PT ER *UE/CORE SRDBs *Push ups *STS/SQUATS Aquatics- focus on LE and core strength/stabilization- balance and flexibility HEP Given: reviewed current- pool paperwork given Balance/Gait/Functional tests Balance/Special Test Scores Lower Extremity Functional Score: 24 Goals Goals Goal 1:: Patient will be I with HEP and progression Goal Time Frame: 4-6 Weeks Goal 2:: Patient will ambulate >300 feet with a normalized gait pattern Goal Time Frame: 4-6 Weeks Goal 3:: Patient will SLS for 15 sec without LOB Goal Time Frame: 4-6 Weeks Goal 4:: Patient will report 80% improvement Goal Time Frame: 4-6 Weeks Anticipated Interventions Anticipated Interventions Patient/Client Instruction: Educate patient on: Benefits of Fitness Program Therapeutic Exercise to Include: Strength training, Endurance training, Balance training, Coordination, Agility training, Body mechanics, Postural training, Flexibilty training, Gait and locomotor training, Neuromotor development, In an aquatic setting, Passive ROM, Active ROM, Dynamic Lumbar Stabilization and Scapular Strength/Stabilization Re-Evaluation Ending Re-evaluation ending: Please do not hesitate to contact me at [phone] by phone or if you have questions or concerns regarding this new plan of care! Sincerely, MALINDA WhitfieldT
--- NOTE | 2023-02-24 11:57 | HP.PTDCSUM ---
Discharge Summary D/C summary: It has been my pleasure to treat TANIA KEATING referred by Dr. Steven Taylor DPM, with the diagnosis of Left Achilles Repair August 2022 for a total of 15 visit(s). Discharge Date: Please see the following information for a summary of their discharge status. Subjective Subjective: Patient reports that being in the pool is a game changer. Today she is a 2/10. She feels that she is 65% back to all of her normal activities. She wants to be able to do more walking- she is too exhausted- but she feels that its more long the long COVID. Pain LLE: Pain Intensity (Out of 10): 3 RLE: Pain Intensity (Out of 10): 4 UE: Pain Intensity (Out of 10): 3 LBP: Pain Intensity (Out of 10): 3 Overall Improvement % Improvement: 65 Objective Objective/Function: Posture: FH, RS- can correct with verbal cues but does not maintain Gait:no deviation noted HR: able with UE A TR: no pain Observation: scar is raised and has adhesions Palpation: tender from calf throughout and along the scar on the achilles into the medial and lateral malleolus ROM: DF: 15 degrees, PF: 60 degrees Inver: 40 degrees Ever: 30 degrees Strength: 4+/5 throughout , Knee: 4-/5 Flex: HS: mod, Gastroc: mod, Soleus: mod Balance: 5 sec then loss of balance Goals Goal 1:: Patient will be I with HEP and progression Goal Progress: Goal Met Goal 2:: Patient will ambulate >300 feet with a normalized gait pattern Goal Progress: Goal Met Goal 3:: Patient will SLS for 15 sec without LOB Goal Progress: Progressing Goal 4:: Patient will report 80% improvement Goal Progress: Progressing Plan Plan: 02/24/23: Continue with HEP- Discharge to I HEP 01/28/23: Continue current POC 2x a week for 4 weeks Aquatics- focus on LE and core strength/stabilization- balance and flexibility HEP Given: reviewed current- pool paperwork given D/C Information d/c sentence: If there are questions or concerns regarding this patient's physical therapy, please feel free to call me at [phone]. Thank you for the referral of this patient. Sincerely, Adriana Linton, MALINDAT Balance/Gait/Functional tests Balance/Special Test Scores Lower Extremity Functional Score: 27 Improvement % Improvement: 65
== END 2023-02-24 14:41 | disposition home or self-care (01) ==
LOC: PT 11:30
PROVIDERS: PCP Student in an Organized Health Care Education/Training Program; Referring Provider Podiatrist Foot & Ankle Surgery; Visit Provider Podiatrist Foot & Ankle Surgery
DX: M79.672 Pain in left foot (principal); M76.62 Achilles tendinitis, left leg; M77.32 Calcaneal spur, left foot
CPT/HCPCS: 97110; 97113; 97162; 97164

== ENCOUNTER → 2023-03-19 | Outpatient (CLI) | payer MEDICARE, MEDICAID, SELFPAY ==
[2023-03-19 16:42] LABS: AST(SGOT) 16 U/L (15-37); Alanine Aminotransfer ALT/SGPT 27 U/L (13-56); Albumin, Serum 3.7 g/dL (3.2-5.0); Alkaline Phosphatase 102 U/L (45-117); Bilirubin, Direct 0.06 mg/dL (0.00-0.30); Cholesterol 218 mg/dL (200); Globulin 3.9 g/dL (2.2-4.2); High Density Lipoprotein 61 mg/dL; Protein, Total 7.6 g/dL (6.4-8.2); Triglycerides 184 mg/dL; Very Low Density Lipoprotein 37 mg/dL (5-40)
== END | disposition home or self-care (01) ==
LOC: LAB 15:04
PROVIDERS: PCP Student in an Organized Health Care Education/Training Program; Visit Provider Nurse Practitioner Family
DX: R07.9 Chest pain, unspecified (principal); E78.5 Hyperlipidemia, unspecified
CPT/HCPCS: 36415; 80061; 80076

== ENCOUNTER → 2023-07-06 | Outpatient (CLI) | payer MEDICARE, MEDICAID, SELFPAY ==
[2023-07-06 11:38] LABS: Erythrocyte Sedimentation Rate 8 mm/hr (0-30)
[2023-07-06 11:41] LABS: Absolute Lymphocyte Count 3.03 X10^3/uL (0.83-4.51); Absolute Neutrophil Count 3.6 X10^3/uL (2.0-7.7); Basophil# 0.04 X10^3/uL; Basophil% 0.5 % (0-1); Eosinophil# 0.56 X10^3/uL; Eosinophils% 6.9 % (0-5); Hematocrit 35.3 % (37-47); Hemoglobin 11.6 g/dL (12.0-15.0); Lymphocyte # 3.03 X10^3/ul (0.83-4.51); Lymphocyte % 37.5 % (19-41); Mean Corp Hgb Conc 32.9 g/dL (32-36); Mean Corpuscular Volume 100.6 fL (81-99); Mean Platelet Vol. 10.6 fl (6.2-12.0); Monocyte# 0.82 X10^3/uL; Monocyte% 10.1 % (0-10); NRBC Flagged by Analyzer 0 % (0-5); Neutrophil % 44.5 % (47-70); Platelet Count 320 K/mm3 (150-450); RBC Distribution Width CV 12.4 % (11.6-14.6); Red Blood Count 3.51 M/mm3 (4.2-5.4); White Blood Count 8.1 K/mm3 (4.4-11.0)
[2023-07-06 11:44] LABS: Hemoglobin A1c 5.5 % (3.8-5.6)
[2023-07-06 12:09] LABS: AST(SGOT) 16 U/L (15-37); Alanine Aminotransfer ALT/SGPT 26 U/L (13-56); Albumin, Serum 3.7 g/dL (3.2-5.0); Alkaline Phosphatase 107 U/L (45-117); Amylase 18 U/L (25-115); Anion Gap 3 (5-15); BUN 10 mg/dL (7-18); BUN/Creat Ratio 10.3 RATIO (10-20); Calcium,Total 9.1 mg/dL (8.5-10.1); Chloride 111 mmol/L (98-107); Creatinine, Serum 0.97 mg/dL (0.55-1.02); EST Glomerular Filtration Rate 61 mL/min (>60); Est Glom Filt Rate - Afr Amer 74 mL/min (>60); Free T3 1.7 pg/mL (2.18-3.98); Globulin 3.6 g/dL (2.2-4.2); Glucose 119 mg/dL (74-106); LDH 151 U/L (84-246); Lipase 17 U/L (13-75); Potassium 3.5 mmol/L (3.5-5.1); Protein, Total 7.3 g/dL (6.4-8.2); Sodium Level 141 mmol/L (136-145); T4 Free Direct 1.11 ng/dL (0.76-1.46); Thyroid Stim Hormone (TSH) 1.51 uIU/mL (0.358-3.74)
[2023-07-08 19:07] LABS: Cytoplasmic Ab (C-ANCA) <1:20 titer (Neg:<1:20); Endomysial Antibody IgA Negative (Negative); IgG, Quant 936 mg/dL (586-1602); Immunoglobulin A 284 mg/dL (87-352); Immunoglobulin E 156 IU/mL (6-495); Immunoglobulin G, Subclass 1 442 mg/dL (248-810); Immunoglobulin G, Subclass 2 356 mg/dL (130-555); Immunoglobulin G, Subclass 3 34 mg/dL (15-102); Immunoglobulin G, Subclass 4 32 mg/dL (2-96); Immunoglobulin M 59 mg/dL (26-217); Perinuclear Ab (P-ANCA) <1:20 titer (Neg:<1:20); t-Transglutaminase IgA <2 U/mL (0-3)
[2023-07-09 00:07] LABS: Beef <0.10 kU/L (Class 0); Chocolate <0.10 kU/L (Class 0); Codfish <0.10 kU/L (Class 0); Corn <0.10 kU/L (Class 0); Egg, Whole 0.11 kU/L (Class 0/I); Milk (Cow) 0.26 kU/L (Class 0/I); Mussels <0.10 kU/L (Class 0); Peanut <0.10 kU/L (Class 0); Pork 0.59 kU/L (Class II); Salmon <0.10 kU/L (Class 0); Shrimp <0.10 kU/L (Class 0); Soybean <0.10 kU/L (Class 0); Tuna <0.10 kU/L (Class 0); Wheat <0.10 kU/L (Class 0)
== END | disposition home or self-care (01) ==
LOC: LAB 10:49
PROVIDERS: PCP Student in an Organized Health Care Education/Training Program; Referring Provider Internal Medicine Gastroenterology; Visit Provider Internal Medicine Gastroenterology
DX: R11.0 Nausea (principal); K57.90 Diverticulosis of intestine, part unspecified, without perforation or abscess without bleeding; K59.09 Other constipation; R07.9 Chest pain, unspecified; G47.30 Sleep apnea, unspecified
CPT/HCPCS: 36415; 80053; 82150; 82652; 82784; 82785; 82787; 83036; 83516; 83615; 83690; 84439; 84443; 84481; 85025; 85652; 86003; 86005; 86140; 86255; 86256

== ENCOUNTER → 2023-07-17 | Outpatient (CLI) | payer MEDICARE, MEDICAID, SELFPAY ==
--- NOTE | 2023-07-17 09:17 | US_ITS ---
STUDY: ABDOMINAL ULTRASOUND REASON FOR EXAM: Female, 63 years old. Fatty liver TECHNIQUE: Transabdominal ultrasound was performed with real-time and static marcos scale imaging. TECHNICAL QUALITY: Adequate. COMPARISON: None. FINDINGS: Liver: The liver is slightly enlarged and measures 17.1 cm. There is increased echogenicity consistent with fatty infiltration. The bile ducts are within normal limits. There is hepatic color flow. The direction of portal flow is hepatopetal. There is no demonstrated mass lesion. Portal vein measurement: Gallbladder: Normal distended gallbladder. The gallbladder wall measures 1.6 mm. There is a negative sonographic Betancur''s sign. There is no pericholecystic fluid. There are no gallstones. There is a 2 mm x 2 mm x 2 mm gallbladder polyp. Common Bile Duct (C.B.D.): The common bile duct measures 5.7 mm. Pancreas: Normal size of the head, body and tail of the pancreas. There is increased echogenicity of the pancreas. There is no demonstrated pancreatic mass or cyst. Spleen: Normal size of the spleen. The spleen measures 7.9 cm x 4.5 cm x 4.3 cm. Right Kidney: Normal size of the right kidney. The right kidney measures 10 cm x 6 cm x 3.1 cm. Normal renal cortex. The right cortex measures 1.0 cm. There is no demonstrated renal mass or cyst. There is no right hydronephrosis. Left Kidney: Normal size of the left kidney. The left kidney measures 10.2 cm x 4.2 cm x 4.7 cm. Normal renal cortex. The left cortex measures 1.3 cm. There is a 1.2 cm x 1.1 cm x 1 cm cyst in the medial aspect of the left kidney. There is no left hydronephrosis. Aorta: Unremarkable I.V.C.: The IVC is patent. There is no ascites. IMPRESSION: Fatty infiltration of the liver. Mild hepatomegaly. 2 mm x 2 mm x 2 mm gallbladder polyp Electronically Signed: Wojciech Burks MD at 10:53 EST , STUDY: ABDOMINAL ULTRASOUND - ELASTOGRAPHY REASON FOR VISIT: Female, 63 years old. Fatty infiltration of the liver. TECHNIQUE: Liver stiffness measurements were obtained on a [employer] 85 ultrasound machine using a CA 1-7 probe following the SRU guidelines. 3 measurements were obtained using a 2-D-SWE method. TheIQR/M was 18% suggesting a quality data set. TECHNICAL QUALITY: Adequate. COMPARISON: None. FINDINGS: Liver: There is no demonstrated mass lesion. Median liver stiffness measured 8.6 kPa. Abdomen: There is no demonstrated mass lesion. US/ABD Complete w/ Elastography IMPRESSION: Liver stiffness measures 8.6 kPa compatible with F2-F3 (Mild to moderate liver fibrosis) Metavir score. Electronically Signed: Wojciech Burks MD at 10:54 EST ,
== END | disposition home or self-care (01) ==
LOC: US 09:16
PROVIDERS: PCP Student in an Organized Health Care Education/Training Program; Referring Provider Internal Medicine Gastroenterology; Visit Provider Internal Medicine Gastroenterology
DX: R11.0 Nausea (principal); K59.09 Other constipation; K57.90 Diverticulosis of intestine, part unspecified, without perforation or abscess without bleeding
CPT/HCPCS: 76700; 76981

== ENCOUNTER → 2023-08-12 | Outpatient (CLI) | payer MEDICARE, MEDICAID, SELFPAY ==
--- NOTE | 2023-08-12 14:30 | CT_ITS ---
STUDY: CT ABDOMEN AND PELVIS WITH CONTRAST REASON FOR EXAM: Female, 63 years old. Abdominal pain RADIATION DOSAGE (If Supplied By Facility): CTDIvol = ( 13.01 ) mGy, DLP = ( 760.99 ) mGycm TECHNIQUE: IV 100mL Isovue-300 was administered. Transaxial images were obtained from the dome of the diaphragm to the symphysis pubis. Multiplanar coronal and sagittal images were reformatted. Individualized Dose Optimization Techniques Were Used For This CT. COMPARISON: Prior studies dated: 07/16/2021 and 04/20/2021 FINDINGS: The visualized lung bases are unremarkable. The visualized portions of the heart are within normal limits. Mild hepatomegaly. No focal lesion is seen. Normal gallbladder and extrahepatic biliary system. 4 mm low-density lesion in the spleen could represent small cyst Normal pancreas. Normal bilateral adrenal glands. 1.4 cm exophytic cyst in the lower pole of right kidney for which no further follow-up exam is needed. Smaller cyst in the left kidney. Complex hyperdense nodule in the left kidney measuring about 1.5 cm unchanged the prior exam likely benign or complex cyst. The stomach is grossly unremarkable. Normal in caliber small bowel loops. Diverticulosis of the sigmoid colon without evidence of acute diverticulitis. Thickening of the descending colon likely due to underdistention. Colitis cannot be excluded. The appendix is visualized and appears normal. No evidence of abdominal aortic aneurysm. No retroperitoneal adenopathy. The bladder is not well distended. There is absence of the uterus consistent with a prior hysterectomy. Normal abdominal wall. Degenerative changes of the spine. Mild anterolisthesis of L4 over L5 unchanged. CT/Abdomen/Pelvis WITH Contrast IMPRESSION: 1. Diverticulosis without evidence of acute diverticulitis. 2. Thickening of the descending colon likely due to underdistention. Colitis cannot be excluded. 3. Otherwise no focal acute inflammatory process. 4. Hyperdense nodule in the left kidney unchanged prior examinations likely benign. Electronically Signed: Dago Thompson MD at 10:56 EST ,
[2023-08-12 15:03] LABS: CREATININE FINGERSTICK < 1.0 mg/dL (0.55-1.02); EGFR FINGERSTICK > 60.0000 mL/min (>60)
== END | disposition home or self-care (01) ==
LOC: CT 14:30
PROVIDERS: PCP Student in an Organized Health Care Education/Training Program; Referring Provider Internal Medicine Gastroenterology; Visit Provider Internal Medicine Gastroenterology
DX: R10.9 Unspecified abdominal pain (principal)
CPT/HCPCS: 74177; Q9967

== ENCOUNTER 2023-10-25 15:20 | Emergency (ER) | payer MEDICARE, MEDICAID, SELFPAY ==
[2023-10-25 15:21] VITALS: BP 126/87; PULSE 71; RESP 16; TEMP 36.6; O2SAT 95; BMI 33.9
--- NOTE | 2023-10-25 16:15 | ED.VIS.DENTA ---
HPI History of Present Illness Chief Complaint: Dental Narrative Narrative: 63-year-old female presenting with dental pain. She recently had a dental procedure done when she had a neuralgia removed and replaced patient and after this she had to have a root canal she was still having pain. She states that she had this procedure done on but she is still having pain on the right lower jaw where her teeth were removed during this procedure. There is no swelling of her face and she is not having fevers or chills. No problems swallowing or breathing. She states that they did not give her anything for pain and she has not been able to get a hold of them because it is the weekend. [facility] Medical History History of echocardiogram History of stress test Alfreda's thyroiditis Rheumatoid arthritis GERD (gastroesophageal reflux disease) Osteoporosis Neuropathy Migraines Goiter Cataracts, bilateral Wears glasses Loose, teeth Marijuana use Depression Anxiety Thyroid disease Walker as ambulation aid Ambulates with cane Arthritis High cholesterol Chronic neck pain Heartburn Sleep apnea Shortness of breath on exertion Cardiology follow-up encounter Obstructive sleep apnea Right bundle branch block Multiple sclerosis COVID-19 long hauler Kidney stones Hypertension Asthma Home Medications ?Medication ?Instructions ?Recorded ?Last Taken ?Type mecobalamin (vitamin B12) 1,000 1,000 mcg PO DAILY 12/02/21 Unknown History mcg chewable tablet (B12 Active) Magnesium Oil 3 spray PO/SL DAILY 12/11/22 Unknown History cholecalciferol (vitamin D3) 1,250 1,250 mcg PO QWEEK 12/11/22 Unknown History mcg (50,000 unit) capsule duloxetine 60 mg capsule,delayed 60 mg PO DAILY antidepressant 12/11/22 Unknown History release (Cymbalta) levothyroxine 75 mcg tablet 75 mcg PO DAILY 12/11/22 Unknown History qryegfrd-gaf-Q. coag-B. 1 tab PO DAILY 12/11/22 Unknown History subtilis-inulin 1 billion cell-1 gram chew tab (Culturelle Probiotic-Multivit) folic acid 1 mg tablet 1 mg PO DAILY #30 tabs 08/20/23 Unknown Rx hydrocodone-acetaminophen 5-325mg 1 tab PO Q6H PRN PRN Pain 3 days 10/25/23 Unknown Rx 5mg-325mg #12 TABLETS Allergy/AdvReac Type Severity Reaction Status Date / Time shellfish derived Allergy Unknown Unknown Verified 10/25/23 15:21 gabapentin Allergy Other Verified 10/25/23 15:21 prochlorperazine edisylate AdvReac Intermediate Other Verified 10/25/23 15:21 (From Compazine) prochlorperazine maleate AdvReac Intermediate Other Verified 10/25/23 15:21 (From Compazine) epinephrine (From Adrenalin) AdvReac Other Verified 10/25/23 15:21 Gdltvmd-JBX-DkV Reductase AdvReac Pain in Verified 10/25/23 15:21 Inhibitor (Qjrsagh-Zaf-Mbe joints Reductase Inhibitor) Family History Grandmother Arthritis Mother Arthritis Autoimmune disorder Colon cancer Myocardial infarction 58, 61 and 70 years old Depression Hypertension High cholesterol Melanoma CVA (cerebral vascular accident) Osteoporosis Father Asthma Brother Suicide attempt Colon cancer Brother Suicide attempt Alcoholism Sister Anesthesia complication Muscular dystrophy Grandfather Colon cancer Brother Leukemia Surgical History History of foot surgery Status post cervical polyp removal (~2008) History of lithotripsy (~1983) History of neck surgery History of History of hysterectomy (~2001) Social History Smoking Status: Never smoker second hand exposure: No alcohol intake: current alcohol intake frequency: holidays/special occasions only substance use type: does not use what type of physical activity do you participate in: none vinicio/mormon: Other seatbelt use: always ROS ROS ED Constitutional Constitutional ED: Denies chills, fever(s) or sweats Eyes Eyes: Denies blurry vision or change in vision ENT ENT ED: Reports other Details: Dental pain ; Denies ear pain or sore throat Cardiovascular Cardiovascular: Denies chest pain, palpitations or racing heartbeat Respiratory/Chest Respiratory/Chest: Denies cough, dyspnea or sputum Gastrointestinal Gastrointestinal: Denies abdominal pain, constipation, diarrhea, nausea or vomiting Genitourinary Genitourinary ED: Denies dysuria, hematuria or urinary frequency Musculoskeletal Musculoskeletal: Denies arthralgias, myalgias or neck pain Integumentary Denies abscess, Abrasions or rash Neurologic Neurologic: Denies headache(s), paresthesias or weakness Psychiatric Psychiatric: Denies anxiety, depression, suicidal ideation or suicidal thoughts Endocrine Endocrinology: Denies polydipsia or polyuria EXAM Physical Exam Const Vital Signs: 10/25/23 15:21 Temperature 97.9 F Temperature Source Temporal Pulse Rate 71 Respiratory Rate 16 Blood Pressure 126/87 H Blood Pressure Mean 100 Pulse Ox 95 Oxygen Delivery Method Room Air Positive well nourished General Appearance ED: NAD HEENT HEENT Narrative: Dentition do not appear to be inflamed on the right lower mandible where she is having pain. Gingiva is normal. There is no fluctuance or erythema. No swelling. Mouth ED: Yes oral and palatal mucosa normal, Yes lips normal and Yes tongue normal Mouth: oral and palatal mucosa normal, lips normal and tongue normal Throat: posterior oropharynx normal Eyes PERRL and EOMs intact bilaterally Neck no lymphadenopathy Lymph Lymphatic: no lymphadenopathy noted Resp normal respiratory effort, no retractions and clear to auscultation bilaterally Cardio regular rate Neuro oriented x3 and CN's II-XII intact bilaterally Sensorium / Orientation: alert Motor Exam: strength 5/5 throughout Psych mental status grossly normal Skin no rashes or lesions noted MDM MDM MDM Narrative Medical decision making narrative: 63-year-old female with postoperative dental pain. Does not appear she has any sort of infection in her mouth. She is on antibiotics currently. No systemic signs or symptoms. She states that her dentist did not give her anything for pain and she is not able to control this with Tylenol ibuprofen. She does not have any evidence of [place] angina or any other acute issues. I will prescribe her [place] for pain as she is tolerated this in the past. Return precautions are discussed. Recommended follow-up with her dentist. Impression: 1. Dental pain Discharge Plan Triage Chief Complaint: Dental ED Provider: Kenneth Betancourt Dx/Rx/DC Orders Instructions: ED Dental Pain Prescriptions: New hydrocodone-acetaminophen 5-325 mg tablet 1 tab PO Q6H PRN PRN (Reason: Pain) 3 Days Qty: 12 0RF No Action cholecalciferol (vitamin D3) 1,250 mcg (50,000 unit) capsule 1,250 mcg PO QWEEK Culturelle Probiotic-Multivit 1 billion cell- 1 gram tablet,chewable 1 tab PO DAILY duloxetine [Cymbalta] 60 mg capsule,delayed release(DR/EC) 60 mg PO DAILY Patient Comments: antidepressant B12 Active 1,000 mcg Tablet,Chewable 1,000 mcg PO DAILY levothyroxine 75 mcg tablet 75 mcg PO DAILY Patient Comments: take 1 tablet by mouth once daily ON AN EMPTY STOMACH Magnesium Oil 3 spray PO/SL DAILY folic acid 1 mg tablet 1 mg PO DAILY Qty: 30 3RF Primary Care Provider: José Luis Boss Referrals: José Luis Boss, [Primary Care Provider] - Print Language: Armenian Disposition Disposition: Home, Self Care
[2023-10-25] MEDS: HYDROcodone Bitartrate/Apap 5/325 Tablet PO (16:23)
[2023-10-25 16:24] VITALS: BP 125/65; PULSE 65; RESP 16; TEMP 36.8; O2SAT 100
== END 2023-10-25 16:35 | disposition home or self-care (01) ==
PROVIDERS: Emergency Provider Student in an Organized Health Care Education/Training Program; PCP Student in an Organized Health Care Education/Training Program; Visit Provider Student in an Organized Health Care Education/Training Program
DX: K08.89 Other specified disorders of teeth and supporting structures (principal); F32.A Depression, unspecified; F41.9 Anxiety disorder, unspecified; I10 Essential (primary) hypertension; Z90.710 Acquired absence of both cervix and uterus
CPT/HCPCS: 99282

== ENCOUNTER → 2023-11-24 | Outpatient (CLI) | payer MEDICARE, MEDICAID, SELFPAY ==
--- NOTE | 2023-11-24 10:35 | RAD_ITS ---
STUDY: X-RAY - PELVIS AND BILATERAL HIPS REASON FOR EXAM: Female, 63 years old. Pain. TECHNIQUE: AP view of the pelvis.? 2 views of the right hip, and 2 views of the left hip were obtained. COMPARISON: None. FINDINGS: Normal bowel gas pattern with air seen to the rectum. Phleboliths. Osteopenia. Mild arthrosis of both sacroiliac joints. Normal bilateral superior and inferior pubic rami. Normal pubic symphysis. Normal bilateral ischial tuberosities. Mild arthrosis of both hips. RAD/Hips B/L min 2 views w/ Pelvis IMPRESSION: Osteopenia with osteoarthrosis of the sacroiliac joints and both hips. No other abnormality. Electronically Signed: Marty Rodriguez MD at 12:37 EDT ,
--- NOTE | 2023-11-24 10:35 | RAD_ITS ---
STUDY: X-RAY - SACRUM/COCCYX REASON FOR EXAM: Female, 63 years old. Fall. Pain. TECHNIQUE: 3 view(s) of the sacrum and coccyx were obtained. COMPARISON: None. FINDINGS: Osteopenia. Mild arthrosis of both sacroiliac joints. Mild arthrosis of both hips. Phleboliths.. RAD/Sacrum-Coccyx min 2 Views IMPRESSION: Osteopenia with osteoarthritic changes. No acute abnormality identified. Electronically Signed: Marty Rodriguez MD at 12:39 EDT ,
== END | disposition home or self-care (01) ==
LOC: RAD 10:32
PROVIDERS: PCP Student in an Organized Health Care Education/Training Program; Referring Provider Internal Medicine Gastroenterology; Visit Provider Internal Medicine Gastroenterology
DX: M53.3 Sacrococcygeal disorders, not elsewhere classified (principal)
CPT/HCPCS: 72220; 73521

== ENCOUNTER 2024-07-01 10:53 | Day surgery (SDC) | payer MEDICARE, MEDICAID, SELFPAY ==
--- NOTE | 2024-06-30 16:49 | PAT.ANE_ITS ---
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 When Was Last Pacemaker Check QUESTION #4 FULL TEXT: You/Your Family Experience fever (hyperthermia) with Anesthesia Last Oral Intake Last Oral intake: Last Oral Intake NPO since Meds taken in AM with sips of water? Meds patient instructed to take am of surgery PONV PONV - senior front end engineer: PONV - senior front end engineer Female Yes 06/30/24 16:04 HX of Motion Sickness Yes 06/30/24 16:04 HX of N/V After Surgery No 06/30/24 16:04 Non-Smoker No 06/30/24 16:04 Duration of Surgery greater No 06/30/24 16:04 than 60 minutes Number of Risk Factors 2 06/30/24 16:04 PONV Score Moderate Risk 06/30/24 16:04 Height & Weight Height & Weight: Anesthesia: Height & Weight Height 5 ft 10/25/23 15:21 Respiratory Assessment Respiratory Assessment - senior front end engineer: Respiratory Tract Infection Hx - senior front end engineer Hx Respiratory Tract Infection No 06/30/24 16:04 STOP Sleep Apnea STOP Sleep Apnea - senior front end engineer: STOP Sleep Apnea - senior front end engineer Hx Hypertension Yes 06/30/24 16:04 Hx Sleep Apnea No 06/30/24 16:04 CPAP No 12/02/21 15:51 BIPAP No 12/02/21 15:51 Do you snore loudly (louder No 06/30/24 16:04 than talking or can be heard Do you often feel tired/ No 06/30/24 16:04 fatigued/ sleepy during daytime? Has anyone observed you stop No 06/30/24 16:04 breathing during sleep? STOP Results Negative 06/30/24 16:04 QUESTION #5 FULL TEXT : Do you snore loudly (louder than talking or can be heard through closed doors)? 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 Specify any problems Hx of Preganancy in last 3 No 06/30/24 16:04 Months [facility] 06/30/24 16:04 & Questions: Date: 06/30/24 06/30/24 16:04 Time: 16:14 06/30/24 16:04 Patient unable to answer at this time (ie. confused, unrespo /Reproduction History /Reproductive History - senior front end engineer: /Reproductive Hx- senior front end engineer Hx Now Gestational Age (in weeks): EDC: Hx Hx Para Hx Section SAB No 12/02/21 15:51 PFSH Medical History Bladder disease Injury of back Injury of head and neck Restless legs History of hiatal hernia History of ulceration History of diverticulitis Gastric reflux Non-smoker History of echocardiogram History of stress test Alfreda's thyroiditis Rheumatoid arthritis GERD (gastroesophageal reflux disease) Osteoporosis Neuropathy Migraines Goiter Cataracts, bilateral Wears glasses Loose, teeth Marijuana use Depression Anxiety Thyroid disease Walker as ambulation aid Ambulates with cane Arthritis High cholesterol Chronic neck pain Heartburn Sleep apnea Shortness of breath on exertion Cardiology follow-up encounter Obstructive sleep apnea Right bundle branch block Multiple sclerosis COVID-19 long hauler Kidney stones Hypertension Asthma Home Medications ?Medication ?Instructions ?Recorded ?Last Taken ?Type mecobalamin (vitamin B12) 1,000 1,000 mcg PO DAILY 12/02/21 Unknown History mcg chewable tablet (B12 Active) Magnesium Oil 3 spray PO/SL DAILY 12/11/22 Unknown History cholecalciferol (vitamin D3) 1,250 1,250 mcg PO QWEEK 12/11/22 Unknown History mcg (50,000 unit) capsule duloxetine 60 mg capsule,delayed 60 mg PO DAILY antidepressant 12/11/22 Unknown History release (Cymbalta) levothyroxine 75 mcg tablet 75 mcg PO DAILY 12/11/22 Unknown History folic acid 1 mg tablet 1 mg PO DAILY #30 TABLETS 01/09/24 Unknown Rx sulfasalazine 500 mg 1 g (2 x 500 mg) PO BID 30 days 04/01/24 Unknown Rx tablet,delayed release #120 tabs pantoprazole 20 mg tablet,delayed 20 mg PO BID 05/26/24 Unknown History release sucralfate 1 gram tablet 1 g PO TID #90 tabs 06/23/24 Unknown Rx Allergy/AdvReac Type Severity Reaction Status Date / Time gabapentin Allergy Other Verified 06/30/24 16:02 prochlorperazine edisylate AdvReac Intermediate Other Verified 06/30/24 16:02 (From Compazine) prochlorperazine maleate AdvReac Intermediate Other Verified 06/30/24 16:02 (From Compazine) epinephrine (From Adrenalin) AdvReac Other Verified 06/30/24 16:02 Vpmiazp-PYF-QeI Reductase AdvReac Pain in Verified 06/30/24 16:02 Inhibitor (Fjhoufj-Vmm-Xkl joints Reductase Inhibitor) Family History Grandmother Arthritis Mother Arthritis Autoimmune disorder Colon cancer Myocardial infarction 58, 61 and 70 years old Depression Hypertension High cholesterol Melanoma CVA (cerebral vascular accident) Osteoporosis Father Asthma Brother Suicide attempt Colon cancer Brother Suicide attempt Alcoholism Sister Anesthesia complication Muscular dystrophy Grandfather Colon cancer Brother Leukemia Surgical History History of foot surgery Status post cervical polyp removal (~2008) History of lithotripsy (~1983) History of neck surgery History of History of hysterectomy (~2001) Social History Smoking Status: Never smoker second hand exposure: No alcohol intake: current alcohol intake frequency: holidays/special occasions only substance use type: does not use what type of physical activity do you participate in: none vinicio/latter-day: Other seatbelt use: always Audit: Pertinent Findings Pertinent Findings EKG Perinent findings: October 16, 2021. Sinus rhythm. Right bundle branch block. Stress test pertinent findings: December 24, 2022. Ejection fraction 83%. No ischemia noted no previous infarct noted Echo (EF%) pertinent findings: November 08, 2021. Ejection fraction 60%. No aortic stenosis noted. Consult pertinent findings: March 20, 2023. [facility] [employer]. 1. Hypertension?well-controlled 2. Chest pain?resolved. Last stress test was negative for ischemia. 3. Dyspnea on exertion?resolved. Stress and echo have been normal. 4. Sleep apnea-patient stopped using her CPAP machine when she lost weight. She has regained some weight now and is looking to restart she will see concaver Recommendation Anesthesia Recommendation Anesthesia recommendation: OPTIMIZED for anesthesia
[2024-07-01] VITALS (8 sets, daily range): BP systolic 148–170; BP diastolic 83–89; PULSE 67–77; RESP 16; TEMP 36.4; O2SAT 93–96; BMI 32.5
--- NOTE | 2024-07-01 11:46 | HP.PCM_ITS ---
HPI - General General Date of Admission: 07/01/24 Date of Service: 07/01/24 Chief Complaint: abdominal pain and nausea HPI Narrative TANIA KEATING, is a 64 F who presents for the evaulation of worsening abdominal pain and nausea [facility] ED 07.16.21 no acute findings and discharged with bentyl and Zofran. ? CT abd/pel colonic diverticulosis; renal stones; stable renal lesions. *BGI established 08.22.21 following [facility] ED presentation. Reports history of diverticular cysts seen on previous colonoscopies. Difficulty with abdominal cramping in LLQ preceding BM; will then perform maneuvers with abdominal pressure and cat pose to produce large watery BM. ? EGD and colonoscopy 12.05.21 EGDLA Grade A esophagitis; cratered ulcer of gastric antrum; gastritis. ? Colonoscopy three polyps; diverticulosis. OV 01.01.22 Start sucralfate. Constipation well-managed. Possibility of SCAD, does not require treatment at this time. Reflux well controlled with PPI therapy. OV 06.20.22 meslamine start for SCAD. Refer ST services ? US cancelled. [facility] 10.29.22 with inflammatory versus infection colon concern and started on cipro/flagyl. ? CT abd/pel hepatic steatosis; splenic cysts versus hemangiomas; small hiatal hernia; diverticulosis; descending colon haziness with prominent circumferential wall thickening. OV 11.04.22 SCAD treated with mesalamine from -. ? Biochemical ESR, DEE comp, celiac, IBD without pertinent abnormality. ? CRP H5.8 ? Stool calprotectin, lactoferrin WNL. Contact, portal 11.29.22 reporting repeated diverticulitis and LLQ abdominal pain. Additional information requested and not received. OV 01.23.23 reports that she has had several episodes of diverticulitis; only reported to physician evaluation once, other episodes she remained at home for. Symptoms include nausea, bloating and constipation (BM each day with intermittent hard stools and difficulty motility). Continues with protonix BID. OV 1.29.24 nausea, bloating and flatulence with LLQ abdominal discomfort are an issue. BM typically daily but has incomplete evacuation; PRN stool softeners which vary in effectiveness, magnesium spray also used. Diet includes toast, eggs, lean meats and fruits/vegetables, drinks diluted sweet tea and grape juice; reduced processed foods. Uses CBD gummies taken BID. Feels showers/swimming make her feel better and do improve GI symptoms. OV 6.18.24 OV 12..24 pt reports nausea in the morning for the past couple of months. States that the nausea subsides after she eats something. Pt denies GI symptoms of concern at this time. [facility] Medical History Bladder disease Injury of back Injury of head and neck Restless legs History of hiatal hernia History of ulceration History of diverticulitis Gastric reflux Non-smoker History of echocardiogram History of stress test Alfreda's thyroiditis Rheumatoid arthritis GERD (gastroesophageal reflux disease) Osteoporosis Neuropathy Migraines Goiter Cataracts, bilateral Wears glasses Loose, teeth Marijuana use Depression Anxiety Thyroid disease Walker as ambulation aid Ambulates with cane Arthritis High cholesterol Chronic neck pain Heartburn Sleep apnea Shortness of breath on exertion Cardiology follow-up encounter Obstructive sleep apnea Right bundle branch block Multiple sclerosis COVID-19 long hauler Kidney stones Hypertension Asthma Home Medications ?Medication ?Instructions ?Recorded ?Last Taken ?Type mecobalamin (vitamin B12) 1,000 1,000 mcg PO DAILY 12/02/21 Unknown History mcg chewable tablet (B12 Active) Magnesium Oil 3 spray PO/SL DAILY 12/11/22 Unknown History cholecalciferol (vitamin D3) 1,250 1,250 mcg PO QWEEK 12/11/22 Unknown History mcg (50,000 unit) capsule duloxetine 60 mg capsule,delayed 60 mg PO DAILY antidepressant 12/11/22 06/30/24 History release (Cymbalta) levothyroxine 75 mcg tablet 75 mcg PO DAILY 12/11/22 06/30/24 History folic acid 1 mg tablet 1 mg PO DAILY #30 TABLETS 01/09/24 Unknown Rx sulfasalazine 500 mg 1 g (2 x 500 mg) PO BID 30 days 04/01/24 Unknown Rx tablet,delayed release #120 tabs pantoprazole 20 mg tablet,delayed 20 mg PO BID 05/26/24 06/30/24 History release sucralfate 1 gram tablet 1 g PO TID #90 tabs 06/23/24 Unknown Rx Allergy/AdvReac Type Severity Reaction Status Date / Time gabapentin Allergy Other Verified 07/01/24 11:08 prochlorperazine edisylate AdvReac Intermediate Other Verified 07/01/24 11:08 (From Compazine) prochlorperazine maleate AdvReac Intermediate Other Verified 07/01/24 11:08 (From Compazine) epinephrine (From Adrenalin) AdvReac Other Verified 07/01/24 11:08 Rehlrfo-MBY-YtY Reductase AdvReac Pain in Verified 07/01/24 11:08 Inhibitor (Sebwycj-Thh-Wia joints Reductase Inhibitor) Family History Grandmother Arthritis Mother Arthritis Autoimmune disorder Colon cancer Myocardial infarction 58, 61 and 70 years old Depression Hypertension High cholesterol Melanoma CVA (cerebral vascular accident) Osteoporosis Father Asthma Brother Suicide attempt Colon cancer Brother Suicide attempt Alcoholism Sister Anesthesia complication Muscular dystrophy Grandfather Colon cancer Brother Leukemia Surgical History History of foot surgery Status post cervical polyp removal (~2008) History of lithotripsy (~1983) History of neck surgery History of History of hysterectomy (~2001) Social History Smoking Status: Never smoker second hand exposure: No alcohol intake: current alcohol intake frequency: holidays/special occasions only substance use type: does not use what type of physical activity do you participate in: none vinicio/episcopal: Other seatbelt use: always ROS Constitutional Constitutional: Denies fatigue, fever(s), poor appetite, weight gain or weight loss Gastrointestinal Gastrointestinal: Denies belching, bloating, change in bowel habits, change in stool character, chewing difficulty, coffee ground emesis, constipation, cramping, diarrhea, dyspepsia, dysphagia, early satiety, excessive flatus, fecal incontinence, heartburn, hematemesis, hematochezia, hemorrhoids, loose stools, melena, nausea, odynophagia, rectal bleeding, tenesmus, vomiting or weight changes Vital Signs Vital Signs Vital Signs: 07/01/24 11:09 07/01/24 11:09 Temperature 97.6 F L Temperature Source Temporal Pulse Rate 77 Respiratory Rate 16 Respiratory Pattern Normal Blood Pressure 170/89 H Blood Pressure Mean 116 Blood Pressure Source Monitor Blood Pressure Position Sitting Blood Pressure Location Left Arm Pulse Ox 96 Oxygen Delivery Method Room Air Weight Weight: 167 lb Body Mass Index (BMI) 32.5 Physical Exam Const alert, oriented x3, no apparent distress and healthy appearing General Appearance: cooperative GI normal to inspection, nondistended, normoactive bowel sounds, soft to palpation, non-tender and non-distended Percussion: normal to percussion Rectal Exam: deferred Assessment & Plan Assessment/Plan (1) Nausea: (2) LLQ abdominal pain: PLAN: Plan Assessment and Plan (1) Sacral dysfunction: Status: Acute Plan: She does have pain on palpation around the area of the sacrum and coccyx status post fall. We will order an x-ray of the sacrum and coccyx. I think most of her left lower quadrant pain that she has been experiencing could be from her left hip so we will also get x-ray of the hip. (2) Diverticular disease: Status: Chronic (3) Chronic constipation: Status: Chronic (4) Diverticulosis: Status: Acute Plan: She could be having sigmoid colitis associated with diverticulosis. This is called scad. She will need to undergo colonoscopy for evaluation of the lower GI tract to see if there is inflammation surrounding the sigmoid colon area but not exactly affecting the diverticuli. Treatment for that would be mesalamine based therapy plus a probiotic and ciprofloxacin with Flagyl. We will also look for signs of ischemic disease such as ischemic colitis less likely inflammatory bowel disease. She had undergone colonoscopy back in 2021 that did show signs of sigmoid colitis associated with diverticulosis. (5) Abdominal pain: Status: Acute Plan: Her abdominal pain is likely multifactorial. I think she has episodes of constipation which leads to her symptoms. However there is also the possibility of peptic ulcer disease or celiac disease affecting upper GI tract. 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 We will perform an upper endoscopy to evaluate upper GI tract. (6) Nausea: Status: Chronic Plan: I think that her nausea is multifactorial secondary to a lot of supplements that she may be taking along with underlying COPD, IBS and some elements of exocrine pancreatic insufficiency. She does not want to take any pancreatic enzymes at this time to see if it does have a positive effect but she does take magnesium and turmeric. (7) LLQ abdominal pain: Status: Acute
--- NOTE | 2024-07-01 12:00 | EGD_PTH ---
PATIENT: TANIA KEATING LOC: [facility] U#:[id number] AGE/SX: 64/F ROOM: RE07/01/[address]: Dr. Tariq Florez DO : 1960 BED: DIS: 07/01/2024 SPEC #: [id number] RECD: 07/01/24 17:17 STATUS: BECKA REMilla #: [id number] CHARLES: 07/01/24 12:[address]: Tariq Florez DEPT: SURGICAL PATHOLOGY RECD BY: Jaz Goncalves ENTERED: 07/04/24 09:47 SP TYPE: EGD BIOPSY OT DR: Dr. José Luis Boss DO Tissues: A - Duodenum, NOS B - Gastric mucous membrane C - Esophagus, NOS Procedures: Special Stain Group I Surgery Specimen Level IV Alcian Blue/PAS (control) HEADER OPERATION: EGD with dilation PRE-OP DIAGNOSIS: Abdominal pain and nausea TISSUE SUBMITTED: A- Duodenum biopsy, B- Gastric antrum biopsy, C- Distal esophagus biopsy MICROSCOPIC DIAGNOSIS A. Duodenum, biopsy: A fragment of duodenal mucosa with Tahira's gland hyperplasia. A fragment of gastric mucosa with mild chronic inflammation. See comment. B. Gastric antrum, biopsy: Mild gastritis. See microscopic description and comment. C. Distal esophagus, biopsy: Fragments of gastric mucosa with moderate chronic inflammation and mild acute inflammation. Intestinal metaplasia (goblet cell metaplasia) not identified. See comment. 07/05/2024 COMMENT A. Fragment of duodenal mucosa shows mostly denuded epithelium. B. The results of immunohistochemistry for Helicobacter pylori will be reported separately ([id number]). C. Alcian blue/PAS stain with matched control is used in the evaluation of the specimen. MICROSCOPIC DESCRIPTION Slides are reviewed. B. The specimen shows fragments of gastric mucosa with chronic inflammatory cell infiltrates in the lamina propria consisting of lymphocytes and plasma cells, consistent with mild chronic gastritis. GROSS DESCRIPTION A. Received in fixative is one container labeled with the patient's name and designated Duodenum biopsy. The specimen consists of two irregular fragments of light cherry soft tissue that in aggregate measure 1 x 0.3 x 0.1 cm. The specimen is totally submitted in one cassette. B. Received in fixative is one container labeled with the patient's name and designated Gastric antrum biopsy. The specimen consists of two irregular fragments of light cherry soft tissue that in aggregate measure 0.7 x 0.5 x 0.1 cm. The specimen is totally submitted in one cassette. C. Received in fixative is one container labeled with the patient's name and designated Distal esophagus biopsy. The specimen consists of two irregular fragments of light cherry soft tissue that in aggregate measure 1 x 0.3 x 0.1 cm. The specimen is totally submitted in one cassette. 07/04/2024 TC:3 CPT:26393s4, 24176
--- NOTE | 2024-07-01 12:00 | IMM_PTH ---
PATIENT: TANIA KEATING LOC: EN U#:[id number] AGE/SX: 64/F ROOM: RE07/01/[address]: Dr. Tariq Florez DO : 1960 BED: DIS: 07/01/2024 SPEC #: [id number] RECD: 07/04/24 10:38 STATUS: BECKA REQ #: [id number] CHARLES: 07/01/24 12:[address]: Tariq Florez DEPT: IMMUNOHISTOCHEMISTRY RECD BY: Troy Bui ENTERED: 07/04/24 10:38 SP TYPE: IMMUNO OTHR DR: Dr. José Luis Boss DO Tissues: B - Gastric mucous membrane Procedures: H Pylori (initial) PHYSICIAN & INSTITUTION [place] [id number] SPECIMEN INFORMATION: Tissue Source: B- Gastric antrum biopsy Clinical Info: Abdominal pain and nausea Specimen Number: [id number] CPT code: 34962 METHODOLOGY: Deparaffinized sections of prefer/formalin-fixed tissue or PAP/DQ stained slides are incubated with monoclonal/polyclonal antibodies/oligonucleotide probes. Localization is made via biotin free immunoperoxidase method. Appropriate controls are performed and reacted as expected. Results on target cell population are indicated in the following table: RESULTS: ANTIBODY / CLONE RESULT Block B H Pylori (polyclonal) negative These tests were developed and their performance characteristics determined by [facility]. They may not have been cleared or approved by the U.S. Food and Drug Administration. The FDA has determined that such clearance or approval is not necessary. The above immunohistochemical/dualISH markers are ordered and reviewed by the Pathologist. INTERPRETATION: B. Gastric antrum, biopsy: Negative for Helicobacter pylori organisms. ANNE/ 07/05/2024
--- NOTE | 2024-07-01 12:05 | PRE.ANES_ITS ---
ASA Classification* ASA Classification ASA Classification: 2 Assessment & Plan Anesthesia* Anesthesia Assessment Anesthesia Assessment: Discussed sedation and/or anesthesia options, risks, benefits, and alternatives with patient/parents/legal guardian/POA. Questions invited. The patient/parents/legal guardian/POA seems to understand and agrees to proceed with anesthesia plan. Reviewed the physical assessment, medical history, allergy history and patient home medications list prior to surgery/procedure/anesthetic and documented any changes. Performed airway and anesthesia risk assessments. Anesthesia Type Anesthesia Type: MAC History Source History Obtained from:: Patient and Chart Anesthesia Focused Assessment* Temperature: 97.6 F Pulse Rate: 77 Blood Pressure: 170/89 Respiratory Rate: 16 Pulse Ox: 96 Airway Assessment Mouth opens: >3 cm Mallampati Score: II Neck Range of motion (ROM): Full ROM Focused Labs Anesthesia Preop lab: CBC WBC 8.1 K/mm3 (4.4-11.0) 07/06/23 10:52 RBC 3.51 M/mm3 (4.2-5.4) L 07/06/23 10:52 Hgb 11.6 g/dL (12.0-15.0) L 07/06/23 10:52 Hct 35.3 % (37-47) L 07/06/23 10:52 Plt Count 320 K/mm3 (150-450) 07/06/23 10:52 CHEMISTRY Potassium 3.5 mmol/L (3.5-5.1) 07/06/23 10:52 Sodium 141 mmol/L (136-145) 07/06/23 10:52 Magnesium 2.1 mg/dL (1.8-2.4) 09/21/14 23:25 BUN 10 mg/dL (7-18) 07/06/23 10:52 Creatinine 0.97 mg/dL (0.55-1.02) 07/06/23 10:52 Glucose 119 mg/dL (74-106) H 07/06/23 10:52 TSH 1.51 uIU/mL (0.358-3.74) 07/06/23 10:52 COAG Pre-Assessment Diagnosis/Proposed Procedure Planned Operative Procedure(s): EGD Anesthesia History 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 When Was Last Pacemaker Check QUESTION #4 FULL TEXT: You/Your Family Experience fever (hyperthermia) with Anesthesia Last Oral Intake Last Oral intake: Last Oral Intake NPO since 00:00 07/01/24 11:09 Meds taken in AM with sips of water? Meds patient instructed to take am of surgery PONV PONV - excellence coach: PONV - excellence coach Female Yes 06/30/24 16:04 HX of Motion Sickness Yes 06/30/24 16:04 HX of N/V After Surgery No 06/30/24 16:04 Non-Smoker No 06/30/24 16:04 Duration of Surgery greater No 06/30/24 16:04 than 60 minutes Number of Risk Factors 2 06/30/24 16:04 PONV Score Moderate Risk 06/30/24 16:04 Height & Weight Height & Weight: Anesthesia: Height & Weight Height 5 ft 07/01/24 11:09 Weight: 75.75 kg 07/01/24 11:09 Body Mass Index (BMI) 32.5 07/01/24 11:09 Respiratory Assessment Respiratory Assessment - excellence coach: Respiratory Tract Infection Hx - excellence coach Hx Respiratory Tract Infection No 06/30/24 16:04 STOP Sleep Apnea STOP Sleep Apnea - excellence coach: STOP Sleep Apnea - excellence coach Hx Hypertension Yes 06/30/24 16:04 Hx Sleep Apnea No 06/30/24 16:04 CPAP No 12/02/21 15:51 BIPAP No 12/02/21 15:51 Do you snore loudly (louder No 06/30/24 16:04 than talking or can be heard Do you often feel tired/ No 06/30/24 16:04 fatigued/ sleepy during daytime? Has anyone observed you stop No 06/30/24 16:04 breathing during sleep? STOP Results Negative 06/30/24 16:04 QUESTION #5 FULL TEXT : Do you snore loudly (louder than talking or can be heard through closed doors)? 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 Specify any problems Hx of Preganancy in last 3 No 06/30/24 16:04 Months Nurse Filling Out Transfusion [id number] 06/30/24 16:04 & Questions: Date: 06/30/24 06/30/24 16:04 Time: 16:14 06/30/24 16:04 Patient unable to answer at this time (ie. confused, unrespo /Reproduction History /Reproductive History - excellence coach: /Reproductive Hx- excellence coach Hx Now Gestational Age (in weeks): EDC: Hx Hx Para Hx Section SAB No 12/02/21 15:51 PFSH Medical History Bladder disease Injury of back Injury of head and neck Restless legs History of hiatal hernia History of ulceration History of diverticulitis Gastric reflux Non-smoker History of echocardiogram History of stress test Alfreda's thyroiditis Rheumatoid arthritis GERD (gastroesophageal reflux disease) Osteoporosis Neuropathy Migraines Goiter Cataracts, bilateral Wears glasses Loose, teeth Marijuana use Depression Anxiety Thyroid disease Walker as ambulation aid Ambulates with cane Arthritis High cholesterol Chronic neck pain Heartburn Sleep apnea Shortness of breath on exertion Cardiology follow-up encounter Obstructive sleep apnea Right bundle branch block Multiple sclerosis COVID-19 long hauler Kidney stones Hypertension Asthma Home Medications ?Medication ?Instructions ?Recorded ?Last Taken ?Type mecobalamin (vitamin B12) 1,000 1,000 mcg PO DAILY 12/02/21 Unknown History mcg chewable tablet (B12 Active) Magnesium Oil 3 spray PO/SL DAILY 12/11/22 Unknown History cholecalciferol (vitamin D3) 1,250 1,250 mcg PO QWEEK 12/11/22 Unknown History mcg (50,000 unit) capsule duloxetine 60 mg capsule,delayed 60 mg PO DAILY antidepressant 12/11/22 06/30/24 History release (Cymbalta) levothyroxine 75 mcg tablet 75 mcg PO DAILY 12/11/22 06/30/24 History folic acid 1 mg tablet 1 mg PO DAILY #30 TABLETS 01/09/24 Unknown Rx sulfasalazine 500 mg 1 g (2 x 500 mg) PO BID 30 days 04/01/24 Unknown Rx tablet,delayed release #120 tabs pantoprazole 20 mg tablet,delayed 20 mg PO BID 05/26/24 06/30/24 History release sucralfate 1 gram tablet 1 g PO TID #90 tabs 06/23/24 Unknown Rx Allergy/AdvReac Type Severity Reaction Status Date / Time gabapentin Allergy Other Verified 07/01/24 11:08 prochlorperazine edisylate AdvReac Intermediate Other Verified 07/01/24 11:08 (From Compazine) prochlorperazine maleate AdvReac Intermediate Other Verified 07/01/24 11:08 (From Compazine) epinephrine (From Adrenalin) AdvReac Other Verified 07/01/24 11:08 Idieoba-UET-XhW Reductase AdvReac Pain in Verified 07/01/24 11:08 Inhibitor (Iunjbyq-Sat-Cjm joints Reductase Inhibitor) Family History Grandmother Arthritis Mother Arthritis Autoimmune disorder Colon cancer Myocardial infarction 58, 61 and 70 years old Depression Hypertension High cholesterol Melanoma CVA (cerebral vascular accident) Osteoporosis Father Asthma Brother Suicide attempt Colon cancer Brother Suicide attempt Alcoholism Sister Anesthesia complication Muscular dystrophy Grandfather Colon cancer Brother Leukemia Surgical History History of foot surgery Status post cervical polyp removal (~2008) History of lithotripsy (~1983) History of neck surgery History of History of hysterectomy (~2001) Social History Smoking Status: Never smoker second hand exposure: No alcohol intake: current alcohol intake frequency: holidays/special occasions only substance use type: does not use what type of physical activity do you participate in: none vinicio/amish: Other seatbelt use: always Review of Systems (Anesthesia) ROS Narrative System reviewed and no additional complaints, except as documented.
--- NOTE | 2024-07-01 12:10 | PCM.PRE.AN2 ---
ASA Classification* ASA Classification ASA Classification: 3 Assessment & Plan Anesthesia* Anesthesia Assessment Anesthesia Assessment: Discussed sedation and/or anesthesia options, risks, benefits, and alternatives with patient/parents/legal guardian/POA. Questions invited. The patient/parents/legal guardian/POA seems to understand and agrees to proceed with anesthesia plan. Reviewed the physical assessment, medical history, allergy history and patient home medications list prior to surgery/procedure/anesthetic and documented any changes. Performed airway and anesthesia risk assessments. Anesthesia Type Anesthesia Type: MAC History Source History Obtained from:: Patient and Chart Anesthesia Focused Assessment* Temperature: 97.6 F Pulse Rate: 77 Blood Pressure: 170/89 Respiratory Rate: 16 Pulse Ox: 96 Airway Assessment Mouth opens: >3 cm Mallampati Score: III Teeth Condition: Partial Neck Range of motion (ROM): Full ROM Focused Labs Anesthesia Preop lab: CBC WBC 8.1 K/mm3 (4.4-11.0) 07/06/23 10:52 RBC 3.51 M/mm3 (4.2-5.4) L 07/06/23 10:52 Hgb 11.6 g/dL (12.0-15.0) L 07/06/23 10:52 Hct 35.3 % (37-47) L 07/06/23 10:52 Plt Count 320 K/mm3 (150-450) 07/06/23 10:52 CHEMISTRY Potassium 3.5 mmol/L (3.5-5.1) 07/06/23 10:52 Sodium 141 mmol/L (136-145) 07/06/23 10:52 Magnesium 2.1 mg/dL (1.8-2.4) 09/21/14 23:25 BUN 10 mg/dL (7-18) 07/06/23 10:52 Creatinine 0.97 mg/dL (0.55-1.02) 07/06/23 10:52 Glucose 119 mg/dL (74-106) H 07/06/23 10:52 TSH 1.51 uIU/mL (0.358-3.74) 07/06/23 10:52 COAG Pre-Assessment Diagnosis/Proposed Procedure Planned Operative Procedure(s): EGD Anesthesia History 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 When Was Last Pacemaker Check QUESTION #4 FULL TEXT: You/Your Family Experience fever (hyperthermia) with Anesthesia Last Oral Intake Last Oral intake: Last Oral Intake NPO since 00:00 07/01/24 11:09 Meds taken in AM with sips of water? 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 Female Yes 06/30/24 16:04 HX of Motion Sickness Yes 06/30/24 16:04 HX of N/V After Surgery No 06/30/24 16:04 Non-Smoker No 06/30/24 16:04 Duration of Surgery greater No 06/30/24 16:04 than 60 minutes Number of Risk Factors 2 06/30/24 16:04 PONV Score Moderate Risk 06/30/24 16:04 Height & Weight Height & Weight: Anesthesia: Height & Weight Height 5 ft 07/01/24 11:09 Weight: 75.75 kg 07/01/24 11:09 Body Mass Index (BMI) 32.5 07/01/24 11:09 Respiratory Assessment Respiratory Assessment - local company haz[employer] driver: Respiratory Tract Infection Hx - local 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 Has anyone observed you stop No 06/30/24 16:04 breathing during sleep? STOP Results Negative 06/30/24 16:04 QUESTION #5 FULL TEXT : Do you snore loudly (louder than talking or can be heard through closed doors)? 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 Specify any problems Hx of Preganancy in last 3 No 06/30/24 16:04 Months Nurse Filling Out Transfusion VLEHMAN 06/30/24 16:04 & Questions: Date: 06/30/24 06/30/24 16:04 Time: 16:14 06/30/24 16:04 Patient unable to answer at this time (ie. 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: /Reproductive Hx- local company hazmat driver Hx Now Gestational Age (in weeks): EDC: Hx Hx Para Hx Section SAB No 12/02/21 15:51 PFSH Medical History Bladder disease Injury of back Injury of head and neck Restless legs History of hiatal hernia History of ulceration History of diverticulitis Gastric reflux Non-smoker History of echocardiogram History of stress test Alfreda's thyroiditis Rheumatoid arthritis GERD (gastroesophageal reflux disease) Osteoporosis Neuropathy Migraines Goiter Cataracts, bilateral Wears glasses Loose, teeth Marijuana use Depression Anxiety Thyroid disease Walker as ambulation aid Ambulates with cane Arthritis High cholesterol Chronic neck pain Heartburn Sleep apnea Shortness of breath on exertion Cardiology follow-up encounter Obstructive sleep apnea Right bundle branch block Multiple sclerosis COVID-19 long hauler Kidney stones Hypertension Asthma Home Medications ?Medication ?Instructions ?Recorded ?Last Taken ?Type mecobalamin (vitamin B12) 1,000 1,000 mcg PO DAILY 12/02/21 Unknown History mcg chewable tablet (B12 Active) Magnesium Oil 3 spray PO/SL DAILY 12/11/22 Unknown History cholecalciferol (vitamin D3) 1,250 1,250 mcg PO QWEEK 12/11/22 Unknown History mcg (50,000 unit) capsule duloxetine 60 mg capsule,delayed 60 mg PO DAILY antidepressant 12/11/22 06/30/24 History release (Cymbalta) levothyroxine 75 mcg tablet 75 mcg PO DAILY 12/11/22 06/30/24 History folic acid 1 mg tablet 1 mg PO DAILY #30 TABLETS 01/09/24 Unknown Rx sulfasalazine 500 mg 1 g (2 x 500 mg) PO BID 30 days 04/01/24 Unknown Rx tablet,delayed release #120 tabs pantoprazole 20 mg tablet,delayed 20 mg PO BID 05/26/24 06/30/24 History release sucralfate 1 gram tablet 1 g PO TID #90 tabs 06/23/24 Unknown Rx Allergy/AdvReac Type Severity Reaction Status Date / Time gabapentin Allergy Other Verified 07/01/24 11:08 prochlorperazine edisylate AdvReac Intermediate Other Verified 07/01/24 11:08 (From Compazine) prochlorperazine maleate AdvReac Intermediate Other Verified 07/01/24 11:08 (From Compazine) epinephrine (From Adrenalin) AdvReac Other Verified 07/01/24 11:08 Gxipley-CGV-UqQ Reductase AdvReac Pain in Verified 07/01/24 11:08 Inhibitor (Fjbkraa-Baz-Bis joints Reductase Inhibitor) Family History Grandmother Arthritis Mother Arthritis Autoimmune disorder Colon cancer Myocardial infarction 56, 61 and 70 years old Depression Hypertension High cholesterol Melanoma CVA (cerebral vascular accident) Osteoporosis Father Asthma Brother Suicide attempt Colon cancer Brother Suicide attempt Alcoholism Sister Anesthesia complication Muscular dystrophy Grandfather Colon cancer Brother Leukemia Surgical History History of foot surgery Status post cervical polyp removal (~2008) History of lithotripsy (~1983) History of neck surgery History of History of hysterectomy (~2001) Social History Smoking Status: Never smoker second hand exposure: No alcohol intake: current alcohol intake frequency: holidays/special occasions only substance use type: does not use what type of physical activity do you participate in: none vinicio/anabaptist: Other seatbelt use: always Review of Systems (Anesthesia) ROS Narrative System reviewed and no additional complaints, except as documented.
--- NOTE | 2024-07-01 12:30 | PCM.POST.ANE ---
Anesthesia: Postop Eval I Current Vital Signs Temperature: 97.6 F Pulse Rate: 72 Blood Pressure: 151/89 Respiratory Rate: 16 Pulse Ox: 96 Oxygen Delivery Method: Room Air Assessment Airway patent: Yes Spontaneous unlabored respirations: Yes Mental status: Awake and Calm nausea: No Vomiting: No Anesthesia Complication: No Fluid Hydration Crystalloid volume administer (ml): 30 Total IV fluid infused: 30 Progress Note Anesthesia document: Postop Eval 1 completed: Yes
--- NOTE | 2024-07-01 12:35 | OP.CCLET_ITS ---
07/01/2024 José Luis Boss [address] [place] [address] Re : Upper GI endoscopy procedure for Tata Ordaz Dear Dr. Boss This procedure was performed on Monday, July 01, 2024. My impressions and recommendations are as follows: Impressions : - Benign-appearing esophageal stenosis. Dilated. - LA Grade A reflux esophagitis with no bleeding. Biopsied. - Erythematous mucosa in the gastric body. Biopsied. - Erythematous duodenopathy. Biopsied. Recommendations : - Discharge patient to home. - Resume previous diet. - Continue present medications. - Await pathology results. - Consider gastric emptying study My findings are described in the full procedure note, which is enclosed. If I can be of further assistance, please feel free to contact me at . Sincerely, Tariq Florez, 07/01/2024 12:34:50 PM This report has been signed electronically.
--- NOTE | 2024-07-01 12:35 | OP.EGD_ITS ---
Patient Name: Tata Ordaz Procedure Date: 07/01/2024 10:57 AM Date of : 1960 Age: 64 Procedure: Upper GI endoscopy Indications: Epigastric abdominal pain, Functional Dyspepsia, Dysphagia, Heartburn Providers: Tariq Florez DO Medicines: Monitored Anesthesia Care Patient Profile: This is a 64 year old female. Refer to note in patient chart for documentation of history and physical. Patient has symptoms of acute abdominal distention, acute epigastric abdominal pain, acute dysphagia and acute nausea. Complications: No immediate complications. Procedure: Pre-Anesthesia Assessment: - Prior to the procedure, a History and Physical was performed, and patient medications and allergies were reviewed. The patient is competent. The risks and benefits of the procedure and the sedation options and risks were discussed with the patient. All questions were answered and informed consent was obtained. Patient identification and proposed procedure were verified by the physician in the pre-procedure area. Mental Status Examination: alert and oriented. Airway Examination: normal oropharyngeal airway and neck mobility. Respiratory Examination: clear to auscultation. CV Examination: normal. ASA Grade Assessment: II - A patient with mild systemic disease. After reviewing the risks and benefits, the patient was deemed in satisfactory condition to undergo the procedure. The anesthesia plan was to use monitored anesthesia care (MAC). Immediately prior to administration of medications, the patient was re-assessed for adequacy to receive sedatives. The heart rate, respiratory rate, oxygen saturations, blood pressure, adequacy of pulmonary ventilation, and response to care were monitored throughout the procedure. The physical status of the patient was re-assessed after the procedure. After obtaining informed consent, the endoscope was passed under direct vision. Throughout the procedure, the patient's blood pressure, pulse, and oxygen saturations were monitored continuously. The gastroscope was introduced through the mouth, and advanced to the second part of duodenum. The upper GI endoscopy was accomplished without difficulty. The patient tolerated the procedure well. Scope In: 12:15:26 PM Scope Out: 12:22:51 PM Total Procedure Duration Time 0 hours 7 minutes 25 seconds Findings: One benign-appearing, intrinsic moderate stenosis was found 21 to 25 cm from the incisors. This stenosis measured 8 mm (inner diameter) x 6 cm (in length). The stenosis was traversed. A guidewire was placed and the scope was withdrawn. Dilation was performed with a Savary dilator with no resistance at 57 Fr. The dilation site was examined and showed moderate mucosal disruption. Estimated blood loss was minimal. LA Grade A (one or more mucosal breaks less than 5 mm, not extending between tops of 2 mucosal folds) esophagitis with no bleeding was found 38 to 40 cm from the incisors. Biopsies were taken with a cold forceps for histology. Verification of patient identification for the specimen was done. Estimated blood loss was minimal. Patchy moderately erythematous mucosa without bleeding was found in the gastric body. Biopsies were taken with a cold forceps for histology. Verification of patient identification for the specimen was done. Estimated blood loss was minimal. Biopsies were taken with a cold forceps for Helicobacter pylori testing. Verification of patient identification for the specimen was done. Estimated blood loss was minimal. Mildly erythematous mucosa without active bleeding and with no stigmata of bleeding was found in the duodenal bulb. Biopsies were taken with a cold forceps for histology. Verification of patient identification for the specimen was done. Estimated blood loss was minimal. Impression: - Benign-appearing esophageal stenosis. Dilated. - LA Grade A reflux esophagitis with no bleeding. Biopsied. - Erythematous mucosa in the gastric body. Biopsied. - Erythematous duodenopathy. Biopsied. Recommendation: - Discharge patient to home. - Resume previous diet. - Continue present medications. - Await pathology results. - Consider gastric emptying study Procedure Code(s): --- Professional --- 44620, Esophagogastroduodenoscopy, flexible, transoral; with insertion of guide wire followed by passage of dilator(s) through esophagus over guide wire 93282, 59,51, Esophagogastroduodenoscopy, flexible, transoral; with biopsy, single or multiple CPT copyright 2021 [employer]. All rights reserved. The codes documented in this report are preliminary and upon first dyer review may be revised to meet current compliance requirements. Tariq Florez DO 07/01/2024 12:34:50 PM This report has been signed electronically. Number of Addenda: 0 Note Initiated On: 07/01/2024 10:57 AM
--- NOTE | 2024-07-01 13:54 | PCM.POSTANE2 ---
Anesthesia Postop Eval I Sum Postop Eval Completion status Anesthesia document: Postop Eval 1 completed: Yes Anesthesia Postop Eval I Summary Anesthesia Postop Eval I Summary: Anesthesia Postop Eval I: Assessment Summary Airway patent Yes 07/01/24 12:31 [email or web address] Spontaneous unlabored Yes 07/01/24 12:31 [email or web address] respirations Mental status Awake,Calm 07/01/24 12:31 [email or web address] nausea No 07/01/24 12:31 [email or web address] Vomiting No 07/01/24 12:31 [email or web address] Anesthesia Postop Eval I: Fluid Summary Crystalloid volume administer 30 07/01/24 12:31 [email or web address] (ml) Colloids volume administered ( ml) Blood Product volume administered (ml) Total IV fluid infused 30 07/01/24 12:31 [email or web address] Anesthesia Postop Eval I: Summary Notes Anesthesia Complication No 07/01/24 12:31 [email or web address] Anesthesia Complication Comment: Post-operative progress note Anesthesia: Postop Eval II Evaluation Mental status: Awake Pain Level: 0 nausea: No Vomiting: No Complications Anesthesia Complication: No
== END 2024-07-01 13:19 | disposition home or self-care (01) ==
LOC: EN 10:55 → AC 10:56
PROVIDERS: PCP Student in an Organized Health Care Education/Training Program; Referring Provider Student in an Organized Health Care Education/Training Program; Visit Provider Internal Medicine Gastroenterology
PROC: 0DJ08ZZ Inspection of Upper Intestinal Tract, Via Natural or Artificial Opening Endoscopic (ICD-10-PCS; CPT 43235; principal; 2024-07-01 11:55)
DX: K22.2 Esophageal obstruction (principal); I10 Essential (primary) hypertension; E78.00 Pure hypercholesterolemia, unspecified; R10.32 Left lower quadrant pain; K57.30 Diverticulosis of large intestine without perforation or abscess without bleeding; N20.0 Calculus of kidney; K29.70 Gastritis, unspecified, without bleeding; K21.9 Gastro-esophageal reflux disease without esophagitis; R13.10 Dysphagia, unspecified; K76.0 Fatty (change of) liver, not elsewhere classified; Z80.0 Family history of malignant neoplasm of digestive organs; R14.0 Abdominal distension (gaseous); Z90.710 Acquired absence of both cervix and uterus; Z87.19 Personal history of other diseases of the digestive system; Z87.442 Personal history of urinary calculi; K59.09 Other constipation
CPT/HCPCS: 43248; 43239; 88305; 88312; 88342; A4216; C1769; J2405

== ENCOUNTER → 2024-07-15 | Outpatient (CLI) | payer MEDICARE, MEDICAID, SELFPAY ==
[2024-07-17 08:07] LABS: Toxoplasma Gondii IgG < 3.0 IU/mL (0.0-7.1); Toxoplasma Gondii IgM < 3.0 AU/mL (0.0-7.9)
== END | disposition home or self-care (01) ==
PROVIDERS: PCP Student in an Organized Health Care Education/Training Program; Referring Provider Internal Medicine Gastroenterology; Visit Provider Internal Medicine Gastroenterology
DX: R10.11 Right upper quadrant pain (principal)
CPT/HCPCS: 36415; 86777; 86778